=== PATIENT | male | born 1955 | race Caucasian/White ===

== ENCOUNTER 2016-05-26 06:38 | Day surgery (SDC) | payer BC ==
[2016-05-25 09:17] VITALS: BMI 35.8
[2016-05-26] MEDS ORDERED: MIDAZOLAM 2 MG/2 ML VIAL ONE (08:43)
[2016-05-26] MEDS ORDERED: fentaNYL (PF) 50 MCG/ML 2 ML AMP ONE (08:43)
[2016-05-26] MEDS ORDERED: ISOPROTERENOL 250 MCG/1.25 ML SYR IV ONE (08:43)
[2016-05-26] MEDS ORDERED: HYDROmorphone (PF) 1 MG/ML ONE (08:43)
[2016-05-26] MEDS ORDERED: IV FLUID CONTINUATION 900 ML IV ONE (09:00)
[2016-05-26] MEDS: LIDOCAINE 2% INJ 20 MG/ML SQ ONE ×2 (09:30→09:35)
[2016-05-26] MEDS ORDERED: HYDROcodone/APAP 5-325MG 1 EACH TAB PO PRN (13:09)
--- NOTE | 2016-05-26 13:41 | LTR ---
May 26, 2016 RE: Shayy Aiden Luisito Dear Gregory; I had the pleasure of seeing Aiden Lucas in electrophysiology followup. Aiden has episodes of supraventricular tachycardia. He was brought in for an EP study. 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 I will now stop atenolol and will follow him clinically. The procedure was successful without any acute complications. Thank you for entrusting me with your patient. Warm regards. Sincerely, JYOTI KERNS MD
[2016-05-26 13:42] VITALS: RESP 16
--- NOTE | 2016-05-26 13:43 | DS ---
DATE OF ADMISSION: 05/26/2016 DATE OF DISCHARGE: Aiden Lucas is a 61-year-old male patient who underwent evaluation for SVT. He was found to AV denis re-entry, slow pathway mapping and ablation was performed. The tachycardia was rendered noninducible. He was monitored overnight on telemetry. Atenolol will be discontinued. All other medications will be continued and he will follow with me as an outpatient post discharge.
[2016-05-26] MEDS ORDERED: ACETAMINOPHEN IV (For NPO) 1,000 MG in EMPTY BAG 1 BAG IVPB ONE (14:00)
[2016-05-26] MEDS: SODIUM CHLORIDE 0.9% 1,000 ML IV SCH (15:20)
--- NOTE | 2016-05-26 16:44 | PCN ---
DATE OF PROCEDURE: Mr. Aiden Lucas is a 61-year-old male patient who presented to the emergency room at [facility] with supraventricular tachycardia. He was adenosine-sensitive. He was brought in for an EP study and radiofrequency ablation. The patient was brought to the EP lab in a fasting state. Written informed consent was obtained prior to the procedure. The left shoulder area was prepped and draped as per protocol. A venous sheath was placed in the left axillary vein. Via this a decapolar catheter was positioned in the coronary sinus for coronary sinus pacing and recording. The right groin was prepped and draped as per protocol and 3 venous sheaths were placed in the right femoral vein. Via these, 3 diagnostic catheters were positioned (high right atrial catheter, His bundle catheter, RV catheter). Baseline measurements were as follows: sinus cycle length 876 ms, FL interval 97 ms, QRS 101 ms, QT 423 ms. AH interval 101 ms, HV interval 30 ms. Sinus node recovery times at 600 and 500 ms were 1029 and 1018 ms. VA Wenckebach block was 340 ms on Isuprel. Further testing was also performed on Isuprel. SVT was induced with straight pacing. Tachycardia cycle length was 429 ms. This was entrained when pacing from the right ventricle. VAV response was noted. Post-pacing interval was long. Septal times were less than 60 ms. A long sheath was placed, and via this a 4 mm-tip ablation catheter was placed. Three-D mapping was performed. His clavicle was tagged. Coronary sinus also was tagged. The tricuspid annulus was tagged. Mapping of the slow pathway was performed. RF ablation after the septum ( ) resulted in appearance of junctional rhythm followed by sinus rhythm. RF lesions ( ) delivered around this area. No more junctional rhythm was noted. A power of 50 miller and temperatures in the mid 50s to 60 degrees Celsius were achieved. Following that, a full EP study was performed. Tachycardia was rendered non-inducible. Isuprel was started and a detailed EP study was performed with up to double extrastimuli from the high right atrium, double extrastimuli from the coronary sinus, straight pacing from these 2 sites as well as from the RV as well as ventricular extrastimulation. No SVT was induced. There was no further evidence for slow pathway conduction. Patient tolerated the procedure well without any acute complications. All catheters were removed and hemostasis was achieved. The patient was transferred back to the recovery room. RESULT: Diagnostic EP study revealing AV node re-entry as a mechanism of tachycardia. Successful mapping and ablation of the slow pathway. The tachycardia was rendered non-inducible and there was no evidence of slow pathway conduction of the end of the procedure. Patient tolerated the procedure well without any acute complications. PLAN: Stop atenolol. Continue antihypertensive therapy. Continue all other medications.
[2016-05-26] MEDS ORDERED: ACETAMINOPHEN TAB 325 MG TAB PO PRN (19:00)
[2016-05-26] MEDS ORDERED: MAG HYDROX/AL HYDROX/SIMETH 30 ML CUP PO PRN (22:58)
[2016-05-27] MEDS: SODIUM CHLORIDE 0.9% 1,000 ML IV SCH (06:00)
[2016-05-27 07:50] VITALS: BP 144/72; PULSE 82; TEMP 97.6
--- NOTE | 2016-05-27 08:26 | PN ---
Mr. Aiden Lucas is doing well from cardiac standpoint. He underwent a successful ablation with slow pathway for treatment of AV denis re-entry. He is lying flat in bed. He has been walking around. He has no chest pain. No breathing trouble. No dizziness, lightheadedness. His rhythm has been normal. His groins have healed well. There is no hematoma. On examination, he is afebrile 97.6 degrees Fahrenheit, blood pressure 137/80 mmHg, 144/72 mmHg, heart rate is in the 80s. Head and neck examination is normal. Heart sounds are normal. No murmurs or gallops. Breath sounds are equal air entry bilaterally. Abdomen is soft, nontender. IMPRESSION: 1. Supraventricular tachycardia, AV denis re-entry, status post ablation. 2. Hypertension, on olmesartan hydrochlorothiazide. 3. Dyslipidemia. 4. Obesity with a body mass index of 35.8. 5. Likely sleep apnea. SUGGEST: Sleep apnea assessment. Follow up in the office in a week's time for a groin check and his future followups for the cardiac workups have been arranged.
== END 2016-05-27 09:37 | disposition home or self-care (01) ==
LOC: CATHEP 06:38 → 3OBS 12:30 → CATHEP 05-27 09:37
PROVIDERS: ATTEND Internal Medicine Clinical Cardiac Electrophysiology
DX: I47.1 Supraventricular tachycardia (principal); I10 Essential (primary) hypertension; E78.5 Hyperlipidemia, unspecified; E66.9 Obesity, unspecified; Z68.35 Body mass index [BMI] 35.0-35.9, adult; R94.31 Abnormal electrocardiogram [ECG] [EKG]; G47.33 Obstructive sleep apnea (adult) (pediatric); Z82.49 Family history of ischemic heart disease and other diseases of the circulatory system; Z79.899 Other long term (current) drug therapy; Z88.5 Allergy status to narcotic agent; Z87.891 Personal history of nicotine dependence
CPT/HCPCS: 93623; 93613; 93653; C1894; C1769; C1730 ×3; C1732; C1893; J2001; J2250; J3010; J1170; J0131; 99152; 99153

== ENCOUNTER → 2017-01-10 | Outpatient (CLI) | payer BC ==
[2017-01-10 11:56] LABS: ALT 46 U/L (21-72); AST 28 U/L (17-59); Alkaline Phosphatase 70 U/L (38-126); Anion Gap 10 mmol/L; Blood Urea Nitrogen 11 mg/dL (9-20); C Reactive Protein 15.2 mg/L (<10.0); Calcium 9.7 mg/dL (8.4-10.2); Carbon Dioxide 26 mmol/L (22-30); Chloride 102 mmol/L (98-107); Creatine Kinase 61 U/L (55-170); Glucose 104 mg/dL (74-99); Non-African American GFR(MDRD) >60 (>60 ml/min/1.73 sqM); Potassium 4.1 mmol/L (3.5-5.1); Rheumatoid Factor, Qnt <9 IU/mL (<12); Sodium 138 mmol/L (137-145); Total Bilirubin 0.6 mg/dL (0.2-1.3); Total Protein 6.1 g/dL (6.3-8.2); Uric Acid 9.8 mg/dL (3.5-8.5)
[2017-01-10 12:18] LABS: Aty Lym Flag Slight; CH 35.4; CHCM 36.2; HCT 43.6 % (39.0-53.0); HDW 2.82; HGB 14.9 gm/dL (13.0-17.5); MCH 33.7 pg (25.0-35.0); MCHC 34.3 g/dL (31.0-37.0); MCV 98.3 fL (80.0-100.0); Mean Platelet Volume 7.8; RBC 4.44 m/uL (4.30-5.90); WBC 5.3 k/uL (3.8-10.6); WBC (Perox) 5.03
[2017-01-10 12:56] LABS: Add Differential Manual Differential
[2017-01-10 12:59] LABS: Manual Review Performed; Nucleated Red Blood Cells 0 /100 WBC (0-0); Total Cells Counted 100
[2017-01-10 13:52] LABS: Erythrocyte Sedimentation Rate 24 mm/hr (0-15)
[2017-01-10 18:04] LABS: ANA w/Reflex to Titer NEGATIVE (NEGATIVE)
== END | disposition home or self-care (01) ==
LOC: LABWHC1 11:11
PROVIDERS: ATTEND Internal Medicine
DX: I10 Essential (primary) hypertension (principal); M13.0 Polyarthritis, unspecified; R53.83 Other fatigue
CPT/HCPCS: 36415; 80053; 82306; 82550; 84439; 84443; 84481; 84550; 85025; 85652; 86038; 86140; 86431

== ENCOUNTER → 2017-02-18 | Outpatient (CLI) | payer BC ==
[2017-02-18 11:47] LABS: C Reactive Protein 11.9 mg/L (<10.0); Uric Acid 6.5 mg/dL (3.5-8.5)
== END | disposition home or self-care (01) ==
LOC: LABWHC1 10:48
PROVIDERS: ATTEND Internal Medicine
DX: M13.0 Polyarthritis, unspecified (principal)
CPT/HCPCS: 36415; 84550; 86140

== ENCOUNTER → 2017-06-19 | Outpatient (CLI) | payer BC ==
[2017-06-19 11:19] LABS: ALT 34 U/L (21-72); AST 20 U/L (17-59); Albumin 3.8 g/dL (3.5-5.0); Alkaline Phosphatase 66 U/L (38-126); Anion Gap 10 mmol/L; Blood Urea Nitrogen 15 mg/dL (9-20); Carbon Dioxide 30 mmol/L (22-30); Chloride 104 mmol/L (98-107); Cholesterol 173 mg/dL (<200); Glucose 95 mg/dL (74-99); HDL Cholesterol 50 mg/dL (40-60); LDL Cholesterol,Calculated 78 mg/dL (0-99); Potassium 4.6 mmol/L (3.5-5.1); Sodium 144 mmol/L (137-145); Total Bilirubin 0.6 mg/dL (0.2-1.3); Total Protein 6.5 g/dL (6.3-8.2); Triglycerides 225 mg/dL (<150); Uric Acid 6.6 mg/dL (3.5-8.5)
[2017-06-19 11:41] LABS: Basophils % (A) 0 %; Eosinophils # (A) 0.1 k/uL (0-0.7); Eosinophils % (A) 1 %; HCT 46.3 % (39.0-53.0); HGB 15.3 gm/dL (13.0-17.5); Lymphocytes # (A) 1.3 k/uL (1.0-4.8); Lymphocytes % (A) 15 %; MCH 33.1 pg (25.0-35.0); MCHC 33.1 g/dL (31.0-37.0); MCV 99.8 fL (80.0-100.0); Mean Platelet Volume 7.3; Monocytes # (A) 0.7 k/uL (0-1.0); Monocytes % (A) 8 %; Neutrophils # (A) 6.3 k/uL (1.3-7.7); Neutrophils % (A) 73 %; Platelet Count 241 k/uL (150-450); RBC 4.64 m/uL (4.30-5.90); RDW 12.6 % (11.5-15.5); WBC 8.6 k/uL (3.8-10.6)
[2017-06-19 11:45] LABS: PSA Annual Screen 0.71 ng/mL (0.00-4.00)
== END | disposition home or self-care (01) ==
LOC: LABWHC1 10:31
PROVIDERS: ATTEND Internal Medicine
DX: Z00.00 Encounter for general adult medical examination without abnormal findings (principal); I10 Essential (primary) hypertension; E78.2 Mixed hyperlipidemia; M1A.00X0 Idiopathic chronic gout, unspecified site, without tophus (tophi); Z12.5 Encounter for screening for malignant neoplasm of prostate
CPT/HCPCS: 80061; 80053; 84550; 85025; 36415; G0103

== ENCOUNTER → 2017-09-15 | Outpatient (CLI) | payer BC ==
--- NOTE | 2017-09-15 12:33 | XR ---
EXAMINATION TYPE: XR lumbosacral spine min 4V DATE OF EXAM: 09/15/2017 CLINICAL HISTORY: pain COMPARISON: NONE TECHNIQUE: Frontal, lateral, and oblique images of the lumbar spine are obtained. FINDINGS: There are 5 lumbar type vertebral bodies identified. The lumbar spine shows satisfactory alignment without evidence of acute fracture or dislocation. Vertebral body heights are within normal limits. Moderate to severe multilevel degenerative disc space narrowing with spondylosis. Facet join t arthropathy. Grade 1 anterolisthesis L4 and L5 measuring 3 mm. I cannot exclude right-sided nephrol ithiasis. IMPRESSION: 1. Degenerative disc disease and spondylosis.
--- NOTE | 2017-09-15 12:36 | XR ---
EXAMINATION TYPE: XR Hip Bilateral Complete DATE OF EXAM: 09/15/2017 CLINICAL HISTORY: pain TECHNIQUE: AP and frogleg views of the bilateral hips are obtained. COMPARISON: None. FINDINGS: There is no acute fracture/dislocation evident. The joint space appears mildly narrowed. Osseous convex to the at the femoral necks bilaterally may reflect a degree of femoral acetabular i mpingement. The overlying soft tissue appears unremarkable. IMPRESSION: 1. Degenerative joint space narrowing. Correlate for femoral acetabular impingement. ICD 10 NO FRACTURE, INITIAL EVALUATION
== END | disposition home or self-care (01) ==
LOC: RADXRMAIN 11:41
PROVIDERS: ATTEND Internal Medicine
DX: M54.6 Pain in thoracic spine (principal); M25.552 Pain in left hip; M25.551 Pain in right hip
CPT/HCPCS: 72110; 73521

== ENCOUNTER → 2017-12-16 | Outpatient (CLI) | payer OTHER, BC ==
[2017-12-16 11:29] LABS: Basophils % (A) 1 %; Eosinophils # (A) 0.2 k/uL (0-0.7); Eosinophils % (A) 4 %; HCT 44.9 % (39.0-53.0); HGB 14.9 gm/dL (13.0-17.5); Lymphocytes # (A) 1.4 k/uL (1.0-4.8); Lymphocytes % (A) 21 %; MCH 32.6 pg (25.0-35.0); MCHC 33.3 g/dL (31.0-37.0); MCV 97.8 fL (80.0-100.0); Mean Platelet Volume 7.3; Monocytes # (A) 0.7 k/uL (0-1.0); Monocytes % (A) 10 %; Neutrophils # (A) 3.8 k/uL (1.3-7.7); Neutrophils % (A) 60 %; Platelet Count 265 k/uL (150-450); RBC 4.59 m/uL (4.30-5.90); RDW 13.1 % (11.5-15.5); WBC 6.3 k/uL (3.8-10.6)
[2017-12-16 11:49] LABS: ALT 36 U/L (21-72); AST 30 U/L (17-59); Albumin 3.9 g/dL (3.5-5.0); Alkaline Phosphatase 60 U/L (38-126); Anion Gap 7 mmol/L; Blood Urea Nitrogen 13 mg/dL (9-20); Calcium 9.7 mg/dL (8.4-10.2); Carbon Dioxide 29 mmol/L (22-30); Chloride 106 mmol/L (98-107); Cholesterol 130 mg/dL (<200); Glucose 105 mg/dL (74-99); HDL Cholesterol 44 mg/dL (40-60); LDL Cholesterol,Calculated 45 mg/dL (0-99); Potassium 4.6 mmol/L (3.5-5.1); Sodium 142 mmol/L (137-145); Total Bilirubin 0.8 mg/dL (0.2-1.3); Total Protein 6.3 g/dL (6.3-8.2); Triglycerides 207 mg/dL (<150); Uric Acid 6.2 mg/dL (3.5-8.5)
== END | disposition home or self-care (01) ==
LOC: LABWHC1 10:49
PROVIDERS: ATTEND Internal Medicine
DX: I10 Essential (primary) hypertension (principal); E78.2 Mixed hyperlipidemia; M10.9 Gout, unspecified
CPT/HCPCS: 36415; 80053; 80061; 84550; 85025

== ENCOUNTER → 2017-12-18 | Outpatient (CLI) | payer OTHER, BC ==
--- NOTE | 2017-12-18 18:39 | XR ---
EXAMINATION TYPE: XR lumbosacral spine min 4V DATE OF EXAM: 12/18/2017 COMPARISON: 09/15/2017 HISTORY: Hip pain and back pain TECHNIQUE: 5 views FINDINGS: The lumbar vertebra have normal alignment. There is spurring of the endplates. Abdominal ao rta is atheromatous. Sacroiliac joints appear intact. There is 5 mm calcification in the upper pole r ight kidney. IMPRESSION: Spondylotic changes. No fracture. No change compared to old exam.
--- NOTE | 2017-12-19 07:55 | XR ---
EXAMINATION TYPE: XR Hip Complete RT, XR pelvis AP view DATE OF EXAM: 12/18/2017 CLINICAL HISTORY: pain TECHNIQUE: AP and frogleg views of the right hip are obtained. Single view the pelvis is also submit christian. COMPARISON: None. FINDINGS: There is no acute fracture/dislocation evident. Moderate degenerative narrowing is noted o f the bilateral hip joints right greater than left. Osseous convex is noted at the lateral margin of the right femoral head/neck which may result in femoral acetabular impingement. Correlate clinically. The overlying soft tissue appears unremarkable. IMPRESSION: 1. There is no acute fracture or dislocation. ICD 10 NO FRACTURE, INITIAL EVALUATION
== END | disposition home or self-care (01) ==
LOC: RADXRMAIN 17:23
PROVIDERS: ATTEND Internal Medicine
DX: M25.551 Pain in right hip (principal); M54.41 Lumbago with sciatica, right side
CPT/HCPCS: 72110; 72170; 73502

== ENCOUNTER → 2018-02-22 | Outpatient (CLI) | payer OTHER, BC ==
[2018-02-22 12:26] LABS: Appearance,Urine Clear (Clear); Bilirubin,Urine Negative (Negative); Blood,Urine Negative (Negative); Color,Urine Yellow; Glucose,Urine (UA) Negative (Negative); Ketones,Urine Negative (Negative); Leukocyte Esterase,Urine Negative (Negative); Nitrite,Urine Negative (Negative); PH, Urine 5.5 (5.0-8.0); Protein,Urine Negative (Negative); Specific Gravity,Urine 1.018 (1.001-1.035); Urobilinogen,Urine <2.0 mg/dL (<2.0)
== END ==
LOC: LABWHC1 11:15
PROVIDERS: ATTEND Physical Medicine & Rehabilitation
DX: M54.5 Low back pain (principal); M45.6 Ankylosing spondylitis lumbar region; M47.26 Other spondylosis with radiculopathy, lumbar region; M51.17 Intervertebral disc disorders with radiculopathy, lumbosacral region; M71.38 Other bursal cyst, other site; G60.3 Idiopathic progressive neuropathy; M16.11 Unilateral primary osteoarthritis, right hip
CPT/HCPCS: 36415; 81003; 82310; 83970; 84207; 84425; 87522

== ENCOUNTER → 2018-05-18 | Outpatient (CLI) | payer BC, MEDICARE ==
[2018-05-18 11:34] LABS: HCT 44.7 % (39.0-53.0); HGB 15.1 gm/dL (13.0-17.5); MCH 33.6 pg (25.0-35.0); MCHC 33.7 g/dL (31.0-37.0); MCV 99.8 fL (80.0-100.0); Mean Platelet Volume 7.7; Platelet Count 283 k/uL (150-450); RBC 4.48 m/uL (4.30-5.90); RDW 13.6 % (11.5-15.5); WBC 6.4 k/uL (3.8-10.6)
[2018-05-18 11:41] LABS: Appearance,Urine Clear (Clear); Bilirubin,Urine Negative (Negative); Blood,Urine Negative (Negative); Color,Urine Yellow; Glucose,Urine (UA) Negative (Negative); Ketones,Urine Negative (Negative); Leukocyte Esterase,Urine Negative (Negative); Nitrite,Urine Negative (Negative); PH, Urine 5.5 (5.0-8.0); Protein,Urine Negative (Negative); Specific Gravity,Urine 1.011 (1.001-1.035); Urobilinogen,Urine <2.0 mg/dL (<2.0)
[2018-05-18 11:43] LABS: ALT 36 U/L (21-72); AST 24 U/L (17-59); Albumin 3.9 g/dL (3.5-5.0); Alkaline Phosphatase 50 U/L (38-126); Anion Gap 6 mmol/L; Blood Urea Nitrogen 16 mg/dL (9-20); Calcium 10.1 mg/dL (8.4-10.2); Carbon Dioxide 29 mmol/L (22-30); Chloride 106 mmol/L (98-107); Glucose 102 mg/dL (74-99); Potassium 4.7 mmol/L (3.5-5.1); Sodium 141 mmol/L (137-145); Total Bilirubin 0.9 mg/dL (0.2-1.3); Total Protein 6.5 g/dL (6.3-8.2)
[2018-05-18 11:48] LABS: INR 0.9 (<1.2); Prothrombin Time 9.8 sec (9.0-12.0)
[2018-05-18 11:50] LABS: Partial Thromboplastin Time 21.6 sec (22.0-30.0)
== END | disposition home or self-care (01) ==
LOC: LABPAT 10:17
PROVIDERS: ATTEND Orthopaedic Surgery Sports Medicine
DX: Z01.818 Encounter for other preprocedural examination (principal); Z01.812 Encounter for preprocedural laboratory examination; Z79.01 Long term (current) use of anticoagulants
CPT/HCPCS: 80053; 81003; 85027; 85610; 85730; 87070; 93005

== ENCOUNTER 2018-06-06 11:22 | Inpatient (IN) | payer BC, MEDICARE ==
[2018-06-01 14:59] VITALS: BMI 33.2
[~2018-06-06 11:22] MED LIST: MIDAZOLAM (PF) 2 MG/2 ML VIAL IV PRN; ONDANSETRON 4 MG/2 ML VIAL IVP ONE; ROPIVACAINE 246.25 MG, EPINEPHrine 0.5 MG, KETOROLAC 30 MG, cloNIDine HCL/PF 80 MCG, WA... MISCELLANE ONE; TRANEXAMIC ACID 1,000 MG in SODIUM CHLORIDE 0.9% 50 ML IVPB ONE; ceFAZolin IN SWFI 2 GM/20 ML SYRINGE IVP ONE
[2018-06-06] MEDS ORDERED: NALOXONE 0.4 MG/ML 1 ML VIAL IV PRN (13:21)
[2018-06-06] MEDS ORDERED: hydrOXYzine PAMOATE 25 MG CAP PO PRN (13:21)
[2018-06-06] MEDS ORDERED: HYDROcodone/APAP 5-325MG 1 EACH TAB PO PRN ×2 (13:21)
[2018-06-06] MEDS ORDERED: NA PHOS,M-B/NA PHOS,DI-BA 133 ML ENEMA RECTAL PRN (13:21)
[2018-06-06] MEDS ORDERED: HYDROcodone/APAP 10-325MG 1 EACH TAB PO PRN (13:21)
[2018-06-06] MEDS ORDERED: ONDANSETRON 4 MG/2 ML VIAL IVP PRN (13:21)
[2018-06-06] MEDS ORDERED: BISACODYL 10 MG SUPP RECTAL PRN (13:21)
[2018-06-06] MEDS ORDERED: HYDROmorphone 0.5 MG/0.5 ML SYRINGE IVP PRN ×3 (13:21)
[2018-06-06] MEDS ORDERED: DIAZEPAM 5 MG TAB PO PRN (13:21)
[2018-06-06] MEDS ORDERED: MAGNESIUM HYDROXIDE 2,400 MG/10 ML CUP PO PRN (13:21)
[2018-06-06] MEDS ORDERED: traMADol 50 MG TAB PO PRN (13:21)
[2018-06-06] MEDS ORDERED: TEMAZEPAM 15 MG CAP PO PRN (13:21)
[2018-06-06] MEDS: LACTATED RINGERS 1,000 ML IV SCH ×3 (13:27→23:15)
[2018-06-06] MEDS: DEXAMETHASONE SOD PHOSPHATE 10 MG/ML 1 ML VIAL IV ONE ×2 (13:29→19:20)
[2018-06-06] MEDS ORDERED: ONDANSETRON 4 MG/2 ML VIAL IVP ONE (13:29)
[2018-06-06] MEDS: MELOXICAM 7.5 MG TAB PO ONE ×2 (13:30→19:20)
[2018-06-06] MEDS: ACETAMINOPHEN TAB 500 MG TAB PO ONE ×2 (13:30→19:19)
[2018-06-06] MEDS ORDERED: MIDAZOLAM 2 MG/2 ML VIAL ONE (14:45)
[2018-06-06] MEDS ORDERED: SUCCINYLCHOLINE CHLORIDE VIAL 200 MG/10 ML VIAL IV ONE (14:45)
[2018-06-06] MEDS ORDERED: TRANEXAMIC ACID 1,000 MG/10 ML VIAL ONE (14:45)
[2018-06-06] MEDS ORDERED: PROPOFOL 10 MG/ML 20 ML VIAL IV ONE (14:45)
[2018-06-06] MEDS ORDERED: PHENYLEPHRINE-0.9% NACL SYG 1 MG/10 ML SYRINGE ONE (14:45)
[2018-06-06] MEDS ORDERED: SODIUM CHLORIDE 0.9% 100 ML BAG ONE (14:45)
[2018-06-06] MEDS ORDERED: fentaNYL (PF) 50 MCG/ML 2 ML AMP ONE (14:45)
[2018-06-06] MEDS ORDERED: ePHEDrine SULFATE/0.9% NACL/PF 50 MG/5 ML SYRINGE IV ONE (14:45)
[2018-06-06] MEDS ORDERED: HYDROmorphone (PF) 1 MG/ML ONE (14:45)
[2018-06-06] MEDS ORDERED: LIDOCAINE 1% INJ 10MG/ML (20 ML MDV) ONE (14:45)
[2018-06-06] MEDS ORDERED: LACTATED RINGERS 1,000 ML IV ONE (16:42)
[2018-06-06] MEDS: HYDROmorphone 0.5 MG/0.5 ML SYRINGE IVP PRN ×2 (17:18→17:30)
--- NOTE | 2018-06-06 17:27 | XR ---
EXAMINATION TYPE: XR knee limited RT DATE OF EXAM: 06/06/2018 COMPARISON: NONE HISTORY: Postop knee surgery TECHNIQUE: 2 views FINDINGS: There is right knee prosthesis. Components are in anatomic position. IMPRESSION: No complicating process seen.
[2018-06-06] MEDS: ASPIRIN 325 MG TAB PO SCH (20:10)
[2018-06-06] MEDS: SENNOSIDES-DOCUSATE SODIUM 1 EACH TAB PO SCH (20:10)
--- NOTE | 2018-06-06 20:13 | OP ---
OPERATIVE REPORT DATE OF PROCEDURE: 06/06/2018 SURGEON: Carl Mcgee MD. FINAL APPLICATION REVIEWER: Porter DING. PREOPERATIVE DIAGNOSIS: Right knee osteoarthrosis. POSTOPERATIVE DIAGNOSIS: Right knee osteoarthrosis. OPERATION: Right total knee arthroplasty. ANESTHESIA: General endotracheal. ESTIMATED BLOOD LOSS: 100 mL. TOURNIQUET TIME: 45 minutes at 250 mmHg. COMPLICATIONS: None apparent. DRAINS: None. DISPOSITION: Post-Anesthesia Care Unit. INDICATIONS: Aiden is a very pleasant 63-year-old male with a longstanding history of right knee pain. History and physical examination were consistent with advanced right knee osteoarthrosis. He has been through a fairly significant course of nonoperative management at this point. Further treatment options were discussed, and he has decided to go forward with right total knee arthroplasty. The risks of the procedure were discussed with him in detail. These risks include but are not limited to risk of infection, nerve damage, bleeding, pain, and a small risk of deep vein thrombosis which could lead to fatal pulmonary embolism. There is also a risk of loosening of the implant which could require revision operation. The patient understands these risks. All of his questions were answered to his satisfaction. Appropriate informed consent was obtained. DESCRIPTION OF THE PROCEDURE: The patient was identified in the preoperative holding area. Surgical site was marked by both the patient and myself. He was given 2 grams of Ancef IV for prophylactic purposes. He was then transferred to the operative suite. He was placed supine on the operating room table. A general anesthetic was then administered and dosed per the anesthesia department without apparent complication. Examination under anesthesia was then performed. The patient was 2-3 degrees shy of full extension. He had 100 degrees of flexion, and the medial collateral ligament, lateral collateral ligament and posterior cruciate ligaments were stable. Tourniquet was then placed high on the right upper thigh, well padded in preparation for surgery. The patient's right lower extremity was then prepped and draped in the usual sterile fashion. Standard surgical pause then was undertaken to ensure that we were operating on the correct site and that appropriate preoperative antibiotics had been given. All staff in the room were in agreement and we proceeded. The outlines of the patella were marked with a surgical pen. A planned 12 cm vertical incision centered over the patella was marked with a surgical pen. The leg was then exsanguinated with an Esmarch dressing. The knee was then flexed and the tourniquet was inflated to 250 mmHg. The total tourniquet time for the procedure was 45 minutes. Incision was then made with a 10-blade scalpel. Dissection was carried down sharply to the overlying fascia. Great care was taken to minimize the skin flaps. The knee was then exposed using a standard medial parapatellar approach. A small cuff of quadriceps tendon was left for suturing. He was in a bit of varus preoperatively. A standard medial release was then made. The superficial medial collateral ligament was dissected off of the bone around to the posterior aspect of the proximal tibia. The medial meniscus was then excised as well. The lateral meniscus was also released anteriorly. The leg was then externally rotated. The patella was everted. The knee was flexed. The retractors were then placed to protect the collateral ligaments. I then proceeded to remove the infrapatellar fat pad. This was excised sharply tangentially with the fibers of the patellar tendon. I then proceeded to remove the peripheral osteophytes. This was done with a rongeur. I then proceeded with the distal femoral resection. He did have near-full extension. The planned 9 mm resection was then done. The femoral canal was then entered in the midline of the femur approximately 10 mm anterior to the origin of the posterior cruciate ligament. The ying was then advanced down the center of the femur and placed intramedullary. Based on the preoperative radiographs, the angle between the anatomic and mechanical axis of the femur was approximately 4-5 degrees. The valgus angle of the distal femoral cutting guide was then set at 4 degrees for the right knee. The distal femoral cutting guide was then advanced over the intramedullary ying. This was seated firmly against the femur. I then, as mentioned, planned to take 9 mm off the distal femur. The cutting block was then secured onto the femur with pins. The jig was removed and the distal femoral cut was made through the slot of the block. The pins were then removed and the distal femoral cutting block was removed. The accuracy of the distal femoral cuts was checked with 2 flat bars. I then proceeded with femoral sizing. The posterior referencing sizing guide was held firmly against the resected distal surface of the femur. Posterior condyles were resting on the posterior plane of the guide. The sizing stylus was then placed onto the anterior femur. The size was measured as a size 9. I then assessed for femoral rotation. Plan was for 3 degrees of external rotation. Three degrees of external rotation was placed onto the jig. These holes were then marked. I then confirmed the rotation by 3 separate methods. This was done using epicondylar axis as well as Whitesides line and posterior referencing. It was deemed that the external rotation was proper. I then went forward with placing the femoral cutting block. This was placed over the previously placed pin holes. The Ryan wing was then placed on to the anterior slots to ensure that we would not notch the anterior femur with the anterior femoral cut. I then proceed with the anterior femoral cut. This was flush with the anterior cortex of the femur. Posterior cuts were then made followed by the anterior chamfer cut, then the posterior chamfer cut. The cutting block was then removed. Throughout the resection, the collateral ligaments were protected with retractors. I then placed a trial size 9 femur. It fit very nice medial to lateral and fit flush with the distal end of the femur. The drill holes were then made. I then proceeded with the tibial cut. I planned for a cruciate-retaining knee. The guide was placed and set for varus, valgus and for slope. The height was set for an approximate 2 mm resection from the medial tibial plateau, which was the lower side. I was happy with the alignment and amount of resection. The cutting block was then pinned to the proximal tibia. The alignment ying was removed and the proximal tibia was resected with a reciprocating saw. Again this was done with retractors protecting the collateral ligaments as well as the posterior cruciate ligament. I then proceeded to evaluate the flexion and extension gaps. A 10 mm block was placed. The flexion and extension gaps were equal. I then proceeded with resection of the posterior osteophytes. He had very minimal posterior osteophytes. This was done using a curved osteotome. This resected the posterior osteophytes, and posterior capsule stripping was also done off the posterior aspect of the femur. The osteophytes were removed. I then proceeded with resection of the patella. The thickness of the patella was measured using the caliper. The thickness was measured at 24 mm. The thickness of the anticipated patellar dome was taken into account. The resection was then performed and confirmed to be equal in 4 quadrants using a caliper. Approximately 14 mm of bone remained after the resection. A 32 x 8.5 mm standard patellar trial was then placed. The holes were drilled. The trial was then placed. I then proceeded with sizing the tibial plate. A size F tibial plate fit very nicely. I then placed the trial femur, the tibial tray and the patellar button. A 10 mm trial tibial insert was also placed. The components fit very nicely. He had full extension and flexion. The extension and flexion gaps were equal and stable to both varus and valgus stress. The patella tracked appropriately. Tibial tray rotation was marked with a Bovie. This was externally rotated properly. I then proceeded with tibial preparation. I first drilled the femoral holes and removed the femoral component. The tibial tray was then set for proper external rotation as well as mediolateral placement onto the tibia. It was then pinned into place. I then proceeded with punching the keel. I then decided to proceed with cementing of all of our components. The knee was thoroughly irrigated with sterile saline solution via pulse lavage. The lateral geniculate artery was identified and cauterized. All blood was removed from the bone of the tibia, femur and patella with pulse lavage. I then proceeded with cementing. Two packs of antibiotic bone cement were prepared on the back table by the surgical brace maker. I then proceeded with cementing the tibia first. The cement was impacted into the keel as well as deeply seated into the bone. A second coat of cement was then placed. The tibia was then impacted into place. Excess cement was removed with Willards's and Joker's. I then proceed with cementing the femoral component. The femoral component was also cemented using standard technique. Excess cement was removed. A 10 mm trial insert was then placed into the knee. It was brought into full extension with a constant axial load placed until the cement had hardened. The patellar component was then cemented. This was held firmly with a compressive device until the cement had dried. When cement had dried, the knee was taken out of extension. All excess cement was removed from around the prosthesis. I then trialed the knee with a 10 mm insert. The flexion and extension gaps were appropriate. The knee was stable. It came into full extension. I decided to go forward with a 10 mm cross-linked cruciate-retaining tibial insert. Polyethylene was then placed onto the tibial tray and locked into place. The knee was then reduced. The knee was again further irrigated with sterile saline solution with antibiotic added. The tourniquet was then deflated. The total tourniquet time for the procedure was 45 minutes at 250 mmHg. Final components were Vinod Persona size 9 cruciate-retaining femoral component, a size F tibial tray, a 10 mm medial-congruent cruciate-retaining polyethylene insert, and a 32 x 8.5 mm patella. I then proceeded with closure. Again the knee was thoroughly irrigated. The quadriceps tendon and the medial retinaculum were reapproximated with #2 Ethibond suture. The extensor mechanism was then closed with a running #2 Quill suture. Subcutaneous tissues were then closed with 2-0 Vicryl interrupted suture. The skin was closed with a running 3-0 Quill suture. Dermabond was applied to the incision. Sterile compressive dressing was then applied. All sponge and needle counts were deemed correct prior to closure. The patient tolerated the procedure without apparent complication. He was transferred to the recovery room in stable. MMODL / IJN: [id number] /
[2018-06-06] MEDS ORDERED: DOXEPIN 25 MG CAP PO PRN (21:10)
[2018-06-06] MEDS ORDERED: NADOLOL 20 MG TAB PO PRN (21:10)
--- NOTE | 2018-06-06 22:44 | P.CONS ---
History of Present Illness - Reason for Consult Consult date: 06/06/18 post op medical management Requesting physician: Carl Mcgee - Chief Complaint s/p elective right total knee replacement - History of Present Illness 63-year-old male with history of hypertension hyperlipidemia and childhood asthma Patient presented electively for right total knee arthroplasty due to severe advanced degenerative joint disease refractory to conservative management pain has been interfering with activities of daily living. Patient tolerated procedure well he is seen postoperatively no immediate observed complications, patient did not pass urine or bowel movements. He tolerated by mouth intake denies any chest pain or trouble breathing he reports that pain is well tolerated and controlled at this time. Patient denies any fevers or chills, denies any shortness of breath or chest pain, denies any abdominal pain nausea vomiting. Patient denies any GI bleeding. Patient denies any focal neurologic deficits. History of asthma patient is well controlled he doesn't use anything at home he outgrew it since he was a kid. Review of Systems Pertinent positives as noted in HPI. All other systems were reviewed and are negative Past Medical History Past Medical History: Asthma, Hyperlipidemia, Hypertension, Osteoarthritis (OA) Additional Past Medical History / Comment(s): HX OF SVT WITH CARDIAC ABLATION, PAST HX OF ASTHMA., GOUT., BACK PAIN WITH ABLATION OF NERVES IN BACK (05/21/18). , TINNITUS LEFT EAR, SYNTHETIC EAR DRUM LEFT EAR., PAIN RIGHT KNEE. History of Any Multi-Drug Resistant Organisms: None Reported Past Surgical History: Cardiac Ablation, Cholecystectomy, Ear Surgery, Orthopedic Surgery Additional Past Surgical History / Comment(s): Knee arthroscopy right knee x3. Mass on chest wall. Nasal surg. LEFT TYMPANOPLASTY, synthetic ear drum. , rooster comb injections in knee., ablation of nerves in back (Dr Bull) Past Anesthesia/Blood Transfusion Reactions: No Reported Reaction, Motion Sickness Past Psychological History: No Psychological Hx Reported Smoking Status: Former smoker Past Alcohol Use History: Occasional Additional Past Alcohol Use History / Comment(s): QUIT SMOKING 17 YRS AGO (1999) , SMOKED UP TO 2 PPD. Past Drug Use History: None Reported - Past Family History Father Family Medical History: Cancer Additional Family Medical History / Comment(s): PANCREATIC CANCER Brother(s) Family Medical History: Cancer Additional Family Medical History / Comment(s): BLADDER CANCER Sister(s) Family Medical History: Cancer Additional Family Medical History / Comment(s): BREAST CANCER Medications and Allergies Home Medications Medication Instructions Recorded Confirmed Type Atorvastatin [Lipitor] 10 mg PO QAM 07/28/15 06/06/18 History Olmesartan/Hydrochlorothiazide 1 tab PO QAM 07/28/15 06/06/18 History [Benicar Hct 20-12.5 mg Tablet] Ascorbic Acid [Vitamin C] 1,000 mg PO DAILY 06/01/18 06/06/18 History Doxepin [SINEquan] 25 mg PO HS PRN 06/01/18 06/06/18 History Febuxostat [Uloric] 40 mg PO DAILY PRN 06/01/18 06/06/18 History Multivitamins, Thera [Multivitamin 1 tab PO DAILY 06/01/18 06/06/18 History (formulary)] Nadolol [Corgard] 10 mg PO BID PRN 06/01/18 06/06/18 History Naproxen Sodium [Aleve] 220 mg PO DIRECTED PRN MDD 440 06/01/18 06/06/18 History Tart [place] Tab With Turmeric 1 tab PO DAILY 06/01/18 06/06/18 History Vitamin B Complex 1 cap PO DAILY 06/01/18 06/06/18 History Allergies Allergy/AdvReac Type Severity Reaction Status Date / Time propoxyphene napsylate Allergy Rash/Hives Verified 06/06/18 16:32 [From Veronica-N] adhesive tape AdvReac Unknown red , Verified 06/06/18 16:32 irritated skin Rooster Comb Injection Allergy Unknown Rash/Hives Uncoded 06/06/18 13:22 Physical Exam Vitals: Vital Signs Temp Pulse Resp BP Pulse Ox 06/06/18 18:15 98.1 F 76 16 144/75 94 L 06/06/18 17:45 76 16 116/70 93 L 06/06/18 17:30 82 16 116/64 96 06/06/18 17:17 80 16 114/63 96 06/06/18 17:02 78 16 122/62 100 06/06/18 16:50 96.9 F L 78 16 114/65 100 06/06/18 13:20 97.0 F L 69 16 173/81 100 Intake and Output 06/06/18 06/06/1819 06:59 14:59 22:59 Intake Total 1000 250 Output Total 100 Balance 1000 150 Intake: IV 1000 250 Output: Estimated Blood Loss 100 Constitutional: No acute distress, conversant, pleasant Eyes: Anicteric sclerae, moist conjunctiva, no lid-lag Pupils equal round reactive to light ENMT: NC/AT Oropharynx clear, no erythema, no exudates Neck: Supple, FROM, no masses, or JVD No carotid bruits No thyromegaly Lungs: Clear to auscultation Clear to percussion Normal respiratory effort, no accessory muscle use Cardiovascular: Heart regular in rate and rhythm, No murmurs, gallops, or rubs No peripheral edema Abdominal: Soft Nontender, no guarding, rebound or rigidity Abdomen moving with respiration Normoactive bowel sounds No hepatomegaly, No splenomegaly No palpable mass No abdominal wall hernia noted Skin: Normal temperature, tone, texture, turgor No induration No subcutaneous nodules No rash, lesions No ulcers Extremities: Right knee and surgical dressing looks dry intact and clean No digital cyanosis No clubbing Pedal pulses intact and symmetrical Radial pulses intact and symmetrical No calf tenderness Psychiatric: Alert and oriented to person, place and time Appropriate affect fair judgment Neuro Muscles Strength 5/5 in all 4 extremities limited exam over right lower extremity due to post surgery Sensation to light touch grossly present throughout Cranial nerves II-XII grossly intact No focal sensory deficits Lymphatics: no palpable cervical or supraclavicular , or inguinal lymph nodes Assessment and Plan Assessment: 63-year-old male with history of hypertension presented for elective right total knee arthroplasty patient is seen postoperatively for management of hypertension. Plan: Right knee osteoarthritis status post total knee arthroplasty postoperative day 0 Management per orthopedics for DVT prophylaxis and pain control Incentive spirometry Hypertension currently controlled Resume home medications Hyperlipidemia resume statin DVT prophylaxis per orthopedic recommendations Follow-up morning labs hemoglobin and renal function Patient is full code Thank you for allowing us to participate in the care of this patient. Do not hesitate to contact us with questions. Someone can be reached from the [facility] hospitalist group at all hours of the day at [phone].
[2018-06-06] MEDS: HYDROcodone/APAP 7.5-325MG 1 EACH TAB PO PRN (22:46)
[2018-06-07] MEDS: ceFAZolin IN SWFI 2 GM/20 ML SYRINGE IVP SCH ×2 (00:20→08:32)
[2018-06-07] MEDS: LACTATED RINGERS 1,000 ML IV SCH ×2 (01:44→14:21)
[2018-06-07] MEDS: HYDROCHLOROTHIAZIDE 12.5 MG CAP PO SCH (08:30)
[2018-06-07] MEDS: ATORVASTATIN 10 MG TAB PO SCH (08:30)
[2018-06-07] MEDS: MULTIVITAMINS, THERA 1 EACH TAB PO SCH (08:30)
[2018-06-07] MEDS: ASPIRIN 325 MG TAB PO SCH ×2 (08:31→20:28)
[2018-06-07] MEDS: LOSARTAN 50 MG TAB PO SCH (08:31)
[2018-06-07 08:36] LABS: Basophils % (A) 0 %; Eosinophils % (A) 0 %; HCT 41.3 % (39.0-53.0); HGB 13.6 gm/dL (13.0-17.5); Lymphocytes # (A) 0.8 k/uL (1.0-4.8); Lymphocytes % (A) 5 %; Macrocytosis Slight; Mean Platelet Volume 7.1; Monocytes % (A) 7 %; Neutrophils # (A) 13.1 k/uL (1.3-7.7); Neutrophils % (A) 87 %; Platelet Count 205 k/uL (150-450); RBC 4.01 m/uL (4.30-5.90); RDW 13.3 % (11.5-15.5); WBC 15.2 k/uL (3.8-10.6)
[2018-06-07] MEDS ORDERED: OLMESARTAN PO SCH (09:00)
[2018-06-07] MEDS ORDERED: [UNRECOGNIZED DRUG - OTHER] PO SCH (09:00)
[2018-06-07] MEDS ORDERED: HYDROCHLOROTHIAZIDE PO SCH (09:00)
--- NOTE | 2018-06-07 09:45 | P.PN ---
Subjective Progress Note Date: 06/07/18 Principal diagnosis: Right TKA Patient is seen at bedside this morning. He is postop day #1 from right total knee arthroplasty.. He has pain at the surgical site as expected but denies any new complaints. He denies numbness, tingling or calf pain. Review of systems is negative for fever, chills, chest pain, shortness of breath or other Objective - Vital Signs Vital signs: Vital Signs Temp 97.6 F 06/07/18 08:33 Pulse 75 06/07/18 08:33 Resp 18 06/07/18 08:33 BP 163/69 06/07/18 08:33 Pulse Ox 99 06/07/18 08:33 Intake & Output 06/06/18 06/07/18 06/07/18 18:59 06:59 18:59 Intake Total 1250 1890 Output Total 100 Balance 1150 1890 Intake: IV 1250 Intake, IV Titration 1000 Amount Lactated Ringers 1,000 ml 1000 @ 100 mls/hr IV .Q10H ALFA Rx#:[id number] Oral 890 Output: Estimated Blood Loss 100 Other: # Voids 2 - Exam Inspection reveals a benign surgical wound. There is no active bleeding or drainage. Neurovascular status is intact throughout the lower extremity with motor and sensation fully intact. Calf is soft and nontender. 2+ dorsalis pedis pulse and less than 2 second cap refill is present. - Constitutional General appearance: Present: no acute distress - Labs CBC & Chem 7: 06/07/18 07:32 Labs: Abnormal Lab Results - Last 24 Hours (Table) 06/07/18 Range/Units 07:32 WBC 15.2 H (3.8-10.6) k/uL RBC 4.01 L (4.30-5.90) m/uL MCV 103.0 H (80.0-100.0) fL Neutrophils # 13.1 H (1.3-7.7) k/uL Lymphocytes # 0.8 L (1.0-4.8) k/uL Assessment and Plan (1) Osteoarthritis of right knee Narrative/Plan: He will continue with routine postop orthopedic protocol including pain management, wound care, PT, DVT prophylaxis and medical management. Expect that he will transfer to home tomorrow Current Visit: Yes Status: Acute Priority: Medium Code(s): M17.11 - UNILATERAL PRIMARY OSTEOARTHRITIS, RIGHT KNEE SNOMED Code(s): 678148396697195 (2) Status post total right knee replacement Current Visit: Yes Status: Acute Priority: Medium Code(s): Z96.651 - PRESENCE OF RIGHT ARTIFICIAL KNEE JOINT SNOMED Code(s): 0720417486817 Time with Patient: Less than 30
[2018-06-07] MEDS ORDERED: CALCIUM CARBONATE 500 MG CHEWABLE PO PRN (12:11)
--- NOTE | 2018-06-07 12:31 | P.PN ---
Subjective Progress Note Date: 06/07/18 The patient is a 63-year-old male with a past medical history of hypertension, hyperlipidemia, and severe right knee OA status post right knee total arthroplasty postop day #1 was seen for follow-up. The patient was in good spirits and endorsed soreness of the right knee that has been ambulating to the restroom and notes that his pain is well controlled. He denied fever, chills, chest pain, or shortness of breath. He has been passing flatness and urinating. He has not had a bowel movement as of yet. He denied chest pain, shortness of breath, nausea, vomiting, or abdominal pain. Objective - Vital Signs Vital signs: Vital Signs Temp 97.6 F 06/07/18 08:33 Pulse 75 06/07/18 08:33 Resp 18 06/07/18 08:33 BP 163/69 06/07/18 08:33 Pulse Ox 99 06/07/18 08:33 Intake & Output 06/06/18 06/07/18 06/07/18 18:59 06:59 18:59 Intake Total 1250 1890 Output Total 100 Balance 1150 1890 Intake: IV 1250 Intake, IV Titration 1000 Amount Lactated Ringers 1,000 ml 1000 @ 100 mls/hr IV .Q10H ALFA Rx#:[id number] Oral 890 Output: Estimated Blood Loss 100 Other: # Voids 2 - Exam General: Non-toxic, in no acute distress, appears stated age, obese male HEENT: NC/AT, anicteric sclerae, moist conjunctiva, no lid-lag, PERRLA Cardiovascular: S1/S2 wnl, no murmurs, rubs, or gallops Lungs: Clear to auscultation, normal respiratory effort, no accessory muscle use Abdominal: Soft, non-tender, non-distended, no guarding, rebound, or rigidity Skin: Warm, dry Extremities: Right knee dressing in place with ice packs, no edema noted Psychiatric: Alert and oriented to person, place and time, appropriate affect Neuro: CN II-XII grossly intact, Strength 5/5 in all 4 extremities, Speech intact, Sensation to light touch grossly intact throughout - Labs CBC & Chem 7: 06/07/18 07:32 Labs: Abnormal Lab Results - Last 24 Hours (Table) 06/07/18 Range/Units 07:32 WBC 15.2 H (3.8-10.6) k/uL RBC 4.01 L (4.30-5.90) m/uL MCV 103.0 H (80.0-100.0) fL Neutrophils # 13.1 H (1.3-7.7) k/uL Lymphocytes # 0.8 L (1.0-4.8) k/uL Assessment and Plan Plan: Pain control for Right knee osteoarthritis status post total arthroplasty POD #1 -As per the orthopedic services -Continue with incentive spirometer -Currently on pain control with [place], Dilaudid, tramadol. Defer to the surgery service. Leukocytosis -Likely reactive, no signs of infection at this time. Will monitor CBC. Hypertension, controlled -Continue with home meds Hyperlipidemia -Continue with home meds DVT prophylaxis -As per orthopedic service
[2018-06-07] MEDS: HYDROcodone/APAP 7.5-325MG 1 EACH TAB PO PRN ×2 (14:14→20:28)
[2018-06-07] MEDS: SENNOSIDES-DOCUSATE SODIUM 1 EACH TAB PO SCH (23:33)
[2018-06-08 01:27] VITALS: TEMP 98
[2018-06-08] MEDS: HYDROcodone/APAP 7.5-325MG 1 EACH TAB PO PRN ×3 (01:58→12:18)
[2018-06-08 07:08] VITALS: BP 132/77; PULSE 60; RESP 16
--- NOTE | 2018-06-08 08:46 | P.DS ---
Providers Date of admission: 06/06/18 12:24 Expected date of discharge: 06/08/18 Attending physician: Carl Mcgee Consults: 06/06/18 13:21 Consult Physician Routine Consulting Provider: Ramandeep Nunn Consult Reason/Comments: post op medical management Do you want consulting provider notified?: Yes Primary care physician: Gregory Hahn - Discharge Diagnosis(es) (1) Osteoarthritis of right knee Current Visit: Yes Status: Acute Priority: Medium (2) Status post total right knee replacement Patient was admitted to the OR on 06/06/2018 to undergo a right total knee arthroplasty. He had failed conservative measures as an outpatient and desired to proceed with elective surgery after given informed consent. He underwent the above procedure which he tolerated well without complication. Postoperative hospital course has remained without complication. On day of discharge he is afebrile, vital signs stable, labs within acceptable ranges, tolerating by mouth meds and diet, voiding without difficulty, positive flatus, denies abdominal pain or calf pain, pain is controlled on oral pain medication and has no new complaints. Wound is benign, neurovascular status is intact, calf is soft and nontender, abdomen soft and nontender. Review of systems is negative for numbness, tingling, fever, chills, chest pain, shortness breath, nausea, vomiting, dizziness, headaches, slurred speech or other Current Visit: Yes Status: Acute Priority: Medium Procedures: Right TKA Patient Condition at Discharge: Good Plan - Discharge Summary Discharge Rx Participant: Yes New Discharge Prescriptions: New Aspirin 325 mg PO BID #60 tab Docusate [Colace] 100 mg PO BID #60 capsule HYDROcodone/APAP 10-325MG [[place] 10-325] 1 tab PO Q4HR PRN #42 tab PRN Reason: Pain No Action Atorvastatin [Lipitor] 10 mg PO QAM Olmesartan/Hydrochlorothiazide [Benicar Hct 20-12.5 mg Tablet] 1 tab PO QAM Febuxostat [Uloric] 40 mg PO DAILY PRN PRN Reason: GOUT Naproxen Sodium [Aleve] 220 mg PO DIRECTED PRN MDD 440 PRN Reason: Pain Nadolol [Corgard] 10 mg PO BID PRN PRN Reason: HEART RATE ABOVE 80 Multivitamins, Thera [Multivitamin (formulary)] 1 tab PO DAILY Doxepin [SINEquan] 25 mg PO HS PRN PRN Reason: Insomnia Vitamin B Complex 1 cap PO DAILY Tart [place] Tab With Turmeric 1 tab PO DAILY Ascorbic Acid [Vitamin C] 1,000 mg PO DAILY Discharge Medication List Atorvastatin [Lipitor] 10 mg PO QAM 07/28/15 [History] Olmesartan/Hydrochlorothiazide [Benicar Hct 20-12.5 mg Tablet] 1 tab PO QAM [History] Ascorbic Acid [Vitamin C] 1,000 mg PO DAILY 06/01/18 [History] Doxepin [SINEquan] 25 mg PO HS PRN 06/01/18 [History] Febuxostat [Uloric] 40 mg PO DAILY PRN 06/01/18 [History] Multivitamins, Thera [Multivitamin (formulary)] 1 tab PO DAILY 06/01/18 [History ] Nadolol [Corgard] 10 mg PO BID PRN 06/01/18 [History] Naproxen Sodium [Aleve] 220 mg PO DIRECTED PRN MDD 440 06/01/18 [History] Tart [place] Tab With Turmeric 1 tab PO DAILY 06/01/18 [History] Vitamin B Complex 1 cap PO DAILY 06/01/18 [History] Aspirin 325 mg PO BID #60 tab 06/07/18 [Rx] Docusate [Colace] 100 mg PO BID #60 capsule 06/07/18 [Rx] HYDROcodone/APAP 10-325MG [[place] 10-325] 1 tab PO Q4HR PRN #42 tab 06/07/18 [Rx] Follow up Appointment(s)/Referral(s): [facility] [NON-STAFF] - As Needed [facility], [NON-STAFF] - As Needed Carl Mcgee MD [STAFF PHYSICIAN] - 10 Days Activity/Diet/Wound Care/Special Instructions: Keep wound clean and dry Take meds as directed Follow-up with Dr. Mcgee in office Weight bear as tolerated May shower in 3 days if no bleeding Discharge Disposition: HOME WITH HOME HEALTH SERVICES
[2018-06-08 09:10] LABS: HCT 39.2 % (39.0-53.0); HGB 12.6 gm/dL (13.0-17.5); MCH 32.8 pg (25.0-35.0); MCHC 32.2 g/dL (31.0-37.0); MCV 101.6 fL (80.0-100.0); Macrocytosis Slight; Mean Platelet Volume 7.2; Platelet Count 165 k/uL (150-450); RBC 3.86 m/uL (4.30-5.90); RDW 13.3 % (11.5-15.5); WBC 10.5 k/uL (3.8-10.6)
[2018-06-08] MEDS: LOSARTAN 50 MG TAB PO SCH (09:10)
[2018-06-08] MEDS: MULTIVITAMINS, THERA 1 EACH TAB PO SCH (09:10)
[2018-06-08] MEDS: ATORVASTATIN 10 MG TAB PO SCH (09:10)
[2018-06-08] MEDS: ASPIRIN 325 MG TAB PO SCH (09:10)
[2018-06-08] MEDS: HYDROCHLOROTHIAZIDE 12.5 MG CAP PO SCH (09:10)
== END 2018-06-08 15:23 | disposition home health service (06) | DRG 470 ==
LOC: 2ORMAIN 12:24 → 4SSUR 17:02
PROVIDERS: ADMIT Orthopaedic Surgery Sports Medicine; ATTEND Orthopaedic Surgery Sports Medicine
PROC: 0SRC0J9 Replacement of Right Knee Joint with Synthetic Substitute, Cemented, Open Approach (ICD-10-PCS; principal; 2018-06-06 14:15)
DX: M17.11 Unilateral primary osteoarthritis, right knee (principal); I10 Essential (primary) hypertension; E78.5 Hyperlipidemia, unspecified; H91.90 Unspecified hearing loss, unspecified ear; M10.9 Gout, unspecified; H93.12 Tinnitus, left ear; G47.00 Insomnia, unspecified; Z79.1 Long term (current) use of non-steroidal anti-inflammatories (NSAID); Z79.899 Other long term (current) drug therapy; Z90.49 Acquired absence of other specified parts of digestive tract; Z87.09 Personal history of other diseases of the respiratory system; Z96.29 Presence of other otological and audiological implants; Z86.79 Personal history of other diseases of the circulatory system; Z87.891 Personal history of nicotine dependence; Z88.5 Allergy status to narcotic agent; Z82.49 Family history of ischemic heart disease and other diseases of the circulatory system; Z80.0 Family history of malignant neoplasm of digestive organs; Z80.52 Family history of malignant neoplasm of bladder; Z80.3 Family history of malignant neoplasm of breast
CPT/HCPCS: 85025; 85027; 88300

== ENCOUNTER → 2019-09-12 | Outpatient (CLI) | payer BC ==
--- NOTE | 2019-09-12 16:48 | US ---
EXAMINATION TYPE: US venous doppler duplex LE RT DATE OF EXAM: 09/12/2019 4:39 PM COMPARISON: NONE CLINICAL HISTORY: M25.561 pain in RT knee, M17.11 unilateral osteoar. SIDE PERFORMED: Right TECHNIQUE: The lower extremity deep venous system is examined utilizing real time linear array sonog catherine with graded compression, doppler sonography and color-flow sonography. VESSELS IMAGED: External Iliac Vein (EIV) Common Femoral Vein Deep Femoral Vein Greater Saphenous Vein * Femoral Vein Popliteal Vein Small Saphenous Vein * Proximal Calf Veins (* superficial vessels) Grayscale, color doppler, spectral doppler imaging performed of the deep veins of the right lower ext remity. There is normal flow, compressibility, vascular waveforms. Right Leg: Negative for DVT IMPRESSION: No sonographic evidence of deep venous thrombosis within the right lower extremity.
== END | disposition home or self-care (01) ==
LOC: RADUSWWP 13:40
PROVIDERS: ATTEND Orthopaedic Surgery Sports Medicine
DX: M25.561 Pain in right knee (principal); I10 Essential (primary) hypertension; E78.5 Hyperlipidemia, unspecified; Z87.891 Personal history of nicotine dependence; Z96.651 Presence of right artificial knee joint; Z09 Encounter for follow-up examination after completed treatment for conditions other than malignant neoplasm

== ENCOUNTER 2020-06-14 18:16 | Inpatient (IN) | payer BC, MEDICARE ==
[2020-06-14] MEDS ORDERED: NITROGLYCERIN SL TABS 0.4 MG TAB SUBLINGUAL STA (18:46)
[2020-06-14] MEDS ORDERED: ASPIRIN 81 MG PO STA (18:46)
[2020-06-14 19:01] LABS: Basophils % (A) 0 %; Eosinophils # (A) 0.4 k/uL (0-0.7); Eosinophils % (A) 5 %; HCT 41.4 % (39.0-53.0); HGB 14.3 gm/dL (13.0-17.5); Lymphocytes # (A) 1.2 k/uL (1.0-4.8); Lymphocytes % (A) 16 %; MCH 32.8 pg (25.0-35.0); MCHC 34.4 g/dL (31.0-37.0); MCV 95.3 fL (80.0-100.0); Mean Platelet Volume 7.6; Monocytes # (A) 0.8 k/uL (0-1.0); Monocytes % (A) 11 %; Neutrophils # (A) 4.8 k/uL (1.3-7.7); Neutrophils % (A) 65 %; Platelet Count 180 k/uL (150-450); RBC 4.35 m/uL (4.30-5.90); RDW 14.5 % (11.5-15.5); WBC 7.3 k/uL (3.8-10.6)
--- NOTE | 2020-06-14 19:13 | XR ---
EXAMINATION TYPE: XR chest 2V DATE OF EXAM: 06/14/2020 COMPARISON: 01/02/2020 HISTORY: Chest pain TECHNIQUE: 2 views FINDINGS: There is no heart failure nor confluent pneumonic infiltrate. Costophrenic angles are clear . Thoracic spine is intact. There are chest leads. Heart size is normal. IMPRESSION: No active cardiopulmonary disease. No change.
[2020-06-14 19:18] LABS: Calcium 9.6 mg/dL (8.4-10.2); Magnesium 1.9 mg/dL (1.6-2.3); Potassium 3.9 mmol/L (3.5-5.1); Total Bilirubin 0.7 mg/dL (0.2-1.3); Total Protein 6.6 g/dL (6.3-8.2)
[2020-06-14] MEDS ORDERED: hydrALAZINE HCL 20 MG/ML 1 ML VIAL IVP STA (20:09)
--- NOTE | 2020-06-14 20:13 | ED ---
Chest Pain HPI - General Chief Complaint: Chest Pain Stated Complaint: Chest pain Time Seen by Provider: 06/14/20 18:22 Source: patient Mode of arrival: wheelchair Limitations: no limitations - History of Present Illness Initial Comments: Is a 65-year-old male with a history of CAD, hyperlipidemia, hypertension who presents emergency department for chest pain, shortness of breath, and high blood pressure at home. The patient states that he had an episode of chest pain and shortness of breath yesterday. He was recently diagnosed with an asthma exacerbation and he decided use an inhaler which seemed to improve his symptoms and he went out to dinner. He states he felt fine until this afternoon when he developed some chest pain and shortness of breath again. He states that he had some chest pressure on the center of his chest which did radiate to bilateral shoulders at times. He states that it did not radiate into his back or neck. He had some dyspnea on exertion at times well. Patient denies any pleuritic chest pain. No recent travel or surgeries. He states that he does have a history of CAD and has 3 stents that were placed in December 2019. He is currently on Prasugrel. Patient denies any history of PE or DVT. No lower extremity swelling or pain. No other acute complaints. Patient currently states that he has no pain. - Related Data Home Medications Medication Instructions Recorded Confirmed Ascorbic Acid [Vitamin C] 1,000 mg PO MOWEFR 06/01/18 01/02/20 Tart [place] Tab With Turmeric 1 tab PO DAILY 06/01/18 01/02/20 Aspirin EC [Ecotrin Low Dose] 81 mg PO DAILY 01/02/20 01/02/20 Gabapentin [Neurontin] 300 mg PO HS 01/02/20 01/02/20 Saw Brandon 160 mg PO DAILY 01/02/20 01/02/20 Albuterol Inhaler [Ventolin Hfa 2 puff INHALATION RT-Q6H PRN 06/14/20 06/14/20 Inhaler] Loratadine 10 mg PO DAILY 06/14/20 06/14/20 carvediloL [Coreg] 6.25 mg PO AC-BID 06/14/20 06/14/20 Previous Rx's Medication Instructions Recorded Atorvastatin [Lipitor] 40 mg PO HS #90 tab 01/04/20 Prasugrel [Effient] 10 mg PO DAILY #90 tab 01/04/20 Allergies Allergy/AdvReac Type Severity Reaction Status Date / Time propoxyphene napsylate Allergy Rash/Hives Verified 06/14/20 20:15 [From Darvocet-N] adhesive tape AdvReac Unknown red , Verified 06/14/20 20:15 irritated skin cephalexin [From Keflex] AdvReac Rash/Hives Verified 06/14/20 20:15 Rooster Comb Injection Allergy Unknown Rash/Hives Uncoded 06/14/20 20:15 Review of Systems ROS Statement: Those systems with pertinent positive or pertinent negative responses have been documented in the HPI. ROS Other: All systems not noted in ROS Statement are negative. EKG Findings - EKG Comments: EKG Findings:: EKG showing normal sinus rhythm with a rate of 75. There is no abnormal ST 7 changes or T-wave inversions. QTC is 437. Other Intervals normal. No ectopy.. Past Medical History Past Medical History: Hyperlipidemia, Hypertension Additional Past Medical History / Comment(s): neuropathy, Gout, Hx of AVNRT with ablation History of Any Multi-Drug Resistant Organisms: None Reported Past Surgical History: Cholecystectomy, Ear Surgery, Orthopedic Surgery Additional Past Surgical History / Comment(s): Knee x3. Mass on chest wall. Nasal surg. LEFT TYMPANOPLASTY. Past Anesthesia/Blood Transfusion Reactions: No Reported Reaction Past Psychological History: No Psychological Hx Reported Smoking Status: Former smoker Past Alcohol Use History: Occasional Past Drug Use History: None Reported - Past Family History Father Family Medical History: Cancer Additional Family Medical History / Comment(s): PANCREATIC CANCER Brother(s) Family Medical History: Cancer Additional Family Medical History / Comment(s): BLADDER CANCER Sister(s) Family Medical History: Cancer Additional Family Medical History / Comment(s): BREAST CANCER Mother Family Medical History: Congestive Heart Failure (CHF), Osteoarthritis (OA) Additional Family Medical History / Comment(s): Mother had internal bleeding, g out. General Exam - General Exam Comments Initial Comments: Constitutional: [Awake alert] [Appears comfortable] Head: [Normocephalic atraumatic] Eyes: [no conjunctival injection] [No scleral icterus] [EOMI] Neck: [No JVD] [Supple] Heart: [Regular rate rhythm] [normal S1-S2] [no murmurs] Lungs: [Clear to auscultation bilaterally] [No wheezing] [No rales] Abdomen: [Soft] [nondistended] [nontender] Extremities: [Non edematous] [DP pulses intact] [Radial pulses intact] Neuro: [A&Ox3] [No focal neurologic deficits] Psych: [Appropriate mood and affect] Limitations: no limitations Course Vital Signs 06/14/20 06/14/20 06/14/20 18:18 19:07 19:13 Temperature 98.3 F Pulse Rate 78 73 85 Respiratory 20 18 20 Rate Blood Pressure 233/102 199/91 176/103 O2 Sat by Pulse 98 99 97 Oximetry 06/14/20 19:55 Temperature Pulse Rate 72 Respiratory 18 Rate Blood Pressure 192/99 O2 Sat by Pulse Oximetry Chest Pain MDM - MDM Is a 65-year-old male who presents emergency department for chest pain. By the time the patient arrived emergency department. His chest pain had improved. He was quite hypertensive on arrival she was given nitroglycerin which did briefly improve his blood pressure however then it went back up. The patient was then given 10 mg of hydralazine. Otherwise the patient's vital signs were stable. The patient is currently on Prasugrel for his recent stents in December 2019. EKG was unremarkable however troponin was elevated. Chest x-ray did not reveal any acute process. I spoke with Dr. Medeiros about the patient's symptoms and findings and he agreed for admission to the hospital. We'll hold on heparin at this time due to hypertension and the patient are to being on Prasugrel. Further orders per Dr. Medeiros. Disposition Clinical Impression: Chest pain, Troponin level elevated Disposition: ADMITTED IP TO THIS HOSP Condition: Stable Referrals: Britany Tovar, CORTEZ [Primary Care Provider] - 1-2 days
[2020-06-14] MEDS ORDERED: NALOXONE 0.4 MG/ML 1 ML VIAL IV PRN (20:29)
[2020-06-14] MEDS ORDERED: cloNIDine HCL 0.2 MG TAB PO PRN (20:29)
[2020-06-14] MEDS: carvediloL 6.25 MG TAB PO SCH (21:06)
[2020-06-14] MEDS: GABAPENTIN 300 MG CAP PO SCH (21:06)
[2020-06-14] MEDS: ATORVASTATIN 40 MG TAB PO SCH (21:06)
[2020-06-14] MEDS ORDERED: IPRATROPIUM-ALBUTEROL 3 ML NEB INHALATION STA (21:50)
--- NOTE | 2020-06-14 22:58 | P.HPIM ---
History of Present Illness H&P Date: 06/14/20 Chief Complaint: chest pain 65 year old male with hypertension , hyperlipidemia , intermittent astham, and CAD He comes in today for sudden onset chest discomfort. He claims to have been at his baseline status of health, he had a heart attack back in December 2019 for which 2 or 3 stents were deployed, then had COVID infection in April, then about 2 weeks ago he did have some URI symptoms that since has resolved. He was doing fine last night as he went to dinner, and woke up feeling fine , up until this evening around 5 PM, whne he experienced sudden chest discomfort radiating to both arms, denies any back pain, palpitation, diaphoresis, nausea or vomiting. he experienced chest pain dull vague in nature, 7/10 in severity with some difficulty breathing. he says, the symptoms feels similar to asthma exacerbation , he tried to use his inhalers, but with very slight improvement , and eventually decided to come in for evaluation he uses inhalers as needed , normally less than once a week if any. no home oxygen he feels fine right now, pain has resolved since he has arrived to the ED, however, he was found to have elevated blood pressure, EKG unremarkable , and blood work unremarkable , troponins were negative. CXR unremarkable chest pain started suddenly, while resting doing nothing Review of Systems Pertinent positives as noted in HPI. All other systems were reviewed and are negative Past Medical History Past Medical History: Hyperlipidemia, Hypertension Additional Past Medical History / Comment(s): neuropathy, Gout, Hx of AVNRT with ablation History of Any Multi-Drug Resistant Organisms: None Reported Past Surgical History: Cholecystectomy, Ear Surgery, Orthopedic Surgery Additional Past Surgical History / Comment(s): Knee x3. Mass on chest wall. Nasal surg. LEFT TYMPANOPLASTY. Past Anesthesia/Blood Transfusion Reactions: No Reported Reaction Past Psychological History: No Psychological Hx Reported Smoking Status: Former smoker Past Alcohol Use History: Occasional Past Drug Use History: None Reported - Past Family History Father Family Medical History: Cancer Additional Family Medical History / Comment(s): PANCREATIC CANCER Brother(s) Family Medical History: Cancer Additional Family Medical History / Comment(s): BLADDER CANCER Sister(s) Family Medical History: Cancer Additional Family Medical History / Comment(s): BREAST CANCER Mother Family Medical History: Congestive Heart Failure (CHF), Osteoarthritis (OA) Additional Family Medical History / Comment(s): Mother had internal bleeding, gout. Medications and Allergies Home Medications Medication Instructions Recorded Confirmed Type Ascorbic Acid [Vitamin C] 1,000 mg PO MOWEFR 06/01/18 06/14/20 History Tart [place] Tab With Turmeric 1 tab PO DAILY 06/01/18 06/14/20 History Aspirin EC [Ecotrin Low Dose] 81 mg PO DAILY 01/02/20 06/14/20 History Gabapentin [Neurontin] 300 mg PO HS 01/02/20 06/14/20 History Saw [place] 160 mg PO DAILY 01/02/20 06/14/20 History Atorvastatin [Lipitor] 40 mg PO HS #90 tab 01/04/20 06/14/20 Rx Prasugrel [Effient] 10 mg PO DAILY #90 tab 01/04/20 06/14/20 Rx Albuterol Inhaler [Ventolin Hfa 2 puff INHALATION RT-Q6H PRN 06/14/20 06/14/20 History Inhaler] Loratadine 10 mg PO DAILY 06/14/20 06/14/20 History carvediloL [Coreg] 6.25 mg PO AC-BID 06/14/20 06/14/20 History Allergies Allergy/AdvReac Type Severity Reaction Status Date / Time propoxyphene napsylate Allergy Rash/Hives Verified 06/14/20 20:15 [From Darvocet-N] adhesive tape AdvReac Unknown red , Verified 06/14/20 20:15 irritated skin cephalexin [From Keflex] AdvReac Rash/Hives Verified 06/14/20 20:15 Rooster Comb Injection Allergy Unknown Rash/Hives Uncoded 06/14/20 20:15 Physical Exam Vitals: Vital Signs Temp Pulse Resp BP Pulse Ox 06/14/20 19:55 72 18 192/99 06/14/20 19:13 85 20 176/103 97 06/14/20 19:07 73 18 199/91 99 06/14/20 18:18 98.3 F 78 20 233/102 98 Intake and Output 06/14/20 06/14/20 06/14/20 06:59 14:59 22:59 Other: Weight 111.13 kg Constitutional: No acute distress, conversant, pleasant Eyes: Anicteric sclerae, moist conjunctiva, Pupils equal round reactive to light ENMT: NC/AT Oropharynx clear, no erythema, or exudates Neck: Supple, FROM, no masses, or JVD No carotid bruits No thyromegaly Lungs: decrease breath sounds, with prolonged expiratory phase and end expiratory wheezing Clear to percussion Normal respiratory effort, no accessory muscle use Cardiovascular: Heart regular in rate and rhythm, No murmurs, gallops, or rubs No peripheral edema Abdominal: Soft Nontender, no guarding, rebound or rigidity Abdomen moving with respiration Normoactive bowel sounds No hepatomegaly, No splenomegaly No palpable mass No abdominal wall hernia noted Skin: Normal temperature, tone, texture, turgor No induration No subcutaneous nodules No rash, lesions No ulcers Extremities: No digital cyanosis No clubbing Pedal pulses intact and symmetrical Radial pulses intact and symmetrical No calf tenderness Psychiatric: Alert and oriented to person, place and time Appropriate affect fair judgement Neuro Muscles Strength 5/5 in all 4 extremities Sensation to light touch grossly present throughout Cranial nerves II-XII grossly intact No focal sensory deficits Lymphatics: no palpable cervical or supraclavicular , or inguinal lymph nodes Results CBC & Chem 7: 06/14/20 18:47 06/14/20 18:47 Labs: Abnormal Lab Results - Last 24 Hours (Table) 06/14/20 06/14/20 Range/Units 18:47 18:47 BUN 21 H (9-20) mg/dL Glucose 115 H (74-99) mg/dL Troponin I 0.114 H* (0.000-0.034) ng/mL Assessment and Plan Assessment: atypical chest pain , with elevated troponins , rule out NSTEMI malignant hypertension history of CAD intermittent asthma hyperlipidemia plan supplemental oxygen as needed resume home meds heparin drip not started due to elevated blood pressure resume prasugrel aspirin , ststin clonidine PRN for systolic blood pressure >180 trend [facility] consult duoneb PRN CODE STATUS:full code DVT prophylaxis: mechanical Discussed with: Patient, ER, RN Anticipated length of stay < than [address]: home A total of 75 minutes was spent on the care of this complex patient more than 50% of the time was spent in counseling and care coordination.
[2020-06-15] MEDS: carvediloL 6.25 MG TAB PO SCH ×2 (06:36→17:14)
[2020-06-15] MEDS: PRASUGREL 10 MG TAB PO SCH (09:41)
[2020-06-15] MEDS: ASPIRIN 81 MG PO SCH (09:41)
[2020-06-15] MEDS ORDERED: ALPRAZolam 0.5 MG TAB PO PRN (11:04)
[2020-06-15] MEDS ORDERED: ATORVASTATIN 80 MG TAB PO STA (11:04)
[2020-06-15] MEDS ORDERED: SODIUM CHLORIDE 0.9% 1,000 ML in EMPTY BAG 1 BAG IV ONE (11:04)
[2020-06-15] MEDS ORDERED: ASPIRIN 325 MG TAB PO STA (11:04)
[2020-06-15] MEDS ORDERED: NITROGLYCERIN SL TABS 0.4 MG TAB SUBLINGUAL PRN (11:04)
[2020-06-15] MEDS ORDERED: ALPRAZolam 0.25 MG TAB PO PRN (11:04)
[2020-06-15] MEDS: IPRATROPIUM-ALBUTEROL 3 ML NEB INHALATION PRN ×3 (11:09→21:34)
--- NOTE | 2020-06-15 11:10 | P.PN ---
Subjective Progress Note Date: 06/15/20 Pain has completely resolved, but patient reports feeling of generalized weakness. Objective - Vital Signs Vital signs: Vital Signs Temp 97.7 F 06/15/20 08:00 Pulse 55 L 06/15/20 08:00 Resp 20 06/15/20 08:00 BP 145/69 06/15/20 08:00 Pulse Ox 98 06/15/20 08:00 Intake & Output 06/14/20 06/15/20 06/15/20 18:59 06:59 18:59 Weight 111.13 kg 111 kg Other: # Voids 1 - Exam Gen: awake, alert HEENT: normocephalic, atraumatic, good hearing acuity, moist mucous membranes Resp: good air exchange, breathing comfortably with no accessory muscle use, clear to auscultation bilaterally on inspiration with mild end expiratory wheezes CVS: good distal perfusion x 4, regular rate and rhythm without murmurs GI: soft, NTTP, ND : no SPT, no CVAT, smallwood catheter not present MSK: no pitting edema, no clubbing Neuro: non-focal, moving all extremities Psych: cooperative, euthymic mood - Labs CBC & Chem 7: 06/14/20 18:47 06/14/20 18:47 Labs: Abnormal Lab Results - Last 24 Hours (Table) 06/14/20 06/14/20 06/14/20 Range/Units 18:47 18:47 22:29 BUN 21 H (9-20) mg/dL Glucose 115 H (74-99) mg/dL Troponin I 0.114 H* 0.095 H* (0.000-0.034) ng/mL 06/15/20 Range/Units 09:56 BUN (9-20) mg/dL Glucose (74-99) mg/dL Troponin I 0.081 H* (0.000-0.034) ng/mL Assessment and Plan Assessment: 1. Atypical chest pain , with elevated troponins , rule out NSTEMI 2. Hypertensive Urgency 3. history of CAD 4. Mild intermittent asthma 5. hyperlipidemia 65-year-old man with a medical history of CAD, hyperlipidemia, hypertension, asthma presented with atypical chest pain with radiation to the arms bilaterally, noted to have high blood pressure at home to greater than 200, admitted for ACS rule out and blood pressure management. Plan: resume home meds heparin ip not started due to elevated blood pressure resume prasugrel aspirin , statin hydralazine PRN for systolic blood pressure >160 [facility] consult oxygen, duoneb PRN - echo pending CODE STATUS:full code DVT prophylaxis: mechanical Discussed with: Patient, ER, RN Anticipated length of stay < than [address]: home
--- NOTE | 2020-06-15 11:41 | CONS ---
CONSULTATION CHIEF COMPLAINT: Chest pain. HISTORY OF PRESENT ILLNESS: Aiden is a 65-year-old gentleman with history of coronary artery disease, status post angioplasty of an OM branch in December of last year, hypertension and asthma. He comes to hospital with recurrent episodes of shortness of breath, chest pain and elevated blood pressures. He has had several of these episodes since April. It starts out as episodes of [id number] shortness of breath. Subsequently, he has precordial chest tightness and then he notices that his blood pressure is up. He had another of those episodes yesterday. He comes into hospital and is admitted to hospital. EKG does not reveal acute ischemic EKG changes, but his troponins are elevated at 0.1, 0.09 and 0.08. The patient had been tested for coronavirus. It is negative. He suffered from COVID infection in April. Given his chest tightness, shortness of breath, elevated troponins, and known coronary artery disease, I am advising the patient to undergo cardiac catheterization. He was explained of risks, benefits and alternatives, understood and accepted. Dr. Cisneros who did his previous cath and angioplasty will perform the catheterization on him. PAST MEDICAL HISTORY: Significant for coronary artery disease, status post prior angioplasty, dyslipidemia, asthma. MEDICATIONS: Medications include Coreg 6.25 b.i.d., Effient 10 mg daily, Neurontin 300 daily, Lipitor 40 daily, aspirin, ascorbic acid, Ventolin. ALLERGIES: The patient is allergic to DARVOCET, KEFLEX, and ADHESIVE TAPE. FAMILY HISTORY: Negative for premature coronary artery disease. SOCIAL HISTORY: Negative for current smoking, EtOH abuse, or drug abuse. REVIEW OF SYSTEMS: HEENT is unremarkable. CARDIAC: As described above. RESPIRATORY: As described above. GI: Negative. GENITOURINARY: Negative. ALLERGY/IMMUNOLOGY: Negative. SKIN: Negative. MUSCULOSKELETAL: Significant for arthritis. PSYCHOSOCIAL: Negative. ENDOCRINE: Negative. DERM: Negative. CONSTITUTIONAL: Negative. ONCOLOGICAL: Negative. CYBER SECURITY ARCHITECT: Negative. Rest of the system review is not relevant. PHYSICAL EXAMINATION: On exam, afebrile. Heart rate is 55 beats per minute. Blood pressure is 145/69, respiratory rate is 18, O2 saturation is 98% on 2 L. There is no jugular venous distention. Chest exam reveals bilateral mild rhonchi. Heart exam reveals first and second heart sounds. No gallop. No murmur. No rub. Abdomen is soft, nontender. Examination of extremities did not reveal any edema. Peripheral pulses are felt CYBER SECURITY ARCHITECT exam did not reveal focal neurological deficits. LABS: Labs show a hemoglobin of 14.3, platelet count is 180. Potassium is 3.9. Creatinine is 1. Troponins were 0.1, 0.09 and 0.08. EKG did not reveal acute ischemic changes. ASSESSMENT: 1. Acute non ST-segment elevation myocardial infarction. 2. Dyslipidemia. 3. Hypertension. 4. Recent COVID infection. 5. Asthma. PLAN: Patient will undergo cardiac catheterization today and will decide on further course of action. I will obtain a 2D echo to assess his LV function and wall motion. LAVONNE / CHAVAN: [id number] /
[2020-06-15] MEDS ORDERED: IV FLUID CONTINUATION 1,000 ML IV ONE (11:50)
[2020-06-15] MEDS ORDERED: fentaNYL (PF) 50 MCG/ML 2 ML AMP IV ONE (12:14)
[2020-06-15] MEDS ORDERED: LIDOCAINE 1% INJ 10MG/ML (20 ML MDV) SQ ONE (12:16)
[2020-06-15] MEDS ORDERED: VERAPAMIL SYRINGE (5 MG/10 ML) INTRAARTER ONE (12:17)
[2020-06-15] MEDS ORDERED: MIDAZOLAM 2 MG/2 ML VIAL IV ONE (12:21)
[2020-06-15] MEDS ORDERED: HEPARIN SODIUM 1,000 UN/ML (10ML VL) IV ONE (12:21)
[2020-06-15] MEDS ORDERED: IOPAMIDOL-370 125ML BTL INJ ONE (12:31)
[2020-06-15] MEDS ORDERED: RX INFO: IV CONTRAST WAS GIVEN 1 EACH MISC MISCELLANE PRN (12:44)
[2020-06-15] MEDS ORDERED: SODIUM CHLORIDE 0.9% 1,000 ML IV SCH (12:45)
[2020-06-15] MEDS: ISOSORBIDE MONONITRATE ER 30 MG TAB.ER.24H PO SCH (13:29)
--- NOTE | 2020-06-15 13:47 | CC ---
CARDIAC CATHETERIZATION REPORT Mr. Luacs is a 65-year-old male with known history of coronary artery disease status post stenting of the left circumflex and the right coronary artery in December of 2019, who presented with symptoms of chest discomfort with dyspnea and mild troponin elevation with no EKG changes. In view of that and after evaluation by Dr. Hernandez, recommendation was made regarding cardiac catheterization. The procedure as well as the risks and the complications were discussed with the patient who is in full understanding and agreement. PROCEDURE: Patient was brought to catheterization laboratory technician in a fasting semi-sedated state after receiving fentanyl and Benadryl and achieving moderate conscious sedated state. Using Xylocaine anesthesia and Seldinger technique a 6-Czech sheath was introduced in the right radial artery. Selective right and left coronary angiography performed using 5-Czech 3.5 bend right and left Xander catheter. Multiple views of the coronary artery including hemiaxial views were obtained. Following that, 5-Czech tight pigtail catheter was introduced in the left ventricle and pressures were calculated. Following that, catheter and sheath were removed. Hemostasis was obtained with deployment of a TR band. There was no immediate complication. Patient was returned to his room in stable condition. Of note, the patient received 5000 units of intravenous heparin as well as intra-arterial verapamil. FINDINGS: LEFT MAIN: This is a short size vessel, bifurcating into left circumflex and left anterior descending artery. Left main artery has no evidence of high-grade stenosis. LEFT ANTERIOR DESCENDING ARTERY: This is a large-sized vessel reaching to the apex with a wraparound apex segment. The left anterior descending artery gives rise to a diagonal branch of moderate caliber in mid segment. The left anterior descending artery has diffuse intimal disease throughout its course of 20% to 30% without any evidence of high-grade stenosis. LEFT CIRCUMFLEX: This is a large nondominant vessel giving rise to 2 obtuse marginal branches. The stented segment of the left circumflex is patent involving the second obtuse marginal branch and has no evidence of significant in-stent restenosis. The takeoff of the first obtuse marginal branch has 40% to 50% plaque that was noted in December of last year. RIGHT CORONARY ARTERY: This is a large dominant vessel bifurcating into PDA and posterolateral segment and branches. The right coronary artery proximally has 20% to 30% plaque. The stented segment in the mid right coronary artery is patent with no evidence of in-stent restenosis. LEFT VENTRICULOGRAM: Left ventriculogram was not performed. HEMODYNAMICS: There was no gradient across the aortic valve. The left ventricular end-diastolic pressure was 14 to 16 mmHg. CONCLUSION: 1. Patent stent in the left circumflex and the right coronary artery. 2. Moderate disease in the first obtuse marginal branch with no significant progression of disease compared to December 2019. 3. Mild to moderate disease in the LAD in diffuse pattern. RECOMMENDATION: In view of finding anatomy, I recommend continue medical therapy with aggressive coronary risk modifications that has been initiated. Those findings were discussed with the patient and his family who are in full understanding and agreement. It is possible that the patient had a ruptured plaque that caused the mild troponin elevation but I see no evidence of high-grade stenosis at this time. Duration of the procedure is 17 minutes. MMODL / IJN: [id number] /
[2020-06-15] MEDS: ATORVASTATIN 40 MG TAB PO SCH (19:54)
[2020-06-15] MEDS: lisinopriL 5 MG TAB PO SCH (19:54)
[2020-06-15] MEDS: GABAPENTIN 300 MG CAP PO SCH (19:54)
[2020-06-16] MEDS: carvediloL 6.25 MG TAB PO SCH (06:29)
[2020-06-16] MEDS ORDERED: HEPARIN SODIUM,PORCINE 2,500 UNIT in SODIUM CHLORIDE 0.9% 250 ML IRRIGATION PRN (07:00)
[2020-06-16] MEDS ORDERED: HEPARIN SODIUM,PORCINE 10,000 UNIT in SODIUM CHLORIDE 0.9% 1,000 ML IRRIGATION PRN (07:00)
--- NOTE | 2020-06-16 07:35 | ECHOF ---
Referral Reason:LV function MEASUREMENTS -------- HEIGHT: 180.3 cm WEIGHT: 110.7 kg BP: 145/69 RVIDd: 3.4 cm (< 3.3) IVSd: 2.1 cm (0.6 - 1.1) LVIDd: 3.3 cm (3.9 - 5.3) LVPWd: 1.7 cm (0.6 - 1.1) IVSs: 2.1 cm LVIDs: 2.4 cm LVPWs: 2.0 cm LAESV Index (A-L): 22.67 ml/m Ao Diam: 3.4 cm (2.0 - 3.7) AV Cusp: 2.1 cm (1.5 - 2.6) LA Diam: 3.4 cm (2.7 - 3.8) MV EXCURSION: 22.054 mm (> 18.000) MV EF SLOPE: 13 mm/s (70 - 150) EPSS: 0.2 cm MV E Charanjit: 0.61 m/s MV DecT: 292 ms MV A Charanjit: 0.86 m/s MV E/A Ratio: 0.71 AR PHT: 609 ms RAP: 5.00 mmHg RVSP: 24.90 mmHg FINDINGS -------- Sinus rhythm. This was a technically difficult study with suboptimal views. The left ventricular size is normal. There is severe concentric left ventricular hypertrophy. Ove rall left ventricular systolic function is normal with, an EF between 55 - 60 %. The right ventricle is mildly enlarged. Normal LA size by volume 22+/-6 ml/m2. The right atrium was not well visualized. 5.0mg of Lumason was utilized for enhancement of images Interatrial and interventricular septum intact. The aortic valve is trileaflet and appears structurally normal. There is mild aortic regurgitation. There is no evidence of aortic stenosis. The mitral valve is normal. Mild mitral regurgitation is present. The tricuspid valve appears structurally normal. Mild tricuspid regurgitation present. There is n o evidence of pulmonary hypertension. The right ventricular systolic pressure, as measured by Doppl er, is 24.90mmHg. Trace/mild (physiologic) pulmonic regurgitation. The aortic root size is normal. IVC Not well visulized. There is no pericardial effusion. CONCLUSIONS -------- 1. This was a technically difficult study with suboptimal views. 2. There is severe concentric left ventricular hypertrophy. 3. Overall left ventricular systolic function is normal with, an EF between 55 - 60 %. 4. Normal LA size by volume 22+/-6 ml/m2. 5. There is mild aortic regurgitation. 6. Mild mitral regurgitation is present. 7. Mild tricuspid regurgitation present. 8. Trace/mild (physiologic) pulmonic regurgitation. FOOD SERVICE EMPLOYEE: Brisa Benoit RDCS
[2020-06-16 07:59] LABS: African American GFR (CKD) >90 (>60 ml/min/1.73 sqM); Anion Gap 7 mmol/L; Blood Urea Nitrogen 17 mg/dL (9-20); Calcium 9.4 mg/dL (8.4-10.2); Carbon Dioxide 24 mmol/L (22-30); Chloride 107 mmol/L (98-107); Glucose 105 mg/dL (74-99); Non-African American GFR(CKD) 81 (>60 ml/min/1.73 sqM); Potassium 4.3 mmol/L (3.5-5.1); Sodium 138 mmol/L (137-145)
[2020-06-16 08:02] VITALS: BP 178/74; RESP 16; TEMP 97.1
[2020-06-16] MEDS: IPRATROPIUM-ALBUTEROL 3 ML NEB INHALATION PRN (08:32)
[2020-06-16 08:47] VITALS: PULSE 70
[2020-06-16] MEDS: lisinopriL 5 MG TAB PO SCH (10:13)
[2020-06-16] MEDS: ISOSORBIDE MONONITRATE ER 30 MG TAB.ER.24H PO SCH (10:13)
[2020-06-16] MEDS: ASPIRIN 81 MG PO SCH (10:13)
[2020-06-16] MEDS: PRASUGREL 10 MG TAB PO SCH (10:14)
--- NOTE | 2020-06-16 10:51 | PN ---
PROGRESS NOTE Aiden is a 65-year-old gentleman who was admitted to hospital with unstable angina and underwent cardiac catheterization. His catheterization showed patent stent within the circumflex coronary artery and right coronary artery with mild to moderate disease involving LAD. He is doing well and is free of symptoms today. PHYSICAL EXAMINATION: On exam, patient is afebrile. Heart rate is 70 beats per minute. Blood pressure is 124/48. Respiratory rate is 18. Chest exam reveals good air entry bilaterally. Heart exam reveals first and second heart sounds. No gallop. No murmur. Right radial artery access site appears normal. Abdomen is soft. Examination of extremities did not reveal any edema. Peripheral pulses are felt. Patient is currently on aspirin, Lipitor, Coreg, Zestril, Imdur and Effient. ASSESSMENT: Coronary artery disease with recurrent episodes of chest pain either due to vasospasm or due to small vessel disease. The patient has been started on nitrates, stable for discharge. Followup with Dr. Dugan. MMODL / IJN: [id number] /
--- NOTE | 2020-06-16 13:20 | P.DS ---
Providers Date of admission: 06/16/20 08:14 Expected date of discharge: 06/16/20 Attending physician: Yulissa Graves MD Consults: 06/15/20 09:48 Consult Physician Routine Consulting Provider: Nikos Hernandez Consult Reason/Comments: elevated trop. Do you want consulting provider notified?: Already Contacted Primary care physician: CORTEZ Francis Hospital Course: 1. Atypical chest pain , with elevated troponins , rule out NSTEMI 2. Hypertensive Urgency 3. history of CAD 4. Mild intermittent asthma 5. hyperlipidemia 65-year-old man with a medical history of CAD, hyperlipidemia, hypertension, asthma presented with atypical chest pain with radiation to the arms bilaterally, noted to have high blood pressure at home to greater than 200, admitted for ACS rule out and blood pressure management. Patient was seen by cardiology who took patient to laboratory animal caretaker, which demonstrated patent arteries. He was started on imdur and lisinopril for better BP control. All other medications were continued. He was discharged home with instructions to follow up with PCP and cardiology. Assessment: Gen: awake, alert HEENT: normocephalic, atraumatic, good hearing acuity, moist mucous membranes Resp: good air exchange, breathing comfortably with no accessory muscle use, clear to auscultation bilaterally on inspiration with mild end expiratory wheezes CVS: good distal perfusion x 4, regular rate and rhythm without murmurs GI: soft, NTTP, ND : no SPT, no CVAT, smallwood catheter not present MSK: no pitting edema, no clubbing Neuro: non-focal, moving all extremities Psych: cooperative, euthymic mood Patient Condition at Discharge: Good Plan - Discharge Summary Discharge Rx Participant: No New Discharge Prescriptions: New Isosorbide Mononitrate ER [Imdur] 30 mg PO DAILY #90 tab.er.24h lisinopriL [Zestril] 5 mg PO BID #180 tab Continue Tart [place] Tab With Turmeric 1 tab PO DAILY Ascorbic Acid [Vitamin C] 1,000 mg PO MOWEFR Saw [place] 160 mg PO DAILY Aspirin EC [Ecotrin Low Dose] 81 mg PO DAILY Gabapentin [Neurontin] 300 mg PO HS Atorvastatin [Lipitor] 40 mg PO HS #90 tab Prasugrel [Effient] 10 mg PO DAILY #90 tab carvediloL [Coreg] 6.25 mg PO AC-BID Loratadine 10 mg PO DAILY Albuterol Inhaler [Ventolin Hfa Inhaler] 2 puff INHALATION RT-Q6H PRN #1 inhaler PRN Reason: Shortness Of Breath Discharge Medication List Ascorbic Acid [Vitamin C] 1,000 mg PO MOWEFR 06/01/18 [History] Tart [place] Tab With Turmeric 1 tab PO DAILY 06/01/18 [History] Aspirin EC [Ecotrin Low Dose] 81 mg PO DAILY 01/02/20 [History] Gabapentin [Neurontin] 300 mg PO HS 01/02/20 [History] Saw [place] 160 mg PO DAILY 01/02/20 [History] Atorvastatin [Lipitor] 40 mg PO HS #90 tab 01/04/20 [Rx] Prasugrel [Effient] 10 mg PO DAILY #90 tab 01/04/20 [Rx] Loratadine 10 mg PO DAILY 06/14/20 [History] carvediloL [Coreg] 6.25 mg PO AC-BID 06/14/20 [History] Albuterol Inhaler [Ventolin Hfa Inhaler] 2 puff INHALATION RT-Q6H PRN #1 inhaler 06/16/20 [Rx] Isosorbide Mononitrate ER [Imdur] 30 mg PO DAILY #90 tab.er.24h 06/16/20 [Rx] lisinopriL [Zestril] 5 mg PO BID #180 tab 06/16/20 [Rx] Follow up Appointment(s)/Referral(s): Berny Dugan MD [STAFF PHYSICIAN] - 1 Week (Voicemail left with nurse that schedules appointments. She will call you. ) Britany Tovar NPC [Primary Care Provider] - 1-2 days (Changed Primary. ) Laura Obrien MD [STAFF PHYSICIAN] - 06/24/20 11:20 am (Paperwork for appointment will be sent in the mail, please fill out prior, if you do not get it in the mail please arrive early for appointment to fill out paperwork. ) Patient Instructions/Handouts: Asthma (DC), Chronic Hypertension (DC) Discharge Disposition: HOME SELF-CARE
--- NOTE | 2020-06-18 06:52 | CDI ---
Documentation Clarification Form Date: 06/18/20 From: Mary Kate Sousa Phone: If you have a question about this query, please contact Jo Finn, Project Estimator at [phone] between 8am and 5pm. Admit Date: 06/16/2020 08:14:00 AM Patient Name: Aiden Lucas Visit Number: [id number] Discharge Date: 06/16/2020 11:50:00 AM ATTENTION: The Clinical Documentation Specialists (CDI) and [facility] Coding Staff appreciate your assistance in clarifying documentation. Please respond to the clarification below the line at the bottom and electronically sign. The CDI & [facility] Coding staff will review the response and follow-up if needed. Please note: Queries are made part of the Legal Health Record. If you have any questions, please contact the author of this message via ITS. Dr. Darin Donis, Conflicting documentation has been found in the medical record: Per consult-acute non ST-segment elevation myocardial infarction. Per coronary angiogram-It is possible that the patient had a ruptured plaque that caused the mild troponin elevation but I see no evidence of high-grade stenosis at this time. Per DS-Atypical chest pain, with elevated troponins , rule out NSTEMI History/Risk Factors: CAD s/p stent, HTN w hypertrophy, hypertensive urgency, HLD, hx COVID, asthma Clinical Indicators: Chest pain started suddenly, while resting doing nothing. Troponin I-0.114, 0.095, 0.081 Treatment: Underwent coronary angiogram - no blockages found, no in-stent stenosis In your opinion, what is the most clinically appropriate diagnosis for this patient? Non-ST elevation DC CAD w unstable angina Elevated troponin Other explanation of clinical findings Unable to determine (no explanation for clinical findings) Elevated troponin secondary to hypertensive urgency MTDD
== END 2020-06-16 11:50 | disposition home or self-care (01) | DRG 287 ==
LOC: EC 18:16 → 3SCARD 20:29 → OBSVTOIN 06-16 08:14
PROVIDERS: ADMIT Internal Medicine; ATTEND Internal Medicine
PROC: B2111ZZ Fluoroscopy of Multiple Coronary Arteries using Low Osmolar Contrast (ICD-10-PCS; principal; 2020-06-15 20:45)
DX: I16.0 Hypertensive urgency (principal); I25.110 Atherosclerotic heart disease of native coronary artery with unstable angina pectoris; I11.9 Hypertensive heart disease without heart failure; E78.5 Hyperlipidemia, unspecified; Z20.822 Contact with and (suspected) exposure to COVID-19; G62.9 Polyneuropathy, unspecified; R53.1 Weakness; J45.20 Mild intermittent asthma, uncomplicated; R77.8 Other specified abnormalities of plasma proteins; I25.2 Old myocardial infarction; M19.90 Unspecified osteoarthritis, unspecified site; Z79.02 Long term (current) use of antithrombotics/antiplatelets; Z79.82 Long term (current) use of aspirin; Z79.899 Other long term (current) drug therapy; Z95.5 Presence of coronary angioplasty implant and graft; Z87.891 Personal history of nicotine dependence; Z86.16 Personal history of COVID-19; Z86.79 Personal history of other diseases of the circulatory system; Z87.39 Personal history of other diseases of the musculoskeletal system and connective tissue; Z90.49 Acquired absence of other specified parts of digestive tract; Z86.69 Personal history of other diseases of the nervous system and sense organs; Z87.2 Personal history of diseases of the skin and subcutaneous tissue; Z98.890 Other specified postprocedural states; Z88.1 Allergy status to other antibiotic agents; Z88.5 Allergy status to narcotic agent; Z88.8 Allergy status to other drugs, medicaments and biological substances; Z91.048 Other nonmedicinal substance allergy status; Z80.0 Family history of malignant neoplasm of digestive organs; Z80.52 Family history of malignant neoplasm of bladder; Z80.3 Family history of malignant neoplasm of breast; Z82.49 Family history of ischemic heart disease and other diseases of the circulatory system; Z82.61 Family history of arthritis; Z82.69 Family history of other diseases of the musculoskeletal system and connective tissue
CPT/HCPCS: 36415; 71046; 80048; 80053; 83735; 83880; 84484; 85025; 85730; 87635; 93005; 93306; 93458; 94640; 94760; 96374; 99285

== ENCOUNTER → 2021-12-07 | Outpatient (CLI) | payer BC ==
--- NOTE | 2021-12-07 15:02 | P.SLEEP ---
History of Present Illness H&P Date: 12/07/21 66-year-old male patient coming in for a sleep apnea evaluation. The patient was diagnosed having SOSA many years back probably prior to 2009, and at that time the patient was given CPAP machine which he uses for some time and he subsequently quit to treatment and the patient was having soreness in his chest and significant amount of discomfort. Over the years, the patient has lost weight and is currently down by around 30 pounds and he weighs 230 pounds. More recently, he was having issues with some bradycardia and his director content marketing asked him to come and have another sleep evaluation. His bradycardia clipper and turner to be drug induced as the patient was taking Coreg and the dose was reduced. His current cardiac rhythm is sinus. He is known to have CAD and he has undergone previous coronary stenting.. The patient otherwise is doing well. He is having some soft snoring. He does fall asleep during the day and he takes naps. He does not fall asleep while doing day-to-day activities. He is going to bed at around 11 PM and waking of 7:30 AM in the morning. It takes FiO2 to fall asleep. He prefers to sleep on his side. He is a nose breather. Occasional dry mouth. Wakes up to urinate. No sleep paralysis. No hallucinations. No cataplexy. His fourth score is at 9. No nighttime chest pain or shortness of breath. No restlessness in the lower extremities. No anxiety. No depression. No palpitations. No heartburn. No grinding. Review of Systems Constitutional: Reports fatigue, Reports weight loss Eyes: denies as per HPI, denies blurred vision, denies bulging eye, denies decreased vision, denies diplopia, denies discharge, denies dry eye, denies irritation, denies itching, denies pain, denies photophobia, denies loss of peripheral vision, denies loss of vision, denies tunnel vision/blind spots Ears: deny: decreased hearing, ear discharge, earache, tinnitus Ears, nose, mouth and throat: Reports as per HPI Breasts: absent: as per HPI, gynecomastia Cardiovascular: Reports as per HPI Respiratory: Reports sleep apnea, Reports snoring Gastrointestinal: Reports as per HPI Genitourinary: Reports as per HPI Musculoskeletal: Reports as per HPI Musculoskeletal: absent: ankle pain, ankle stiffness, ankle swelling Integumentary: Reports as per HPI Neurological: Reports as per HPI Psychiatric: Reports as per HPI Endocrine: Reports as per HPI Hematologic/Lymphatic: Reports as per HPI Allergic/Immunologic: Reports as per HPI Past Medical History Past Medical History: Asthma, Coronary Artery Disease (CAD), Hyperlipidemia, Hypertension, Myocardial Infarction ([place]), Osteoarthritis (OA), Sleep Apnea/CPAP/BIPAP Additional Past Medical History / Comment(s): neuropathy, Gout, occular migraines, cpap not used, hx pancreatitis, kidney stone, "lung exacerbation"-03/2021, Last Myocardial Infarction Date:: 01/02/2020 History of Any Multi-Drug Resistant Organisms: None Reported Past Surgical History: Cholecystectomy, Ear Surgery, Heart Catheterization With Stent, Joint Replacement, Orthopedic Surgery Additional Past Surgical History / Comment(s): lumpectomy left chest wall, LEFT TYMPANOPLASTY x 2. 3 cardiac stents, rt knee replacement, rhinoplasty, arthroscopy rt knee x 2 Past Anesthesia/Blood Transfusion Reactions: Motion Sickness Date of Last Stent Placement:: 12/2019 Past Alcohol Use History: Occasional Additional Drug Use History / Comment(s): CBD Oil use for pain - Past Family History Father Family Medical History: Cancer Additional Family Medical History / Comment(s): PANCREATIC CANCER Brother(s) Family Medical History: Cancer Additional Family Medical History / Comment(s): BLADDER CANCER Sister(s) Family Medical History: Cancer Additional Family Medical History / Comment(s): BREAST CANCER Mother Family Medical History: Congestive Heart Failure (CHF), Osteoarthritis (OA) Additional Family Medical History / Comment(s): Mother had internal bleeding, gout. Medications and Allergies Home Medications Medication Instructions Recorded Confirmed Type Ascorbic Acid [Vitamin C] 1,000 mg PO DIRECTED 06/01/18 06/18/21 History Tart [place] Tab With Turmeric 1 tab PO HS 06/01/18 06/18/21 History Aspirin EC [Ecotrin Low Dose] 81 mg PO DAILY 01/02/20 06/17/21 History Gabapentin [Neurontin] 300 mg PO HS 01/02/20 06/18/21 History Saw [place] 160 mg PO DIRECTED 01/02/20 06/18/21 History Atorvastatin [Lipitor] 40 mg PO HS #90 tab 01/04/20 06/18/21 Rx Loratadine 10 mg PO DAILY 06/14/20 06/17/21 History Albuterol Inhaler [Ventolin Hfa 2 puff INHALATION RT-Q6H PRN #1 06/16/20 06/18/21 Rx Inhaler] inhaler Albuterol Nebulizer(Dose Unkno 1 applicate IH DIRECTED PRN 05/03/21 06/18/21 History Furosemide [Lasix] 10 mg PO DAILY 05/03/21 06/17/21 History Pantoprazole [Protonix] 40 mg PO DAILY 05/03/21 06/18/21 History Valsartan [Diovan] 320 mg PO QAM 05/03/21 06/17/21 History Vitamin B Complex 1 each PO DAILY 05/03/21 06/18/21 History Vitamin D3(Dose Unknown) 1 tab PO DAILY 05/03/21 06/18/21 History Zinc(Dose Unknown) 1 tab PO DAILY 05/03/21 06/18/21 History carvediloL [Coreg] 12.5 mg PO BID 05/03/21 06/17/21 History Allergies Allergy/AdvReac Type Severity Reaction Status Date / Time adhesive tape Allergy Unknown red , Verified 06/17/21 09:09 irritated skin cephalexin [From Keflex] Allergy Rash/Hives Verified 06/17/21 09:09 propoxyphene napsylate Allergy Rash/Hives Verified 06/17/21 09:09 [From Darvocet-N] Rooster Comb Injection Allergy Unknown Rash/Hives Uncoded 06/17/21 09:09 Physical Exam BP is 134/63, pulse is 68, respirations 16, temperature 96.6 and saturations 96% on room air oxygen. Upper score is at 9. BMI 32.9. Height is 5 feet and 10 inches and weight is 231 pounds. The patient appeared well nourished and normally developed. Vital signs as documented. Head exam is unremarkable. No scleral icterus or corneal arcus noted. Neck is without jugular venous distension, thyromegaly, or carotid bruits. Carotid upstrokes are brisk bilaterally. Lungs are clear to auscultation and percussion. Cardiac exam reveals the PMI to be normally sized and situated. Rhythm is regular. First and second heart sounds normal. No murmurs, rubs or gallops. Abdominal exam reveals normal bowel sounds, no masses, no organomegaly and no aortic enlargement. Extremities are nonedematous and both femoral and pedal pulses are normal.Examination of the skin revealed no evidence of significant rashes, suspicious appearing nevi or other concerning lesions.Neurologically, the patient is awake and alert and the patient does not have any focal neurological deficit. Cranial nerves are essentially intact. Assessment and Plan Plan: Obstructive sleep apnea. The patient has history of obstructive sleep apnea and diagnosed more than 10 years ago and currently is off treatment. Is coming in for reevaluation. He has lost weight. He has some ongoing daytime sleepiness and fatigue and his current [place] score is at 9. He is requesting a reevaluation to decide if ongoing treatment is needed. Coronary artery disease with previous coronary stenting Bronchial asthma currently inactive in stable Hypertension Hyperlipidemia Gout Ocular migraines History of kidney stones Plan Set up this patient for a screening polysomnogram Encourage further weight loss Sleep hygiene measures of good We'll decide to treat only if the patient shows significant amount of obst ructive sleep apnea that may impact his cardiovascular health. He is clinically doing well. No major hypersomnia and sleepiness. He will be encouraged to lose weight and maintaining the sleep hygiene measures. Sleep Note - Sleep Note Sleep Note: Temperature: Pulse Rate: Respiratory Rate: Blood Pressure: SpO2: Height: Weight: BMI: Neck Circumference:
== END | disposition home or self-care (01) ==
LOC: SLEEP 14:14
PROVIDERS: ATTEND Internal Medicine Critical Care Medicine
DX: G47.33 Obstructive sleep apnea (adult) (pediatric) (principal); I25.10 Atherosclerotic heart disease of native coronary artery without angina pectoris; J45.909 Unspecified asthma, uncomplicated; I10 Essential (primary) hypertension; E78.5 Hyperlipidemia, unspecified; M10.9 Gout, unspecified; G43.909 Migraine, unspecified, not intractable, without status migrainosus; Z87.442 Personal history of urinary calculi
CPT/HCPCS: 99211

== ENCOUNTER 2022-01-13 12:52 | Observation (INO) | payer BC, MEDICARE ==
[2022-01-13] MEDS ORDERED: MAG HYDROX/AL HYDROX/SIMETH 30 ML, HYOSCYAMINE ELIXIR 10 ML, LIDOCAINE VISCOUS 2% 10 ML PO STA ×3 (13:09)
--- NOTE | 2022-01-13 13:10 | ED ---
Chest Pain HPI - General Stated Complaint: Chest pain Time Seen by Provider: 01/13/22 13:10 - History of Present Illness Initial Comments: 66-year-old male past medical history of coronary artery disease, hyperlipidemia, reflux who presents emergency Department with reported positional epigastric and chest pain which started around 2 AM. States that he woke from sleep to use the restroom and noted that he had pain in his chest. It was positional in nature and was alleviated when the patient sat up. He has a history of gastric reflux and did miss his dose of GERD medication. He took some Maalox and went to bed. Around 5 AM he awoke when his went to work. The pain was significant therefore he went out to sit on the couch. He took a full dose aspirin at this time. Over the course of the day the pain became constant and therefore EMS was called. He was given a second full dose aspirin and 2 nitro. States that the nitro did not alleviate his symptoms. He follows with Dr. Dugan and has 3 stents in his heart. Pain is pleuritic in nature. Denies history of DVT or PE. No calf pain or swelling. Recently traveled to [place] last week for his [id number] who . No other alleviating, precipitating or modifying factors - Related Data Home Medications Medication Instructions Recorded Confirmed Aspirin EC [Ecotrin Low Dose] 81 mg PO DAILY 01/02/20 01/13/22 Gabapentin [Neurontin] 600 mg PO HS 01/02/20 01/13/22 Loratadine 10 mg PO DAILY 06/14/20 01/13/22 Pantoprazole [Protonix] 40 mg PO DAILY 05/03/21 01/13/22 Furosemide [Lasix] 20 mg PO MOWEFR 01/13/22 01/13/22 Tart [place] 1 tab PO DAILY 01/13/22 01/13/22 Valsartan 80 mg PO HS 01/13/22 01/13/22 Valsartan 160 mg PO DAILY 01/13/22 01/13/22 Previous Rx's Medication Instructions Recorded Atorvastatin [Lipitor] 40 mg PO HS #90 tab 01/04/20 Allergies Allergy/AdvReac Type Severity Reaction Status Date / Time adhesive tape Allergy Unknown red, Verified 01/13/22 14:54 irritated skin cephalexin [From Keflex] Allergy Rash/Hives Verified 01/13/22 14:54 hyaluronic acid Allergy Rash/Hives Verified 01/13/22 14:54 propoxyphene napsylate Allergy Rash/Hives Verified 01/13/22 14:54 [From William] Review of Systems ROS Statement: Those systems with pertinent positive or pertinent negative responses have been documented in the HPI. ROS Other: All systems not noted in ROS Statement are negative. EKG Findings - EKG Comments: EKG Findings:: First EKG done at 1308 demonstrates some J-point elevation 2, 3, aVF. Does not meet STEMI criteria as only lead two has greater than 1 mm of elevation. Reciprocal changes in 1 and aVL. Rate of 92. WV interval 204. QRS 102. QTC of 398. Repeat EKG at 1335 continues to demonstrate some J-point elevation in lead 2 however does not meet STEMI criteria. Rate of 89. WV interval 239. QRS 89. QTC 406. Past Medical History Past Medical History: Asthma, Coronary Artery Disease (CAD), Hyperlipidemia, Hypertension, Myocardial Infarction ([place]), Osteoarthritis (OA), Sleep Apnea/CPAP/BIPAP Additional Past Medical History / Comment(s): neuropathy, Gout, occular migraines, cpap not used, hx pancreatitis, kidney stone, "lung exacerbation"- 03/2021, Last Myocardial Infarction Date:: 01/02/2020 History of Any Multi-Drug Resistant Organisms: None Reported Past Surgical History: Cholecystectomy, Ear Surgery, Heart Catheterization With Stent, Joint Replacement, Orthopedic Surgery Additional Past Surgical History / Comment(s): lumpectomy left chest wall, LEFT TYMPANOPLASTY x 2. 3 cardiac stents, rt knee replacement, rhinoplasty, arthroscopy rt knee x 2 Past Anesthesia/Blood Transfusion Reactions: Motion Sickness Date of Last Stent Placement:: 12/2019 Past Alcohol Use History: Occasional Additional Drug Use History / Comment(s): CBD Oil use for pain - Past Family History Father Family Medical History: Cancer Additional Family Medical History / Comment(s): PANCREATIC CANCER Brother(s) Family Medical History: Cancer Additional Family Medical History / Comment(s): BLADDER CANCER Sister(s) Family Medical History: Cancer Additional Family Medical History / Comment(s): BREAST CANCER Mother Family Medical History: Congestive Heart Failure (CHF), Osteoarthritis (OA) Additional Family Medical History / Comment(s): Mother had internal bleeding, gout. Course Vital Signs 01/13/22 01/13/22 01/13/22 13:07 13:17 14:20 Temperature 98 F Pulse Rate 97 95 89 Pulse Rate [ Pulse Oximetery ] Respiratory 20 16 16 Rate Blood Pressure 176/96 176/89 166/82 Blood Pressure [Left Arm] Blood Pressure [Right Arm] O2 Sat by Pulse 97 96 98 Oximetry 01/13/22 01/13/22 01/13/22 16:27 17:09 19:06 Temperature 98.1 F 98.9 F Pulse Rate 75 Pulse Rate [ 82 74 Pulse Oximetery ] Respiratory 16 20 17 Rate Blood Pressure 140/78 Blood Pressure 151/74 [Left Arm] Blood Pressure 134/70 [Right Arm] O2 Sat by Pulse 98 98 97 Oximetry 01/13/22 19:25 Temperature Pulse Rate Pulse Rate [ Pulse Oximetery ] Respiratory 20 Rate Blood Pressure Blood Pressure [Left Arm] Blood Pressure [Right Arm] O2 Sat by Pulse Oximetry Chest Pain MDM - MDM Upon arrival patient was placed into room 1. A thorough history and physical exam was performed. Patient placed on continuous pulse ox and cardiac mon itoring. IV is established and laboratory studies are conducted. Troponin is negative. D-dimer 0.62. CT of the chest is performed which is a suboptimal study however no central pulmonary embolism. Results discussed the patient. Due to his EKG changes in symptoms patient is heparinized. Recommended admission in order to trend his troponins and obtain a cardiology consultation. Spoke with Dr. Donis who agreed to admit the patient Disposition Clinical Impression: Chest pain, Abnormal EKG Disposition: ADMITTED IP TO THIS [facility] Condition: Stable Is patient prescribed a controlled substance at d/c from ED?: No Time of Disposition: 15:48 Decision to Admit Reason: Admit from EC Decision Date: 01/13/22 Decision Time: 15:48
[2022-01-13 13:45] LABS: Basophils # (A) 0.1 k/uL (0-0.2); Basophils % (A) 0 %; Eosinophils # (A) 0.2 k/uL (0-0.7); Eosinophils % (A) 2 %; HCT 47.5 % (39.0-53.0); HGB 15.3 gm/dL (13.0-17.5); Lymphocytes # (A) 0.7 k/uL (1.0-4.8); Lymphocytes % (A) 6 %; MCHC 32.2 g/dL (31.0-37.0); MCV 99.4 fL (80.0-100.0); Mean Platelet Volume 7.8; Monocytes % (A) 8 %; Neutrophils # (A) 10.1 k/uL (1.3-7.7); Neutrophils % (A) 82 %; Platelet Count 188 k/uL (150-450); RBC 4.78 m/uL (4.30-5.90); RDW 13.3 % (11.5-15.5); WBC 12.4 k/uL (3.8-10.6)
[2022-01-13 14:00] LABS: ALT 23 U/L (4-49); AST 25 U/L (17-59); African American GFR (CKD) >90 (>60 ml/min/1.73 sqM); Alkaline Phosphatase 88 U/L (38-126); Anion Gap 10 mmol/L; Blood Urea Nitrogen 14 mg/dL (9-20); Calcium 9.4 mg/dL (8.4-10.2); Carbon Dioxide 24 mmol/L (22-30); Chloride 101 mmol/L (98-107); Glucose 115 mg/dL (74-99); Lipase 129 U/L (23-300); Magnesium 1.9 mg/dL (1.6-2.3); Non-African American GFR(CKD) 87 (>60 ml/min/1.73 sqM); Potassium 4.2 mmol/L (3.5-5.1); Sodium 135 mmol/L (137-145); Total Bilirubin 1.1 mg/dL (0.2-1.3); Total Protein 6.6 g/dL (6.3-8.2)
[2022-01-13 14:03] LABS: INR 0.9 (<1.2); Partial Thromboplastin Time 23.5 sec (22.0-30.0); Prothrombin Time 9.6 sec (9.0-12.0)
--- NOTE | 2022-01-13 15:35 | CT ---
EXAMINATION TYPE: CT chest angio for PE DATE OF EXAM: 01/13/2022 COMPARISON: Prior CTA chest report January 02, 2020 HISTORY: elevated d-dimer. Pleuritic chest pain. CT DLP: 641 mGycm. Automated Exposure Control for Dose Reduction was Utilized. CONTRAST: CTA scan of the thorax is performed with IV Contrast, patient injected with 100 mL of Isovue 370, pul monary embolism protocol. MIP Images are created on CT scanner and reviewed. FINDINGS: LUNGS: There is respiratory motion artifact limiting evaluation particularly for subcentimeter nodule s. There is at least one subcentimeter approximately 5 mm nodule in the periphery of the right lower lobe axial image 97. Mild linear scarring and/or atelectasis in the lower lungs is seen. No suspiciou s focal consolidation. There is no pleural effusion or pneumothorax seen. The tracheobronchial tree is patent. MEDIASTINUM: Most dense contrast in SVC noted. There is suboptimal study with near equal contrast in the aorta and pulmonary arteries. Some heterogeneity in the periphery. No central pulmonary embolism. Evaluation of smaller segmental and subsegmental branches suboptimal. No thoracic aortic aneurysm or dissection. There are no greater than 1 cm hilar or mediastinal lymph nodes. No cardiomegaly or pe ricardial effusion is seen. OTHER: Cholecystectomy clips are present. Bridging spurs anteriorly and laterally in the thoracic spi ne are noted. IMPRESSION: Suboptimal study. No central pulmonary embolism. No suspicious acute pulmonary process.
[2022-01-13] MEDS ORDERED: MORPHINE SULFATE 4 MG/ML SYRINGE IVP STA (15:49)
[2022-01-13] MEDS ORDERED: NALOXONE 0.4 MG/ML 1 ML VIAL IV PRN ×2 (15:50→17:11)
[2022-01-13] MEDS ORDERED: HEPARIN SODIUM 1,000 UN/ML (10ML VL) IV ONE (15:52)
[2022-01-13] MEDS ORDERED: HEPARIN SODIUM 1,000 UN/ML (10ML VL) IV PRN (15:52)
[2022-01-13] MEDS ORDERED: HEPARIN SOD,PORK IN 0.45% NACL 25,000 UNIT in 0.45% NACL 1 250ML.BAG IV SCH (16:00)
[2022-01-13] MEDS: ASPIRIN 81 MG PO SCH (17:18)
--- NOTE | 2022-01-13 17:19 | P.HPIM ---
History of Present Illness H&P Date: 01/13/22 Chief Complaint: chest pain 66-year-old male past medical history of coronary artery disease with hx of 3 stents, hyperlipidemia, GERD who presents to the emergency Department with chest pain has started this morning at 2 AM. It was associated with a lot of belching, nausea, no vomiting. He stated that he had 3 bowel movements today. No diarrhea. He also states that it hurts when he takes a deep breath. He follows with Dr. Dugan. Denies history of DVT or PE. No calf pain or swelling. Recently traveled to [place] last week for his [id number] who . No other alleviating, precipitating or modifying factors EKG done in the emergency department showed less than 1 mm elevation in the [address] segment in the inferior and lateral leads. Troponin was negative and CT angiogram of the chest did not show any PE or any other acute cardiopulmonary disease. Review of Systems Complete review of system performed, pertinent positives per HPI, otherwise negative Past Medical History Past Medical History: Asthma, Coronary Artery Disease (CAD), Hyperlipidemia, Hypertension, Myocardial Infarction ([place]), Osteoarthritis (OA), Sleep Apnea/CPAP/BIPAP Additional Past Medical History / Comment(s): neuropathy, Gout, occular migraines, cpap not used, hx pancreatitis, kidney stone, "lung exacerbation"- 03/2021, Last Myocardial Infarction Date:: 01/02/2020 History of Any Multi-Drug Resistant Organisms: None Reported Past Surgical History: Cholecystectomy, Ear Surgery, Heart Catheterization With Stent, Joint Replacement, Orthopedic Surgery Additional Past Surgical History / Comment(s): lumpectomy left chest wall, LEFT TYMPANOPLASTY x 2. 3 cardiac stents, rt knee replacement, rhinoplasty, arthroscopy rt knee x 2 Past Anesthesia/Blood Transfusion Reactions: Motion Sickness Date of Last Stent Placement:: 12/2019 Past Alcohol Use History: Occasional Additional Drug Use History / Comment(s): CBD Oil use for pain - Past Family History Father Family Medical History: Cancer Additional Family Medical History / Comment(s): PANCREATIC CANCER Brother(s) Family Medical History: Cancer Additional Family Medical History / Comment(s): BLADDER CANCER Sister(s) Family Medical History: Cancer Additional Family Medical History / Comment(s): BREAST CANCER Mother Family Medical History: Congestive Heart Failure (CHF), Osteoarthritis (OA) Additional Family Medical History / Comment(s): Mother had internal bleeding, gout. Medications and Allergies Home Medications Medication Instructions Recorded Confirmed Type Aspirin EC [Ecotrin Low Dose] 81 mg PO DAILY 01/02/20 01/13/22 History Gabapentin [Neurontin] 600 mg PO HS 01/02/20 01/13/22 History Atorvastatin [Lipitor] 40 mg PO HS #90 tab 01/04/20 01/13/22 Rx Loratadine 10 mg PO DAILY 06/14/20 01/13/22 History Pantoprazole [Protonix] 40 mg PO DAILY 05/03/21 01/13/22 History Furosemide [Lasix] 20 mg PO MOWEFR 01/13/22 01/13/22 History Tart [place] 1 tab PO DAILY 01/13/22 01/13/22 History Valsartan 80 mg PO HS 01/13/22 01/13/22 History Valsartan 160 mg PO DAILY 01/13/22 01/13/22 History Allergies Allergy/AdvReac Type Severity Reaction Status Date / Time adhesive tape Allergy Unknown red, Verified 01/13/22 14:54 irritated skin cephalexin [From Keflex] Allergy Rash/Hives Verified 01/13/22 14:54 hyaluronic acid Allergy Rash/Hives Verified 01/13/22 14:54 propoxyphene napsylate Allergy Rash/Hives Verified 01/13/22 14:54 [From Darvocet-N] Physical Exam Vitals: Vital Signs Temp Pulse Pulse Resp BP BP Pulse Ox 01/13/22 17:09 98.1 F 82 20 151/74 98 01/13/22 16:27 75 16 140/78 98 01/13/22 14:20 89 16 166/82 98 01/13/22 13:17 95 16 176/89 96 01/13/22 13:07 98 F 97 20 176/96 97 Intake and Output 01/13/22 01/13/22 01/13/22 06:59 14:59 22:59 Other: Weight 102.058 kg Constitutional: No acute distress, conversant, pleasant Eyes:Anicteric sclerae, moist conjunctiva, no lid-lag, PERRLA, ENMT: Oropharynx clear, no erythema, exudates Neck: Supple, FROM, no masses, or JVD, No carotid bruits, No thyromegaly Lungs: Clear to auscultation, Clear to percussion, Normal respiratory effort, no accessory muscle use Cardiovascular: Heart regular in rate and rhythm, No murmurs, gallops, or rubs, No peripheral edema Abdominal: Soft, Nontender, no guarding, rebound or rigidity, Normoactive bowel sounds, No hepatomegaly, No splenomegaly, No palpable mass Skin: Normal temperature, tone, texture, turgor, no induration, No subcutaneous nodules, No rash, lesions, No ulcers Extremities: No digital cyanosis, No clubbing, Pedal pulses intact and symmetrical, Radial pulses intact and symmetrical, No calf tenderness Psychiatric: Alert and oriented to person, place and time, appropriate affect, intact judgement Neuro: Muscles Strength 5/5 in all 4 extremities, Sensation to light touch grossly present throughout, Cranial nerves II-XII grossly intact, no focal sensory deficits Results CBC & Chem 7: 01/13/22 13:16 01/13/22 13:16 Labs: Abnormal Lab Results - Last 24 Hours (Table) 01/13/22 01/13/22 01/13/22 Range/Units 13:16 13:16 13:16 WBC 12.4 H (3.8-10.6) k/uL Neutrophils # 10.1 H (1.3-7.7) k/uL Lymphocytes # 0.7 L (1.0-4.8) k/uL D-Dimer 0.62 H (<0.60) mg/L FEU Sodium 135 L (137-145) mmol/L Glucose 115 H (74-99) mg/dL Assessment and Plan Plan: Chest pain with history of coronary artery disease status post stenting Admit to telemetry floor Cycle troponins Heparin drip Consult cardiology Hypertensive urgency Resume his blood pressure medications This could be secondary to pain Hyperlipidemia Osteoarthritis GERD Stable Resume meds Admit to observation
[2022-01-13] MEDS ORDERED: VALSARTAN 80 MG TAB PO SCH (21:00)
[2022-01-13] MEDS ORDERED: GABAPENTIN 300 MG CAP PO SCH (21:00)
[2022-01-13] MEDS ORDERED: ATORVASTATIN 40 MG TAB PO SCH (21:00)
[2022-01-14 05:42] LABS: INR 0.9 (<1.2); Partial Thromboplastin Time 44.5 sec (22.0-30.0); Prothrombin Time 10.3 sec (9.0-12.0)
[2022-01-14] MEDS ORDERED: PANTOPRAZOLE 40 MG TABLET PO SCH (07:30)
[2022-01-14 08:33] VITALS: BP 147/73; RESP 16; TEMP 97.8
[2022-01-14] MEDS ORDERED: VALSARTAN 160 MG TAB PO SCH (09:00)
[2022-01-14] MEDS ORDERED: FUROSEMIDE 20 MG TAB PO SCH (09:00)
[2022-01-14] MEDS ORDERED: LORATADINE 10 MG TAB PO SCH (09:00)
[2022-01-14 09:01] LABS: Basophils # (A) 0.03 X 10*3/uL (0.00-0.10); Basophils % (A) 0.4 %; Eosinophils # (A) 0.16 X 10*3/uL (0.04-0.35); Eosinophils % (A) 1.9 %; HCT 41.7 % (39.6-50.0); Immature Grans, Automated 0.2 %; Lymphocytes # (A) 1.18 X 10*3/uL (0.90-5.00); Lymphocytes % (A) 14.2 %; MCH 33.1 pg (27.0-32.0); MCHC 33.6 g/dL (32.0-37.0); MCV 98.6 fL (80.0-97.0); Mean Platelet Volume 11.1 fL (9.5-12.2); Monocytes # (A) 1.35 X 10*3/uL (0.20-1.00); Monocytes % (A) 16.2 %; NRBC Per 100 WBC 0 /100 WBCS (0.0-0.0); Neutrophils # (A) 5.58 X 10*3/uL (1.80-7.70); Neutrophils % (A) 67.1 %; Platelet Count 202 X 10*3/uL (140-440); RBC 4.23 X 10*6/uL (4.40-5.60); RDW 13.9 % (11.5-14.5); WBC 8.32 X 10*3/uL (4.50-10.00)
[2022-01-14 09:29] LABS: African American GFR (CKD) 89.2 (60.0-200.0); Anion Gap 9.9 mmol/L (10.00-18.00); BUN/Creat Ratio 13.6 Ratio (12.00-20.00); Blood Urea Nitrogen 13.6 mg/dL (9.0-27.0); Calcium 9.2 mg/dL (8.7-10.3); Carbon Dioxide 24.1 mmol/L (20.0-27.5); Potassium 3.8 mmol/L (3.5-5.5)
[2022-01-14] MEDS: ASPIRIN 81 MG PO SCH (10:30)
[2022-01-14] MEDS: IPRATROPIUM-ALBUTEROL 3 ML NEB INHALATION SCH ×2 (11:39)
[2022-01-14 11:43] VITALS: PULSE 84
--- NOTE | 2022-01-14 11:46 | P.DS ---
Providers Date of admission: 01/13/22 15:48 Expected date of discharge: 01/14/22 Attending physician: Darin Donis MD Consults: 01/13/22 15:50 Consult Physician Urgent Consulting Provider: [facility] Consult Reason/Comments: acute chest pain, possible unstable angina Do you want consulting provider notified?: Yes [facility] care [facility]: [facility]: 66-year-old male past medical history of coronary artery disease with hx of 3 stents, hyperlipidemia, GERD who presents to the emergency Department with chest pain has started this morning at 2 AM. It was associated with a lot of belching, nausea, no vomiting. He stated that he had 3 bowel movements today. No diarrhea. He also states that it hurts when he takes a deep breath. He fol lows with Dr. Dugan. Denies history of DVT or PE. No calf pain or swelling. Recently traveled to [place] last week for his [id number] who . No other alleviating, precipitating or modifying factors EKG done in the emergency department showed less than 1 mm elevation in the ST segment in the inferior and lateral leads. Troponin was negative and CT angiogram of the chest did not show any PE or any other acute cardiopulmonary disease. Patient was admitted, troponin was cycled and remained negative. His chest pain got better through the admission, however he continued to have some discomfort in the upper part of the mid chest area. Deep breathing was worsening the pain. He also has some acid reflux symptoms. He was seen by cardiology who did not think that any further workup is needed. Patient currently coughing like he might upper respiratory infection. He is doing well currently, will be discharged home in stable condition. Follow Patient Condition at Discharge: Stable Plan - Discharge Summary Discharge Rx Participant: Yes New Discharge Prescriptions: Continue Aspirin EC [Ecotrin Low Dose] 81 mg PO DAILY Gabapentin [Neurontin] 600 mg PO HS Atorvastatin [Lipitor] 40 mg PO HS #90 tab Loratadine 10 mg PO DAILY Pantoprazole [Protonix] 40 mg PO DAILY Valsartan 80 mg PO HS Tart [place] 1 tab PO DAILY Furosemide [Lasix] 20 mg PO MOWEFR Valsartan 160 mg PO DAILY Discharge Medication List Aspirin EC [Ecotrin Low Dose] 81 mg PO DAILY 01/02/20 [History] Gabapentin [Neurontin] 600 mg PO HS 01/02/20 [History] Atorvastatin [Lipitor] 40 mg PO HS #90 tab 01/04/20 [Rx] Loratadine 10 mg PO DAILY 06/14/20 [History] Pantoprazole [Protonix] 40 mg PO DAILY 05/03/21 [History] Furosemide [Lasix] 20 mg PO MOWEFR 01/13/22 [History] Tart [place] 1 tab PO DAILY 01/13/22 [History] Valsartan 80 mg PO HS 01/13/22 [History] Valsartan 160 mg PO DAILY 01/13/22 [History] Follow up Appointment(s)/Referral(s): Berny Dugan MD [STAFF PHYSICIAN] - 1 Week Liborio Mane DO [Primary Care Provider] - 1-2 days
--- NOTE | 2022-01-14 11:53 | P.CRDCN ---
History of Present Illness History of present illness: This is a 66 year old male with a past medical history of coronary artery disease status post previous PCI to the RCA and left circumflex in 12/2019, hypertension, obstructive sleep apnea, dyslipidemia . He follows with Dr. Dugan. We are asked to see in consultation for chest pain. He presents to the ER with chest discomfort. Yesterday morning he woke up from around 1:30am with upper chest discomfort. He thought it was GERD, he took Mylanta and went back to bed. Around 5:00am he woke up with similar discomfort, he had sharp chest pain in his upper chest, bilateral ear stabbing pain, pain back of his neck and back of his head. He states it was non-exertional. He felt as if it was getting worse. It was aggravated by deep breathing and coughing. He called EMS secondary to the pain not going away. He describes it different from when he had his [place] in the past. He also had no relief with nitroglycerin in the ambulance. He currently is feeling better, he continues to have some discomfort only with coughing and deep breathing. He states it is similar to when he has upper respiratory infections in the past. DIAGNOSTICS * EKG reveals sinus rhythm with first-degree AV block, nonspecific STT wave abnormalities. Prior EKG with similar findings. * Telemetry tracings indicate sinus rhythm * Chest CTA no evidence of pulmonary embolism * Laboratory reviewed, WBC 4.4, hemoglobin 15.3, platelets 188, d-dimer 0.6, sodium 139, potassium 3.8, BUN 13, serum creatinine 1.0, troponin negative 3 * Echocardiogram in the office 03/2021 revealed EF 5560 percent, mild LVH, no pericardial effusion * Lexiscan stress test in the office. 01/2021 revealed no evidence of reversible ischemia * Cardiac catheterization 06/14/2020 revealed patent stent in the left circumflex, patent RCA stent, moderate disease in the first obtuse marginal branchand progression of disease compared to December 2019, mild to moderate disease in the LAD * Current home cardiac medications include valsartan 160 mg in the morning and 80 mg at night, atorvastatin 40 mg nightly, aspirin 81 mg daily REVIEW OF SYSTEMS At the time of my exam: CONSTITUTIONAL: Denies fever or chills. CARDIOVASCULAR: Denies chest pain, shortness of breath, orthopnea, PND or palpitations. RESPIRATORY: Denies cough. GASTROINTESTINAL: Denies abdominal pain, diarrhea, constipation, nausea or vomiting. MUSCULOSKELETAL: Denies myalgias. NEUROLOGIC: Denies numbness, tingling, headacbe or weakness. ENDOCRINE: Denies fatigue, weight change, polydipsia or polyurina. GENITOURINARY: Denies burning, hematuria or urgency with micturation. HEMATOLOGIC: Denies history of anemia or bleeding. PHYSICAL EXAMINATION Blood pressure 143/73, heart 60, afebrile, saturations 96% on room air CONSTITUTIONAL: No apparent distress. HEENT: Head is normocephalic. Pupils are equal, round. Sclerae anicteric. Mucous membranes of the mouth are moist. No JVD. No carotid bruit. CHEST EXAMINATION: Lungs are clear to auscultation. No chest wall tenderness is noted on palpation or with deep breathing. HEART EXAMINATION: Regular rate and rhythm. S1, S2 heard. No murmurs, gallops or rub. ABDOMEN: Soft, nontender. Positive bowel sounds. EXTREMITIES: 2+ peripheral pulses, no lower extremity edema and no calf tenderness. NEUROLOGIC EXAMINATION: Patient is awake, alert and oriented x3. ASSESSMENT Chest pain, appears pleuritic on exam. Acute coronary syndrome has been ruled out Coronary artery disease status post previous PCI to the RCA and left circumflex in 12/2019 Hypertension Obstructive sleep apnea Dyslipidemia PLAN An acute coronary event has been ruled out with no EKG evidence of ischemia and negative cardiac enzymes. No further inpatient workup from cardiology perspective. Discharge per primary. Recommend follow up outpatient with Dr. Dugan Nurse practitioner note has been reviewed by physician. Signing provider agrees with the documented findings, assessment, and plan of care. Past Medical History Past Medical History: Asthma, Coronary Artery Disease (CAD), Hyperlipidemia, Hypertension, Myocardial Infarction ([place]), Osteoarthritis (OA), Sleep Apnea/CPAP/BIPAP Additional Past Medical History / Comment(s): neuropathy, Gout, occular migraines, cpap not used, hx pancreatitis, kidney stone, "lung exacerbation"- 03/2021, Last Myocardial Infarction Date:: 01/02/2020 History of Any Multi-Drug Resistant Organisms: None Reported Past Surgical History: Cholecystectomy, Ear Surgery, Heart Catheterization With Stent, Joint Replacement, Orthopedic Surgery Additional Past Surgical History / Comment(s): lumpectomy left chest wall, LEFT TYMPANOPLASTY x 2. 3 cardiac stents, rt knee replacement, rhinoplasty, arthroscopy rt knee x 2 Past Anesthesia/Blood Transfusion Reactions: Motion Sickness Date of Last Stent Placement:: 12/2019 Past Alcohol Use History: Occasional Additional Drug Use History / Comment(s): CBD Oil use for pain - Past Family History Father Family Medical History: Cancer Additional Family Medical History / Comment(s): PANCREATIC CANCER Brother(s) Family Medical History: Cancer Additional Family Medical History / Comment(s): BLADDER CANCER Sister(s) Family Medical History: Cancer Additional Family Medical History / Comment(s): BREAST CANCER Mother Family Medical History: Congestive Heart Failure (CHF), Osteoarthritis (OA) Additional Family Medical History / Comment(s): Mother had internal bleeding, gout. Medications and Allergies Home Medications Medication Instructions Recorded Confirmed Type Aspirin EC [Ecotrin Low Dose] 81 mg PO DAILY 01/02/20 01/13/22 History Gabapentin [Neurontin] 600 mg PO HS 01/02/20 01/13/22 History Atorvastatin [Lipitor] 40 mg PO HS #90 tab 01/04/20 01/13/22 Rx Loratadine 10 mg PO DAILY 06/14/20 01/13/22 History Pantoprazole [Protonix] 40 mg PO DAILY 05/03/21 01/13/22 History Furosemide [Lasix] 20 mg PO MOWEFR 01/13/22 01/13/22 History Tart [place] 1 tab PO DAILY 01/13/22 01/13/22 History Valsartan 80 mg PO HS 01/13/22 01/13/22 History Valsartan 160 mg PO DAILY 01/13/22 01/13/22 History Allergies Allergy/AdvReac Type Severity Reaction Status Date / Time adhesive tape Allergy Unknown red, Verified 01/13/22 14:54 irritated skin cephalexin [From Keflex] Allergy Rash/Hives Verified 01/13/22 14:54 hyaluronic acid Allergy Rash/Hives Verified 01/13/22 14:54 propoxyphene napsylate Allergy Rash/Hives Verified 01/13/22 14:54 [From Darvocet-N] Physical Exam Vitals: Vital Signs Temp Pulse Pulse Resp BP BP BP 01/14/22 07:00 97.8 F 60 16 147/73 01/14/22 01:36 98.2 F 71 15 137/73 01/13/22 19:25 20 01/13/22 19:06 98.9 F 74 17 134/70 01/13/22 17:09 98.1 F 82 20 151/74 01/13/22 16:27 75 16 140/78 01/13/22 14:20 89 16 166/82 01/13/22 13:17 95 16 176/89 01/13/22 13:07 98 F 97 20 176/96 Pulse Ox 01/14/22 07:00 96 01/14/22 01:36 95 01/13/22 19:25 01/13/22 19:06 97 01/13/22 17:09 98 01/13/22 16:27 98 01/13/22 14:20 98 01/13/22 13:17 96 01/13/22 13:07 97 Intake and Output 01/13/22 01/14/22 01/14/22 22:59 06:59 14:59 Intake Total 56.5 Balance 56.5 Intake: Intake, IV Titration 56.5 Amount Heparin Sod,Pork in 0.45% 56.5 NaCl 25,000 unit In 0.45 % NaCl 1 250ml.bag @ 9. 798 UNITS/KG/HR 10 mls/hr IV .Q24H [facility] Rx#: [id number] Other: # Voids 1 Weight 102.058 kg Results 01/14/22 04:26 01/14/22 04:26 Cardiac Enzymes 01/13/22 01/13/22 01/13/22 Range/Units 13:16 13:16 18:23 AST 25 (17-59) U/L Troponin I <0.012 <0.012 (0.000-0.034) ng/mL 01/13/22 Range/Units 21:08 AST (17-59) U/L Troponin I <0.012 (0.000-0.034) ng/mL Coagulation 01/13/22 01/13/22 01/14/22 Range/Units 13:16 21:08 04:26 PT 9.6 10.3 (9.0-12.0) sec APTT 23.5 35.9 H 44.5 H (22.0-30.0) sec CBC 01/13/22 Range/Units 13:16 WBC 12.4 H (3.8-10.6) k/uL RBC 4.78 (4.30-5.90) m/uL Hgb 15.3 (13.0-17.5) gm/dL Hct 47.5 (39.0-53.0) % Plt Count 188 (150-450) k/uL Comprehensive Metabolic Panel 01/13/22 Range/Units 13:16 Sodium 135 L (137-145) mmol/L Potassium 4.2 (3.5-5.1) mmol/L Chloride 101 (98-107) mmol/L Carbon Dioxide 24 (22-30) mmol/L BUN 14 (9-20) mg/dL Creatinine 0.90 (0.66-1.25) mg/dL Glucose 115 H (74-99) mg/dL Calcium 9.4 (8.4-10.2) mg/dL AST 25 (17-59) U/L ALT 23 (4-49) U/L Alkaline Phosphatase 88 (38-126) U/L Total Protein 6.6 (6.3-8.2) g/dL Albumin 4.0 (3.5-5.0) g/dL Current Medications Generic Name Dose Route Start Last Admin Trade Name Freq PRN Reason Stop Dose Admin Aspirin 81 mg 01/13/22 17:15 01/13/22 17:18 Aspirin 81 Mg PO Not Given DAILY ALFA Atorvastatin Calcium 40 mg 01/13/22 21:00 01/13/22 20:00 Atorvastatin 40 Mg Tab PO 40 mg HS ALFA Administration Furosemide 20 mg 01/14/22 09:00 Furosemide 20 Mg Tab PO MOWEFR ALFA Gabapentin 600 mg 01/13/22 21:00 01/13/22 20:00 Gabapentin 300 Mg Cap PO 600 mg HS ALFA Administration Heparin Sodium (Porcine) 0 unit 01/13/22 15:52 01/13/22 22:04 Heparin Sodium 1,000 Un/Ml (10ml Vl) IV 2,551 unit PER PROTOCOL PRN Administration Low PTT Protocol Heparin Sodium/Sodium Chloride 250 mls @ 10 mls/hr 01/13/22 16:00 01/13/22 21:59 25,000 unit/ Sodium Chloride IV 11.798 units/kg/hr .Q24H ALFA 12.041 mls/hr Titration Protocol 9.798 UNITS/KG/HR Loratadine 10 mg 01/14/22 09:00 Loratadine 10 Mg Tab PO DAILY [facility] Naloxone HCl 0.2 mg 01/13/22 15:50 Naloxone 0.4 Mg/Ml 1 Ml Vial IV Q2M PRN Opioid Reversal Pantoprazole Sodium 40 mg 01/14/22 07:30 Pantoprazole 40 Mg Tablet PO AC-BRKFST ALFA Valsartan 80 mg 01/13/22 21:00 01/13/22 20:00 Valsartan 80 Mg Tab PO 80 mg HS ALFA Administration Valsartan 160 mg 01/14/22 09:00 Valsartan 160 Mg Tab PO DAILY [facility] Intake and Output 01/13/22 01/14/22 01/14/22 22:59 06:59 14:59 Intake Total 56.5 Balance 56.5 Intake: Intake, IV Titration 56.5 Amount Heparin Sod,Pork in 0.45% 56.5 NaCl 25,000 unit In 0.45 % NaCl 1 250ml.bag @ 9. 798 UNITS/KG/HR 10 mls/hr IV .Q24H [facility] Rx#: [id number] Other: # Voids 1 Weight 102.058 kg 01/13/22 13:16 01/13/22 13:16
== END 2022-01-14 13:19 | disposition home or self-care (01) ==
LOC: EC 12:52 → 6NMEDSUR 15:48
PROVIDERS: ADMIT Internal Medicine; ATTEND Internal Medicine
DX: R07.89 Other chest pain (principal); I16.0 Hypertensive urgency; I25.10 Atherosclerotic heart disease of native coronary artery without angina pectoris; E78.5 Hyperlipidemia, unspecified; K21.9 Gastro-esophageal reflux disease without esophagitis; J45.909 Unspecified asthma, uncomplicated; I10 Essential (primary) hypertension; I25.2 Old myocardial infarction; G47.33 Obstructive sleep apnea (adult) (pediatric); G43.909 Migraine, unspecified, not intractable, without status migrainosus; Z95.5 Presence of coronary angioplasty implant and graft; Z96.651 Presence of right artificial knee joint; Z79.82 Long term (current) use of aspirin; Z79.899 Other long term (current) drug therapy; Z88.1 Allergy status to other antibiotic agents; Z80.0 Family history of malignant neoplasm of digestive organs; Z80.52 Family history of malignant neoplasm of bladder; Z80.3 Family history of malignant neoplasm of breast; Z82.49 Family history of ischemic heart disease and other diseases of the circulatory system; M19.90 Unspecified osteoarthritis, unspecified site
CPT/HCPCS: 96365; 96366 ×2; 96372; 96375; 99285; 36415; 94640; 93005; 85379; 80053; 80048; 83690; 83735; 84484; 85025 ×2; 85610 ×2; 85730 ×2; 71275; G0378 ×2; J2270; J1644 ×2; Q9967

== ENCOUNTER → 2022-08-31 | Outpatient (CLI) | payer BC, MEDICARE ==
--- NOTE | 2022-08-31 13:59 | XR ---
EXAMINATION TYPE: XR finger LT DATE OF EXAM: 08/31/2022 1:40 PM INDICATION: Patient age:Male; 67 years old; Reason for study: [id number] LT FINGER PAIN; COMPARISON: None TECHNIQUE: Frontal, lateral and oblique views of the left finger hand were obtained. FINDINGS: Soft tissue swelling around the left third digit proximal interphalangeal joint without monster dence of fracture. IMPRESSION: 1. No acute osseous pathology. 2. Tissue swelling around the third digit of the left hand.
== END | disposition home or self-care (01) ==
LOC: RADXRYALE 13:31
PROVIDERS: ATTEND Physician Assistant
DX: M79.645 Pain in left finger(s) (principal); M79.89 Other specified soft tissue disorders

== ENCOUNTER → 2022-11-24 | Outpatient (CLI) | payer BC, MEDICARE ==
--- NOTE | 2022-11-24 14:53 | XR ---
EXAMINATION TYPE: XR Hip Complete RT DATE OF EXAM: 11/24/2022 CLINICAL HISTORY: pain TECHNIQUE: AP and frogleg views of the right hip are obtained. COMPARISON: None. FINDINGS: There is no acute fracture/dislocation evident. The joint space appears severe degenerat madisyn narrowing right hip joint space. The overlying soft tissue appears unremarkable. IMPRESSION: 1. There is no acute fracture or dislocation. ICD 10 NO FRACTURE, INITIAL EVALUATION
== END | disposition home or self-care (01) ==
LOC: RADXRYALE 14:31
PROVIDERS: ATTEND Physician Assistant
DX: M25.551 Pain in right hip (principal)
CPT/HCPCS: 73502

== ENCOUNTER → 2023-05-11 | Outpatient (CLI) | payer BC, MEDICARE ==
[2023-05-11 17:05] LABS: INR 0.9 (<1.2); Partial Thromboplastin Time 22.7 sec (22.0-30.0); Prothrombin Time 10.2 sec (10.0-12.5)
[2023-05-12 03:06] LABS: ALT 21 U/L (10-49); AST 15 U/L (14-35); Albumin/Globulin Ratio 1.74 Ratio (1.60-3.17); Alkaline Phosphatase 66 U/L (41-126); Blood Urea Nitrogen 13.6 mg/dL (9.0-27.0); Calcium 9.9 mg/dL (8.7-10.3); Carbon Dioxide 25.4 mmol/L (21.6-31.8); Chloride 101 mmol/L (96-109); Globulin 2.3 g/dL (1.6-3.3); Glucose 89 mg/dL (70-110); Potassium 3.8 mmol/L (3.5-5.5); Sodium 139 mmol/L (135-145); Total Bilirubin 0.8 mg/dL (0.3-1.2); Total Protein 6.3 g/dL (6.2-8.2)
[2023-05-12 03:07] LABS: HCT 44.9 % (39.6-50.0); HGB 14.8 g/dL (13.0-17.0); MCH 33.3 pg (27.0-32.0); MCV 100.9 FL (80.0-97.0); Mean Platelet Volume 11.4 FL (9.5-12.2); NRBC Per 100 WBC 0 X 10*3/uL (0.00-0.01); Platelet Count 217 X 10*3/uL (140-440); RBC 4.45 X 10*6/uL (4.40-5.60); RDW 13.2 % (11.5-14.5); WBC 11.55 X 10*3/uL (4.50-10.00)
== END | disposition home or self-care (01) ==
LOC: LABWHC1 15:36
PROVIDERS: ATTEND Orthopaedic Surgery
DX: Z01.812 Encounter for preprocedural laboratory examination (principal); Z22.322 Carrier or suspected carrier of Methicillin resistant Staphylococcus aureus
CPT/HCPCS: 36415; 80053; 85027; 85610; 85730; 86850; 86900; 86901; 87070

== ENCOUNTER → 2023-05-12 | Outpatient (CLI) | payer BC, MEDICARE | END | disposition home or self-care (01) | LOC: LABWHC1 14:58 | PROVIDERS: ATTEND Orthopaedic Surgery | DX: Z01.812 Encounter for preprocedural laboratory examination (principal); Z22.322 Carrier or suspected carrier of Methicillin resistant Staphylococcus aureus | CPT/HCPCS: 87070 ==

== ENCOUNTER 2023-05-23 07:15 | Day surgery (SDC) | payer BC, MEDICARE ==
[~2023-05-23 07:15] MED LIST changes: +ACETAMINOPHEN TAB 500 MG TAB PO PRN; +DEXAMETHASONE SOD PHOSPHATE 4 MG/ML 1 ML VIAL IV ONE; +GABAPENTIN 300 MG CAP PO PRN; +HYDROmorphone 0.5 MG/0.5 ML SYRINGE IVP PRN; +MELOXICAM 7.5 MG TAB PO PRN; -MIDAZOLAM (PF) 2 MG/2 ML VIAL IV PRN; -ROPIVACAINE 246.25 MG, EPINEPHrine 0.5 MG, KETOROLAC 30 MG, cloNIDine HCL/PF 80 MCG, WA... MISCELLANE ONE; +TRANEXAMIC 1,000 MG/100ML-NACL 1,000 MG in SALINE 1 100ML.BAG IVPB PRN; -TRANEXAMIC ACID 1,000 MG in SODIUM CHLORIDE 0.9% 50 ML IVPB ONE; -ceFAZolin IN SWFI 2 GM/20 ML SYRINGE IVP ONE
[2023-05-23] MEDS: LACTATED RINGERS 1,000 ML IV SCH (07:48)
[2023-05-23] MEDS ORDERED: MAGNESIUM HYDROXIDE 2,400 MG/30 ML CUP PO PRN (08:39)
[2023-05-23] MEDS ORDERED: MIDAZOLAM 2 MG/2 ML VIAL IVP ONE (08:39)
[2023-05-23] MEDS ORDERED: NALOXONE 0.4 MG/ML 1 ML VIAL IV PRN (08:39)
[2023-05-23] MEDS ORDERED: HYDROmorphone 0.5 MG/0.5 ML SYRINGE IVP PRN ×3 (08:39)
[2023-05-23] MEDS ORDERED: ONDANSETRON 4 MG/2 ML VIAL IVP PRN (08:39)
[2023-05-23] MEDS ORDERED: HYDROcodone/APAP 7.5-325MG 1 EACH TAB PO PRN (08:41)
--- NOTE | 2023-05-23 08:47 | P.ANPRN ---
Procedure Note - Anesthesia - Nerve Block Performed Right Jermain Single Time Out Performed: Yes ([id number]) Date of Procedure: 05/23/23 Procedure Start Time: 08:40 Procedure Stop Time: 08:45 Location of Patient: PreOp Indication: Acute Post-Operative Pain, Requested by Surgeon Sedation Type: Sedate with meaningful contact maintained Preparation: Sterile Prep, Sterile Dressing Position: Supine Catheter: None Needle Types: Pajunk Needle Gauge: 21 Ultrasound used to visualize needle placement: Yes Ultrasound used to observe medication spread: Yes Injectate: 0.5% Ropivacaine (see comment for volume) (20 mL of block solution containing 10 ML of 0.5% ropivacaine mixed with 10 ML of preservative-free normal saline) Blood Aspirated: No Pain Paresthesia on Injection Noted: No Resistance on Injection: Normal Image Stored and Saved: Yes Events: Uneventful and Well Tolerated
[2023-05-23] MEDS ORDERED: fentaNYL (PF) 50 MCG/ML 2 ML AMP ONE (08:57)
[2023-05-23] MEDS ORDERED: MIDAZOLAM 2 MG/2 ML VIAL ONE (08:57)
[2023-05-23] MEDS ORDERED: SODIUM CHLORIDE 0.9% (PF) 10 ML VIAL ONE (08:57)
[2023-05-23] MEDS ORDERED: ePHEDrine 50 MG/ML 1 ML VIAL ONE (08:57)
[2023-05-23] MEDS ORDERED: TRANEXAMIC 1,000 MG/100ML-NACL PREMIX BAG ONE (08:57)
[2023-05-23] MEDS ORDERED: PHENYLEPHRINE 10 MG/ML VIAL ONE (08:57)
[2023-05-23] MEDS ORDERED: WATER FOR INJECTION, STERILE 10 ML VIAL IV ONE (08:57)
[2023-05-23] MEDS ORDERED: PROPOFOL 10 MG/ML 20 ML VIAL IV ONE (08:57)
[2023-05-23] MEDS ORDERED: ROPIVACAINE 5 MG/ML 30 ML VIAL ONE (08:57)
[2023-05-23] MEDS ORDERED: ROPIVACAINE 5 MG/ML 30 ML VIAL MISCELLANE ONE ×2 (09:34→10:20)
[2023-05-23] MEDS ORDERED: ceFAZolin 1,000 MG in SODIUM CHLORIDE 0.9% 1,000 ML IRRIGATION ONE (09:36)
--- NOTE | 2023-05-23 10:28 | P.OP ---
Date of Procedure: 05/23/23 Preoperative Diagnosis: Severe osteoarthritis right hip Postoperative Diagnosis: Severe osteoarthritis right hip Procedure(s) Performed: Date total hip arthroplasty with a direct anterior approach Implants: [employer] Polarstem standard size 5 with a collar [employer] R3, 3 hole hemispherical acetabular shell, 56 mm [employer] Reflection 6.5 mm cancellus screw, 20 mm 2 [employer] R3, XLPE 20 acetabular liner [employer] Oxinium femoral head 36 mm, +4 All components were press-fit. The articulation is Oxinium on polyethylene. Anesthesia: spinal Surgeon: Liborio Garcia Vocal Artist #1: Erin Turner Estimated Blood Loss (ml): 200 Pathology: none sent Condition: stable Disposition: PACU Indications for Procedure: After failure of conservative treatment we discussed the surgical and nonsur gical treatment options at length. Patient wishes to proceed with a total hip arthroplasty with a direct anterior approach. Complications specific to this procedure were discussed at length, including but not limited to infection, leg length discrepancy, dislocation, nerve injury, and fracture. Covid-19 was also discussed at length with the patient, and they are aware of the current policies and procedures. The patient was given the option of delaying surgery, but they elect to proceed knowing these risks. Patient is aware of all these complications and informed consent was obtained Operative Findings: The operative findings are consistent with severe osteoarthritis of the right hip Description of Procedure: The patient was seen and evaluated in the preoperative area and the consent was reviewed. The operative site was marked with a skin marker. The patient verified the procedure and operative site. A XAVIER block was placed by anesthesia in the preoperative area. The patient was then brought to the operating room and given preoperative antibiotics intravenously. 1 g of Tranexamic acid was also given intravenously. A spinal anesthetic was administered by the anesthesia department. The patient was then placed on the [place] table with the bony prominences well-padded. The hip area was then prepped with a ChloraPrep solution and draped in the usual sterile fashion. A universal timeout was then performed, which confirmed the patient's name, surgical site, ALLERGIES, and procedure being performed on the consent. Next the incision site was located at 1 cm distal and 4 cm lateral to the anterior superior iliac spine. The skin and subcutaneous tissues were sharply incised. Incision was carefully dissected down to the fascia overlying the tensor fascia juan muscle. This fascia was then incised in line with the muscle fibers. Care was taken to stay laterally in order to avoid injuring the lateral femoral cutaneous nerve. Next, using blunt finger dissection, the tensor fascia juan muscle was dissected off its investing fascia. The muscle was then carefully retracted laterally with a cobra retractor over the lateral neck of the femur. Next, the circumflex vessels were identified and cauterized using the Aquamantis device. The anterior hip capsule was then exposed. The capsule was then opened and an inverted T fashion. The retractors were then placed intracapsularly. The retractors were maintained intracapsular throughout the procedure. The proximal femur was then visualized. Fluoroscopic x-rays were then taken in order to evaluate the preoperative leg lengths. A small amount of traction was placed on the leg. The femoral neck was then osteotomized at the appropriate level above the lesser trochanter. A small wedge of bone was then removed from the remaining femoral head. Next, using a corkscrew the femoral head was removed from the acetabulum. On gross visual inspection, the femoral head had complete loss of articular cartilage and multiple periarticular osteophytes. The femoral head was then measured. Attention was then turned to the acetabulum. The acetabulum was exposed and any remaining labrum was excised. Sequential reaming of the acetabulum was performed using fluoroscopic guidance until there was a good bed of bleeding cancellus bone. When the appropriate size was reached, a trial was then placed. The position and fit of the trial was checked with fluoroscopy. The trial was then removed. Then, using fluoroscopic guidance, the final implant was impacted at 20 of anteversion and 40 of abduction, and fully seated in the acetabulum. 2 screws were then placed in the acetabulum. Again fluoroscopy was used to check position of the screws. Next, the liner was then impacted, with a 20 elevated liner located in the anterior superior quadrant. Component locking was confirmed. Attention was then directed to the femur. With the aid of the [place] table, the femur was externally rotated to approximately 130, extended, and adducted under the opposite leg. A side hook was then placed under the proximal femur, and the side hook elevator was used to elevate the proximal femur while releasing the capsule. Retractors were then placed. A capsular release was performed, as well as a release of the conjoined tendon, which afforded excellent vi sualization of the proximal femur. Next, a box osteotome was used to lateralize the proximal femur. A third hand was then used to locate the femoral canal. Sequential broaching was then performed with appropriate size which afforded excellent fixation in the proximal femur. A trial was then placed with appropriate head and neck, and the hip was gently reduced with the aid of the [place] table. Fluoroscopy was then used to check position of the components, as well as to evaluate the leg lengths and offset. The leg lengths and offset were measured as closely as possible to ensure stability of the hip. The hip was then gently dislocated and the trials were then removed. Final implants were then impacted and the hip was again reduced. Final fluoroscopic x-rays confirmed that the components were in anatomic position. The leg lengths and offset were measured and were found to coincide with the trial measurements. The hip was also taken through range of motion, and found to be stable. The hip was then copiously irrigated with antibiotic solution with pulsatile lavage. The hip was then irrigated with Irrisept solution. The soft tissues were then injected with a ropivacaine solution. A second dose of 1 g of Tranexamic acid was also given intravenously. The fascia was then closed with 2-0 strata fix suture. The subcutaneous tissue was closed with 3-0 Vicryl. The subcuticular tissue was closed with 3-0 strata fix suture. The skin was then closed with Exofin skin glue. After the glue and dried, and Optifoam silver impregnated dressing was applied. The patient was th en transferred to the recovery room in stable condition. The roofer assistant SUKI Goldstein was required due to the complexity of surgery, and the need for skilled surgical services coordinator for positioning, draping, exposure, retraction, and closure of the wound.
--- NOTE | 2023-05-23 11:20 | FL ---
EXAMINATION TYPE: FL guidance operating room, XR Hip Limited RT Intraoperative/procedural fluoroscopi c services were provided. Total fluoroscopy time is 20.7 seconds with a total of 3 submitted images t o PACS. Please see the operative/procedural note for further details. DAP: 6.2112 Gycm2
[2023-05-23] MEDS: SODIUM CHLORIDE 0.9% 1,000 ML IV SCH (15:22)
[2023-05-23] MEDS ORDERED: CLINDAMYCIN 900 MG in DEXTROSE 5% IN WATER 50 ML IVPB SCH ×2 (16:00)
[2023-05-23] MEDS ORDERED: PANTOPRAZOLE 40 MG TABLET PO PRN (16:18)
--- NOTE | 2023-05-23 17:44 | P.CONS ---
History of Present Illness - Reason for Consult Consult date: 05/23/23 - History of Present Illness Patient is a 68 year old male with history of hypertension, dyslipidemia, GERD, CAD status post stent, asthma presenting for elective right hip arthroplasty. [facility] has been consulted for medical management. Vital signs within normal limits except for blood pressure being 165/80. Denies any chest pain, shortness of breath, abdominal pain, nausea, vomiting, urinary or bowel complaints. Pertinent positives and negatives as discussed in HPI, a complete review of systems was performed and all other systems are negative. Patient seen and examined at bedside. Vital signs reviewed General: nontoxic, no distress, appears at stated age, obese Derm: warm, dry, dressing clean, dry, intact Head: atraumatic, normocephalic, symmetric Eyes: EOMI, no lid lag, anicteric sclera, pupils equal round reactive to light ENT: Nose and ears atraumatic Neck: No thyromegaly, supple Mouth: no lip lesion, mucus membranes moist Cardiovascular: S1S2 reg, no murmur, no edema Lungs: clear to auscultation bilateral, no rhonchi, no rales, no wheeze, no accessory muscle use Abdominal: soft, nontender to palpation, no guarding, no appreciable organomegaly Ext: no gross muscle atrophy, muscle strength muscle strength 5 out of 5 in all 4 extremities, no contractures Neuro: CN II-XII grossly intact Psych: Alert, oriented, appropriate affect Assessment/Plan: Status post right hip arthroplasty -Pain control with oral Freer as needed, IV Dilaudid as needed, monitor for sedation -Senna for bowel regimen -Aspirin 325 twice a day as DVT prophylaxis -CBC and BMP tomorrow Hypertension Dyslipidemia GERD CAD status post stent -Restarted home atorvastatin 40 mg, olmesartan/hydrochlorothiazide 20-12.5 milligrams, pantoprazole 40 as needed, gabapentin 600 mg at night Obese, BMI 34 -outpatient structured weight loss program Thank you for allowing us to participate in the care of this pleasant patient. Do not hesitate to contact us with questions. Someone can be reached from the [facility] hospitalist group all hours of the day at [phone] or via [email or web address]. Past Medical History Past Medical History: Asthma, Coronary Artery Disease (CAD), Hyperlipidemia, Hypertension, Myocardial Infarction (ID), Osteoarthritis (OA) Additional Past Medical History / Comment(s): neuropathy, Gout, occular migraines,, hx pancreatitis, kidney stone, "lung exacerbation"-03/2021, Last Myocardial Infarction Date:: 01/02/2020 History of Any Multi-Drug Resistant Organisms: None Reported Past Surgical History: Cholecystectomy, Ear Surgery, Heart Catheterization With Stent, Joint Replacement, Orthopedic Surgery Additional Past Surgical History / Comment(s): lumpectomy left chest wall, LEFT TYMPANOPLASTY x 2. 3 cardiac stents, rt knee replacement, rhinoplasty, arthroscopy rt knee x 2 Past Anesthesia/Blood Transfusion Reactions: Motion Sickness Date of Last Stent Placement:: 12/2019 Smoking Status: Never smoker - Past Family History Father Family Medical History: Cancer Additional Family Medical History / Comment(s): PANCREATIC CANCER Brother(s) Family Medical History: Cancer Additional Family Medical History / Comment(s): BLADDER CANCER Sister(s) Family Medical History: Cancer Additional Family Medical History / Comment(s): BREAST CANCER Mother Family Medical History: Congestive Heart Failure (CHF), Osteoarthritis (OA) Additional Family Medical History / Comment(s): Mother had internal bleeding, gout. Medications and Allergies Home Medications Medication Instructions Recorded Confirmed Type Aspirin EC [Ecotrin Low Dose] 81 mg PO DAILY 01/02/20 05/17/23 History Gabapentin [Neurontin] 600 mg PO HS 01/02/20 05/23/23 History Atorvastatin [Lipitor] 40 mg PO HS #90 tab 01/04/20 05/23/23 Rx Pantoprazole [Protonix] 40 mg PO DAILY PRN 05/03/21 05/23/23 History Tart [place] 1 tab PO DAILY 01/13/22 05/17/23 History Fexofenadine HCl [Kim Allergy] 180 mg PO DAILY 05/17/23 05/23/23 History Olmesartan/Hydrochlorothiazide 1 each PO DAILY 05/17/23 05/23/23 History [Olmesartan-Hctz 20-12.5 mg Tab] Vit D(Unk) 1 tab PO DAILY 05/17/23 05/17/23 History Aspirin 325 mg PO BID #60 tab 05/23/23 Rx HYDROcodone/APAP 7.5-325MG [Freer 1 - 2 tab PO Q6H PRN #32 tab 05/23/23 Rx 7.5-325] Sennosides [Senokot] 2 tab PO DAILY PRN #60 tablet 05/23/23 Rx Allergies Allergy/AdvReac Type Severity Reaction Status Date / Time adhesive tape Allergy Unknown red, Verified 05/23/23 08:06 irritated skin cephalexin [From Keflex] Allergy Rash/Hives Verified 05/23/23 08:06 hyaluronic acid Allergy Rash/Hives Verified 05/23/23 08:06 propoxyphene napsylate Allergy Rash/Hives Verified 05/23/23 08:06 [From Darvocet-N] Physical Exam Vitals: Vital Signs Temp Pulse Pulse Resp BP Pulse Ox 05/23/23 15:34 98.2 F 79 17 165/80 96 05/23/23 14:45 89 16 152/65 98 05/23/23 13:45 75 16 131/60 96 05/23/23 12:45 74 16 131/64 96 05/23/23 12:15 76 16 141/68 96 05/23/23 11:45 63 16 135/66 97 05/23/23 11:30 73 16 140/64 97 05/23/23 11:15 75 16 128/70 98 05/23/23 11:03 78 18 158/68 100 05/23/23 10:48 97.4 F L 90 18 144/64 99 05/23/23 08:49 73 18 133/69 70 L 05/23/23 08:12 97.7 F 72 18 181/77 99 Intake and Output 05/23/23 05/23/23 05/23/23 06:59 14:59 22:59 Intake Total 957 Output Total 200 Balance 757 Intake: IV 957 Output: Estimated Blood Loss 200 Other: Weight 109.6 kg 109.6 kg
[2023-05-23 20:00] VITALS: RESP 18
[2023-05-23] MEDS: ASPIRIN 325 MG TAB PO SCH (20:28)
[2023-05-23] MEDS ORDERED: SENNOSIDES-DOCUSATE SODIUM 1 EACH TAB PO SCH (21:00)
[2023-05-23] MEDS ORDERED: GABAPENTIN 300 MG CAP PO SCH (21:00)
[2023-05-23] MEDS ORDERED: ATORVASTATIN 40 MG TAB PO SCH (21:00)
[2023-05-23] MEDS: HYDROcodone/APAP 7.5-325MG 1 EACH TAB PO PRN (23:09)
[2023-05-24] MEDS: LACTATED RINGERS 1,000 ML IV SCH (00:58)
[2023-05-24] MEDS: SODIUM CHLORIDE 0.9% 1,000 ML IV SCH (03:50)
[2023-05-24] MEDS: HYDROcodone/APAP 7.5-325MG 1 EACH TAB PO PRN ×2 (05:08→11:14)
[2023-05-24 06:36] LABS: African American GFR (CKD) >90 (>60 ml/min/1.73 sqM); Anion Gap 5 mmol/L; Blood Urea Nitrogen 19 mg/dL (9-20); Calcium 8.8 mg/dL (8.4-10.2); Carbon Dioxide 23 mmol/L (22-30); Chloride 106 mmol/L (98-107); Glucose 131 mg/dL (74-99); Non-African American GFR(CKD) >90 (>60 ml/min/1.73 sqM); Potassium 4.2 mmol/L (3.5-5.1); Sodium 134 mmol/L (137-145)
[2023-05-24] MEDS: ASPIRIN 325 MG TAB PO SCH (07:19)
[2023-05-24 07:34] VITALS: BP 165/65; PULSE 70; TEMP 97.3
[2023-05-24 08:52] LABS: HCT 38.3 % (39.6-50.0); MCH 33.7 pg (27.0-32.0); MCHC 33.9 g/dL (32.0-37.0); MCV 99.2 FL (80.0-97.0); Mean Platelet Volume 10.7 FL (9.5-12.2); NRBC Per 100 WBC 0 X 10*3/uL (0.00-0.01); Platelet Count 226 X 10*3/uL (140-440); RBC 3.86 X 10*6/uL (4.40-5.60); RDW 12.9 % (11.5-14.5); WBC 11.48 X 10*3/uL (4.50-10.00)
[2023-05-24] MEDS ORDERED: LOSARTAN 50 MG TAB PO SCH (09:00)
[2023-05-24] MEDS ORDERED: LORATADINE 10 MG TAB PO SCH (09:00)
[2023-05-24] MEDS ORDERED: LOSARTAN-HCTZ 50-12.5 MG 1 EACH TAB PO SCH (09:00)
--- NOTE | 2023-05-24 10:27 | P.DS ---
Providers Expected date of discharge: 05/24/23 Attending physician: Liborio Garcia Consults: 05/23/23 08:39 Consult Physician Routine Consulting Provider: Mehdi Gamez Consult Reason/Comments: medical management Do you want consulting provider notified?: Yes Primary care physician: Liborio Mane - Discharge Diagnosis(es) (1) Osteoarthritis of right hip Current Visit: Yes Status: Acute (2) S/P total hip arthroplasty Current Visit: Yes Status: Acute Hospital Course: This is a 68-year-old male with known history of degenerative arthritis of the right hip. The patient presented for evaluation as an outpatient. After discussion and consideration patient elects to proceed with total hip arthroplasty. The patient is seen preoperatively by Dr. Garcia and medically cleared for surgery by their primary care physician. Patient is admitted to [facility] on 05/23/2023 for total hip arthroplasty. The procedure is performed without complication or sequelae. The patient is doing well postoperatively. Labs and vital signs are stable on day of discharge. On day of discharge patient's hip incision is healing well. There is minimal erythema. There is no drainage noted at this time. There is minimal soft tissue swelling to the hip and thigh. Patient has full foot and ankle motion without difficulty or pain. Calf is soft and nontender to palpation. Neurovascular status to the right lower extremity is intact. Patient is discharged home in good condition. Please see med rec for accurate list of home medications. Plan - Discharge Summary Discharge Rx Participant: Yes New Discharge Prescriptions: New HYDROcodone/APAP 7.5-325MG [Rison 7.5-325] 1 - 2 tab PO Q6H PRN #32 tab PRN Reason: Pain Aspirin 325 mg PO BID #60 tab Sennosides [Senokot] 2 tab PO DAILY PRN #60 tablet PRN Reason: Constipation No Action Aspirin EC [Ecotrin Low Dose] 81 mg PO DAILY Gabapentin [Neurontin] 600 mg PO HS Atorvastatin [Lipitor] 40 mg PO HS #90 tab Pantoprazole [Protonix] 40 mg PO DAILY PRN PRN Reason: gerd Tart [place] 1 tab PO DAILY Olmesartan/Hydrochlorothiazide [Olmesartan-Hctz 20-12.5 mg Tab] 1 each PO DAILY Fexofenadine HCl [Kim Allergy] 180 mg PO DAILY Vit D(Unk) 1 tab PO DAILY Discharge Medication List Aspirin EC [Ecotrin Low Dose] 81 mg PO DAILY 01/02/20 [History] Gabapentin [Neurontin] 600 mg PO HS 01/02/20 [History] Atorvastatin [Lipitor] 40 mg PO HS #90 tab 01/04/20 [Rx] Pantoprazole [Protonix] 40 mg PO DAILY PRN 05/03/21 [History] Tart [place] 1 tab PO DAILY 01/13/22 [History] Fexofenadine HCl [Kim Allergy] 180 mg PO DAILY 05/17/23 [History] Olmesartan/Hydrochlorothiazide [Olmesartan-Hctz 20-12.5 mg Tab] 1 each PO DAILY 05/17/23 [History] Vit D(Unk) 1 tab PO DAILY 05/17/23 [History] Aspirin 325 mg PO BID #60 tab 05/23/23 [Rx] HYDROcodone/APAP 7.5-325MG [Rison 7.5-325] 1 - 2 tab PO Q6H PRN #32 tab 05/23/23 [Rx] Sennosides [Senokot] 2 tab PO DAILY PRN #60 tablet 05/23/23 [Rx] Follow up Appointment(s)/Referral(s): [facility] [NON-STAFF] - 1 Week ([facility] will call you to arrange a visit) Liborio Garcia DO [Doctor of Osteopathic Medicine] - 2 Weeks Activity/Diet/Wound Care/Special Instructions: Weightbearing as tolerated with walker. Leave dressing intact. Dressing may be removed by home care nurse or by patient in 7 days. Then change dressing twice daily until follow up. May shower with initial dressing intact and after removal. If dressing become saturated, please remove. Please take aspirin 325mg twice daily for 30 days to prevent blood clots. Recommend use of compression stockings daily until follow up to help prevent swelling and blood clots. May remove at night before sleeping. Please follow-up with [facility] in 2 weeks and call with any questions or concerns, . Discharge Disposition: HOME WITH HOME HEALTH SERVICES
[2023-05-24 11:20] LABS: Basophils # (A) 0.01 X 10*3/uL (0.00-0.10); Basophils % (A) 0.1 %; Eosinophils # (A) 0 X 10*3/uL (0.04-0.35); Eosinophils % (A) 0 %; Lymphocytes # (A) 0.85 X 10*3/uL (0.90-5.00); Lymphocytes % (A) 7.4 %; Monocytes # (A) 1.71 X 10*3/uL (0.20-1.00); Monocytes % (A) 14.9 %; Neutrophils # (A) 8.86 X 10*3/uL (1.80-7.70); Neutrophils % (A) 77.2 %; RBC Morphology Normal (Normal)
--- NOTE | 2023-05-24 15:46 | P.PN ---
Subjective Progress Note Date: 05/24/23 Subjective: Seen and examined at bedside. No acute events overnight. Pertinent positives and negatives as discussed above, a complete review of systems was performed and all other systems are negative. Vitals Signs Reviewed. General: nontoxic, no distress, appears at stated age Derm: warm, dry, potassium clean, dry, intact Head: atraumatic, normocephalic, symmetric Eyes: EOMI, no lid lag, anicteric sclera Mouth: no lip lesion, mucus membranes moist Cardiovascular: S1S2 reg, no murmur Lungs: CTA bilateral, no rhonchi, no rales , no accessory muscle use Abdominal: soft, nontender to palpation, no guarding, no appreciable organomegaly Ext: no gross muscle atrophy, no edema, no contractures Neuro: CN II-XI grossly intact, no focal neuro deficits Psych: Alert, oriented, appropriate affect Data Reviewed Today: Pertinent Labs: WBC 11.48, hemoglobin 13, creatinine 0.74 Imaging: No new imaging Assessment and Plan: Status post right hip arthroplasty Leukocytosis, 90 surgery -Pain control with oral Teller as needed, IV Dilaudid as needed, monitor for sedation -Senna for bowel regimen -Aspirin 325 twice a day as DVT prophylaxis Hypertension Dyslipidemia GERD CAD status post stent -Continue home atorvastatin 40 mg, olmesartan/hydrochlorothiazide 20-12.5 milligrams, pantoprazole 40 as needed, gabapentin 600 mg at night Obese, BMI 34 -outpatient structured weight loss program Patient is medically optimized for discharge home Thank you for allowing us to participate in the care of this pleasant patient. Do not hesitate to contact us with questions. Someone can be reached from the [facility] hospitalist group all hours of the day at [phone] or via [employer]. Objective - Vital Signs Vital signs: Vital Signs Temp 97.3 F L 05/24/23 07:27 Pulse 70 05/24/23 07:27 Resp 18 05/24/23 07:27 BP 165/65 05/24/23 07:27 Pulse Ox 95 05/24/23 07:27 FiO2 Intake & Output 05/23/23 05/24/23 05/24/23 18:59 06:59 18:59 Intake Total 957 Output Total 200 Balance 757 Weight 109.6 kg Intake: IV 957 Output: Estimated Blood Loss 200 Other: # Voids 1 2 # Bowel Movements 1 - Labs CBC & Chem 7: 05/24/23 05:36 05/24/23 05:36 Labs: Abnormal Lab Results - Last 24 Hours (Table) 05/24/23 05/24/23 Range/Units 05:36 05:36 WBC 11.48 H (4.50-10.00) X 10*3/uL RBC 3.86 L (4.40-5.60) X 10*6/uL Hct 38.3 L (39.6-50.0) % MCV 99.2 H (80.0-97.0) FL MCH 33.7 H (27.0-32.0) pg Immature Gran # 0.05 H (0.00-0.04) X 10*3/uL Neutrophils # 8.86 H (1.80-7.70) X 10*3/uL Lymphocytes # 0.85 L (0.90-5.00) X 10*3/uL Monocytes # 1.71 H (0.20-1.00) X 10*3/uL Eosinophils # 0 L (0.04-0.35) X 10*3/uL Sodium 134 L (137-145) mmol/L Glucose 131 H (74-99) mg/dL
== END 2023-05-24 13:04 | disposition home health service (06) ==
LOC: OR 07:15 → 4SSUR 10:41 → OR 05-24 13:04
PROVIDERS: ATTEND Orthopaedic Surgery
DX: M16.11 Unilateral primary osteoarthritis, right hip (principal); G89.18 Other acute postprocedural pain; I11.9 Hypertensive heart disease without heart failure; Z95.5 Presence of coronary angioplasty implant and graft; K21.9 Gastro-esophageal reflux disease without esophagitis; E78.2 Mixed hyperlipidemia; J45.20 Mild intermittent asthma, uncomplicated; I25.10 Atherosclerotic heart disease of native coronary artery without angina pectoris; G62.9 Polyneuropathy, unspecified; E66.01 Morbid (severe) obesity due to excess calories; Z68.35 Body mass index [BMI] 35.0-35.9, adult; G47.33 Obstructive sleep apnea (adult) (pediatric); M10.9 Gout, unspecified; Z88.5 Allergy status to narcotic agent; Z91.09 Other allergy status, other than to drugs and biological substances; Z88.1 Allergy status to other antibiotic agents; Z79.82 Long term (current) use of aspirin; Z79.899 Other long term (current) drug therapy; Z87.891 Personal history of nicotine dependence; Z79.51 Long term (current) use of inhaled steroids
CPT/HCPCS: 97161; 97535; 97165; 64447; 80048; 85025; 73501; 27130; C1776; J2250; J1100; J0690 ×2; J2405; J2795; J1170

== ENCOUNTER → 2023-09-20 | Outpatient (CLI) | payer BC ==
--- NOTE | 2023-09-25 23:48 | XR ---
EXAMINATION TYPE: XR elbow complete RT DATE OF EXAM: 09/20/2023 COMPARISON: None HISTORY: 68-year-old male [id number] RT ELBOW PAIN TECHNIQUE: 3 views FINDINGS: There is a small chirag spur from the distal humeral shaft. Underlying elbow joint effusion which is n onspecific. Bony spurring at the lateral epicondyle. No acute fracture, subluxation, dislocation is s een. IMPRESSION: 1. Normal anatomic variation with an chirag spur from the distal humeral shaft. 2. Underlying elbow joint effusion which is nonspecific. If concern for internal derangement, MRI can be considered. If concern for occult osseous injury, consider follow-up in 10-14 days. 3. Bony spurring at the lateral epicondyle can be seen with common extensor origin tendinopathy.
== END | disposition home or self-care (01) ==
LOC: RADXRYALE 14:00
PROVIDERS: ATTEND Physician Assistant Medical
DX: M25.421 Effusion, right elbow (principal)

== ENCOUNTER → 2024-04-02 | Outpatient (CLI) | payer BC ==
[2024-04-02 17:30] LABS: INR 0.9 (<1.2); Prothrombin Time 10.2 sec (10.0-12.5)
[2024-04-02 17:40] LABS: Partial Thromboplastin Time 20.1 sec (22.0-30.0)
[2024-04-03 02:37] LABS: HCT 43.7 % (39.6-50.0); HGB 14.5 g/dL (13.0-17.0); MCH 32.8 pg (27.0-32.0); MCHC 33.2 g/dL (32.0-37.0); MCV 98.9 FL (80.0-97.0); Mean Platelet Volume 11.9 FL (9.5-12.2); NRBC Per 100 WBC 0 X 10*3/uL (0.00-0.01); Platelet Count 193 X 10*3/uL (140-440); RBC 4.42 X 10*6/uL (4.40-5.60); RDW 12.8 % (11.5-14.5); WBC 6.98 X 10*3/uL (4.50-10.00)
[2024-04-03 03:00] LABS: ALT 16 U/L (10-49); AST 18 U/L (14-35); Albumin 4.1 g/dL (3.8-4.9); Albumin/Globulin Ratio 1.64 Ratio (1.60-3.17); Alkaline Phosphatase 77 U/L (41-126); Calcium 9.8 mg/dL (8.7-10.3); Carbon Dioxide 24.7 mmol/L (21.6-31.8); Chloride 106 mmol/L (96-109); Globulin 2.5 g/dL (1.6-3.3); Glucose 124 mg/dL (70-110); Potassium 4.1 mmol/L (3.5-5.5); Sodium 143 mmol/L (135-145); Total Bilirubin 0.5 mg/dL (0.3-1.2); Total Protein 6.6 g/dL (6.2-8.2)
== END | disposition home or self-care (01) ==
LOC: LABWHC1 16:13
PROVIDERS: ATTEND Orthopaedic Surgery
DX: Z01.812 Encounter for preprocedural laboratory examination (principal); M16.12 Unilateral primary osteoarthritis, left hip; Z22.322 Carrier or suspected carrier of Methicillin resistant Staphylococcus aureus
CPT/HCPCS: 80053; 85027; 85610; 85730; 86850; 86900; 86901; 87070

== ENCOUNTER 2024-04-09 11:31 | Day surgery (SDC) | payer BC ==
[2024-04-02 13:32] VITALS: BMI 33.5
[~2024-04-09 11:31] MED LIST changes: -ACETAMINOPHEN TAB 500 MG TAB PO PRN; -DEXAMETHASONE SOD PHOSPHATE 4 MG/ML 1 ML VIAL IV ONE; -GABAPENTIN 300 MG CAP PO PRN; -MELOXICAM 7.5 MG TAB PO PRN; -ONDANSETRON 4 MG/2 ML VIAL IVP ONE
[2024-04-09] MEDS: IV FLUID CONTINUATION 1,000 ML IV ONE (11:57)
[2024-04-09] MEDS: ONDANSETRON 4 MG/2 ML VIAL IVP ONE (12:34)
[2024-04-09] MEDS: DEXAMETHASONE SOD PHOSPHATE 4 MG/ML 1 ML VIAL IV ONE (12:34)
[2024-04-09] MEDS: MELOXICAM 7.5 MG TAB PO PRN (12:34)
[2024-04-09] MEDS: ACETAMINOPHEN TAB 500 MG TAB PO PRN (12:35)
[2024-04-09] MEDS: GABAPENTIN 300 MG CAP PO PRN (12:35)
[2024-04-09] MEDS: LACTATED RINGERS 1,000 ML IV SCH (12:35)
[2024-04-09] MEDS: MIDAZOLAM 2 MG/2 ML VIAL IV ONE (12:45)
[2024-04-09 13:00] LABS: Glucose,Whole Blood 88 mg/dL (70-110)
[2024-04-09] MEDS ORDERED: NALOXONE 0.4 MG/ML 1 ML VIAL IV PRN (13:13)
[2024-04-09] MEDS ORDERED: ONDANSETRON 4 MG/2 ML VIAL IVP PRN (13:13)
[2024-04-09] MEDS ORDERED: HYDROmorphone 0.5 MG/0.5 ML SYRINGE IVP PRN ×3 (13:13)
[2024-04-09] MEDS ORDERED: MAGNESIUM HYDROXIDE 2,400 MG/30 ML CUP PO PRN (13:13)
[2024-04-09] MEDS ORDERED: HYDROcodone/APAP 7.5-325MG 1 EACH TAB PO PRN (13:15)
[2024-04-09] MEDS ORDERED: DEXAMETHASONE SOD PHOSPHATE 4 MG/ML 1 ML VIAL ONE (13:25)
[2024-04-09] MEDS ORDERED: TRANEXAMIC 1,000 MG/100ML-NACL PREMIX BAG ONE (13:25)
[2024-04-09] MEDS ORDERED: PROPOFOL 10 MG/ML 20 ML VIAL IV ONE (13:25)
[2024-04-09] MEDS ORDERED: PHENYLEPHRINE 10 MG/ML VIAL ONE (13:25)
[2024-04-09] MEDS ORDERED: MIDAZOLAM 2 MG/2 ML VIAL ONE (13:25)
[2024-04-09] MEDS ORDERED: ROPIVACAINE 5 MG/ML 30 ML VIAL ONE (13:25)
[2024-04-09] MEDS: ceFAZolin 1,000 MG in SODIUM CHLORIDE 0.9% 1,000 ML IRRIGATION ONE (13:30)
[2024-04-09] MEDS: ROPIVACAINE 5 MG/ML 30 ML VIAL MISCELLANE ONE ×2 (13:36→14:33)
--- NOTE | 2024-04-09 14:39 | P.OP ---
Date of Procedure: 04/09/24 Preoperative Diagnosis: Severe osteoarthritis left hip Postoperative Diagnosis: Severe osteoarthritis left hip Procedure(s) Performed: Left total hip arthroplasty with a direct anterior approach Implants: [employer]hew Polarstem standard size 5 with a collar [employer]hew R3, 3 hole hemispherical acetabular shell, 54 mm Fremin & Nephew Reflection 6.5 mm cancellus screws, 20 mm, 25 mm [employer]in [employer]hew R3, XLPE 20 acetabular liner [employer]hew Oxinium femoral head 36 mm, +4 All components were press-fit. The articulation is Oxinium on polyethylene. Anesthesia: spinal Surgeon: Liborio Garcia Sales Representative Raw Fibers #1: Erin Turner Estimated Blood Loss (ml): 150 Pathology: none sent Condition: stable Disposition: PACU Indications for Procedure: After failure of conservative treatment we discussed the surgical and no nsurgical treatment options at length. Patient wishes to proceed with a total hip arthroplasty with a direct anterior approach. Complications specific to this procedure were discussed at length, including but not limited to infection, leg length discrepancy, dislocation, nerve injury, and fracture. Covid-19 was also discussed at length with the patient, and they are aware of the current policies and procedures. The patient was given the option of delaying surgery, but they elect to proceed knowing these risks. Patient is aware of all these complications and informed consent was obtained Operative Findings: The operative findings are consistent with severe osteoarthritis of the left hip Description of Procedure: The patient was seen and evaluated in the preoperative area and the consent was reviewed. The operative site was marked with a skin marker. The patient verified the procedure and operative site. A XAVIER block was placed by anesthesia in the preoperative area. The patient was then brought to the operating room and given preoperative antibiotics intravenously. 1 g of Tranexamic acid was also given intravenously. A spinal anesthetic was administered by the anesthesia department. The patient was then placed on the Register table with the bony prominences well-padded. The hip area was then prepped with a ChloraPrep solution and draped in the usual sterile fashion. A universal timeout was then performed, which confirmed the patient's name, surgical site, ALLERGIES, and procedure being performed on the consent. Next the incision site was located at 1 cm distal and 4 cm lateral to the anterior superior iliac spine. The skin and subcutaneous tissues were sharply incised. Incision was carefully dissected down to the fascia overlying the tensor fascia juan muscle. This fascia was then incised in line with the muscle fibers. Care was taken to stay laterally in order to avoid injuring the lateral femoral cutaneous nerve. Next, using blunt finger dissection, the tensor fascia juan muscle was dissected off its investing fascia. The muscle was then carefully retracted laterally with a cobra retractor over the lateral neck of the femur. Next, the circumflex vessels were identified and cauterized using the Aquamantis device. The anterior hip capsule was then exposed. The capsule was then opened and an inverted T fashion. The retractors were then placed intracapsularly. The retractors were maintained intracapsular throughout the procedure. The proximal femur was then visualized. Fluoroscopic x-rays were then taken in order to evaluate the preoperative leg lengths. A small amount of traction was placed on the leg. The femoral neck was then osteotomized at the appropriate level above the lesser trochanter. A small wedge of bone was then removed from the remaining femoral head. Next, using a corkscrew the femoral head was removed from the acetabulum. On gross visual inspection, the femoral head had complete loss of articular cartilage and multiple periarticular osteophytes. The femoral head was then measured. Attention was then turned to the acetabulum. The acetabulum was exposed and any remaining labrum was excised. Sequential reaming of the acetabulum was performed using fluoroscopic guidance until there was a good bed of bleeding cancellus bone. When the appropriate size was reached, a trial was then placed. The position and fit of the trial was checked with fluoroscopy. The trial was then removed. Then, using fluoroscopic guidance, the final implant was impacted at 20 of anteversion and 40 of abduction, and fully seated in the acetabulum. 2 screws were then placed in the acetabulum. Again fluoroscopy was used to check position of the screws. Next, the liner was then impacted, with a 20 elevated liner located in the anterior superior quadrant. Component locking was confirmed. Attention was then directed to the femur. With the aid of the Register table, the femur was externally rotated to approximately 130, extended, and adducted under the opposite leg. A side hook was then placed under the proximal femur, and the side hook elevator was used to elevate the proximal femur while releasing the capsule. Retractors were then placed. A capsular release was performed, as well as a release of the conjoined tendon, which afforded excellent visualization of the proximal femur. Next, a box osteotome was used to lateralize the proximal femur. A mail handlers supervisor was then used to locate the femoral canal. Sequential broaching was then performed with appropriate size which afforded excellent fixation in the proximal femur. A trial was then placed with appropriate head and neck, and the hip was gently reduced with the aid of the Register table. Fluoroscopy was then used to check position of the components, as well as to evaluate the leg lengths and offset. The leg lengths and offset were measured as closely as possible to ensure stability of the hip. The hip was then gently dislocated and the trials were then removed. Final implants were then impacted and the hip was again reduced. Final fluoroscopic x-rays confirmed that the components were in anatomic position. The leg lengths and offset were measured and were found to coincide with the trial measurements. The hip was also taken through range of motion, and found to be stable. The hip was then copiously irrigated with antibiotic solution with pulsatile lavage. The hip was then irrigated with Irrisept solution. The soft tissues were then injected with a ropivacaine solution. A second dose of 1 g of Tranexamic acid was also given intravenously. The fascia was then closed with 2-0 strata fix suture. The subcutaneous tissue was closed with 3-0 Vicryl. The subcuticular tissue was closed with 3-0 moncryl suture. The skin was then closed with Exofin skin glue. After the glue and dried, and Optifoam silver impregnated dressing was applied. The patient was th en transferred to the recovery room in stable condition. The animal assistant SUKI Goldstein was required due to the complexity of surgery, and the need for skilled surgical rn for positioning, draping, exposure, retraction, and closure of the wound.
--- NOTE | 2024-04-09 14:57 | P.ANPRN ---
Procedure Note - Anesthesia - Nerve Block Performed Left Jermain Single Time Out Performed: Yes Date of Procedure: 04/09/24 Procedure Start Time: 12:45 Procedure Stop Time: 12:51 Location of Patient: PreOp Indication: Acute Post-Operative Pain, Requested by Surgeon Sedation Type: Sedate with meaningful contact maintained Preparation: Sterile Prep Position: Supine Needle Types: Pajunk Needle Gauge: 21 Ultrasound used to visualize needle placement: Yes Ultrasound used to observe medication spread: Yes Blood Aspirated: No Pain Paresthesia on Injection Noted: No Resistance on Injection: Normal Image Stored and Saved: Yes Events: Uneventful and Well Tolerated (Ropivacaine 0.5% 20 cc plus dexamethasone 4 mg)
--- NOTE | 2024-04-09 15:25 | FL ---
EXAMINATION TYPE: FL guidance operating room, XR Hip Limited LT DATE OF EXAM: 04/09/2024 2:57 PM COMPARISON: Chest radiographs from CLINICAL INDICATION: Male, 69 years old with history of LEFT ANTERIOR HIP, , FINDINGS: LT anterior hip with Heithoff 21.1 sec fluoro time 1.7456 DAP 3 images saved LC Images during left hip total arthroplasty. Hardware appears to be appropriately positioned. [facility], , 04/09/2024 3:01 PM
[2024-04-09] MEDS: LABETALOL SYRINGE 5 MG/ML (4 ML SYR) IVP STA (17:26)
[2024-04-09] MEDS: SODIUM CHLORIDE 0.9% 1,000 ML IV SCH (17:42)
[2024-04-09] MEDS: HYDROcodone/APAP 7.5-325MG 1 EACH TAB PO PRN (18:25)
[2024-04-09] MEDS: SENNOSIDES-DOCUSATE SODIUM 1 EACH TAB PO SCH (20:50)
[2024-04-09] MEDS: ASPIRIN 325 MG TAB PO SCH (20:51)
--- NOTE | 2024-04-09 22:30 | P.CONS ---
History of Present Illness - Reason for Consult Consult date: 04/09/24 Medical management - History of Present Illness Patient is a 69-year-old male with past medical history of asthma, hypertension, sleep apnea, osteoarthritis of left hip, coronary artery disease with history of 3 stents, hyperlipidemia, GERD is seen in the surgical floor for medical management status post left total hip arthroplasty with direct anterior approach on 04/09/2024. Per operative note, patient wished to proceed with a total hip arthroplasty with direct anterior approach after failure of conservative treatment. She underwent the arthroplasty earlier today with no obvious complications and was seen postoperatively on the surgical unit. Patient was seen at bedside with no acute complaints other than a dull achy pain in the lower back that started after surgery. Patient denies fever, chills, nausea, vomiting, constipation, diarrhea, chest pain, shortness of breath, belly pain, weakness in upper or lower extremity. Also reported a tingling sensation in bilateral feet but that has been going on for a while now as patient reported a long history of neuropathy. Patient's blood pressure is found to be elevated at 168/80. Patient reported that he usually takes half tablet of olmesartan/hydrochlorothiazide because the full tablet would drop his blood pressure too quickly. Vitals on admission pulse rate of 64, respiratory rate 16, blood pressure 168/80, saturating at 96% on room air X-ray of the hip showed left hip total arthroplasty, hardware appears to be appropriately positioned. Labs on admission show glucose of 88 Review of systems: Pertinent positives and negatives as discussed in HPI, a complete review of systems was performed and all other systems are negative. PMH: asthma, hypertension, sleep apnea, osteoarthritis of left hip, coronary artery disease with history of 3 stents last stent was in 2019, hyperlipidemia, GERD PSH: Cholecystectomy, ear surgery, heart catheterization with stent(last stent in 2019), joint replacement, left total hip arthroplasty in 2023 FMH: Mother has a history of congestive heart failure and osteoarthritis, father has a history of pancreatic cancer Allergies: Adhesive tape, cephalexin, hyaluronic acid, propoxyphene napsylate Social history: Tobacco: Not current smoker, quit smoking 17 years ago Alcohol: Occasional Recreational drugs: CBD oil use for pain Travel: No travel history Sick contacts: No recent sick contacts Physical examination: Vital signs reviewed General: nontoxic, no distress, appears at stated age, alert, well-appearing Derm: warm, dry, intact Head: atraumatic, normocephalic, symmetric Eyes: EOMI, anicteric sclera Mouth: no lip lesion, mucus membranes moist Cardiovascular: S1 S2 reg, no murmur Lungs: CTA bilateral, no rhonchi, no rales, no accessory muscle use Abdominal: soft, non-tender to palpation Extremities: No cyanosis, clubbing, or pedal edema, L anterior hip dressing clean and dry with no surrounding skin abnormalities noted Neuro: Gross neurological examination did not reveal any focal deficits. Intact upper and lower extremity muscle strength bilaterally 5 out of 5 except for proximal LLE due to postsurgical pain, Cranial nerves II through XII grossly intact. Psych: appropriate affect Assessment/Plan: 69-year-old male with past medical history of asthma, hypertension, sleep apnea, osteoarthritis of left hip, coronary artery disease with history of 3 stents, hyperlipidemia, GERD is seen for medical consultation status post left total hip arthroplasty on 04/09/2024. Patient has been admitted for monitoring by the primary surgical team and he is seen for a medical consultation for medical management. Active: #. Hypertension Continue home BP med olmesartan/hydrochlorothiazide 20-12.5 mg half tablet once daily Continue to monitor blood pressure #. Status post left total hip arthroplasty in 2023 Post surgery x-ray of the hip showed a left hip total arthroplasty, hardware appears to be appropriately positioned. Defer pain management and DVT prophylaxis to primary surgical team Chronic: #. Hyperlipidemia Continue home Lipitor 40 mg p.o. #. Peripheral neuropathy Continue gabapentin 900 mg p.o. DVT prophylaxis: Defer to primary surgical team Patient is consulted for medical management status post left total hip arthroplasty on 04/09/2024. CODE STATUS: Full code Discussed with: Dr. Nunn Past Medical History Past Medical History: Asthma, Coronary Artery Disease (CAD), Hyperlipidemia, Hypertension, Myocardial Infarction (MT), Osteoarthritis (OA), Sleep Apnea/CPAP/BIPAP Additional Past Medical History / Comment(s): neuropathy, Gout, occular migraines, , hx pancreatitis, kidney stone, "lung exacerbation"-03/2021, Last Myocardial Infarction Date:: 01/02/2020 History of Any Multi-Drug Resistant Organisms: None Reported Past Surgical History: Cholecystectomy, Ear Surgery, Heart Catheterization With Stent, Joint Replacement, Orthopedic Surgery Additional Past Surgical History / Comment(s): lumpectomy left chest wall, LEFT TYMPANOPLASTY x 2. 3 cardiac stents, rt knee replacement, rhinoplasty, arthroscopy rt knee x 2, RT BOONE, COLONOSCOPY, left ant hip Past Anesthesia/Blood Transfusion Reactions: Motion Sickness Date of Last Stent Placement:: 12/2019 Past Psychological History: No Psychological Hx Reported Smoking Status: Never smoker Past Alcohol Use History: Occasional Additional Past Alcohol Use History / Comment(s): QUIT SMOKING 17 YRS AGO ( 1999), FOR 7 YRS, UP TO 2 PPD. Past Drug Use History: Marijuana Additional Drug Use History / Comment(s): OCCASIONAL GUMMIES FOR PAIN-INSTRUCTED TO REFRAIN FROM USE FOR AT LEAST 24 HOURS PRIOR TO PROCEDURE - Past Family History Father Family Medical History: Cancer Additional Family Medical History / Comment(s): PANCREATIC CANCER Brother(s) Family Medical History: Cancer Additional Family Medical History / Comment(s): BLADDER CANCER Sister(s) Family Medical History: Cancer Additional Family Medical History / Comment(s): BREAST CANCER Mother Family Medical History: Congestive Heart Failure (CHF), Osteoarthritis (OA) Additional Family Medical History / Comment(s): Mother had internal bleeding, gout. Medications and Allergies Home Medications Medication Instructions Recorded Confirmed Type Aspirin EC [Ecotrin Low Dose] 81 mg PO DAILY 01/02/20 04/09/24 History Gabapentin [Neurontin] 900 mg PO HS 01/02/20 04/09/24 History Atorvastatin [Lipitor] 40 mg PO HS #90 tab 01/04/20 04/09/24 Rx Tart [place] 1 tab PO DAILY 01/13/22 04/09/24 History Fexofenadine HCl [Kim Allergy] 180 mg PO DAILY 05/17/23 04/09/24 History Olmesartan/Hydrochlorothiazide 0.5 - 1 each PO DAILY 05/17/23 04/09/24 History [Olmesartan-Hctz 20-12.5 mg Tab] Aspirin 325 mg PO BID #60 tab 04/09/24 Rx HYDROcodone/APAP 7.5-325MG [[place] 1 - 2 tab PO Q6H PRN #32 tab 04/09/24 Rx 7.5-325] Sennosides [Senokot] 2 tab PO DAILY PRN #60 tablet 04/09/24 Rx Allergies Allergy/AdvReac Type Severity Reaction Status Date / Time adhesive tape Allergy Unknown red, Verified 04/09/24 11:57 irritated skin cephalexin [From Keflex] Allergy Rash/Hives Verified 04/09/24 11:57 hyaluronic acid Allergy Rash/Hives Verified 04/09/24 11:57 propoxyphene napsylate Allergy Rash/Hives Verified 04/09/24 11:57 [From Darvocet-N] Physical Exam Vitals: Vital Signs Temp Pulse Resp BP BP Pulse Ox 04/09/24 17:37 64 16 168/80 04/09/24 17:32 60 16 172/82 96 04/09/24 17:15 70 16 200/86 98 04/09/24 16:15 60 16 163/75 96 04/09/24 15:45 58 L 16 153/74 97 04/09/24 15:30 64 16 158/76 98 04/09/24 15:15 70 16 163/83 100 04/09/24 15:00 97.1 F L 78 14 151/74 100 04/09/24 13:00 63 16 131/61 98 04/09/24 12:20 98.2 F 65 16 193/83 97 Intake and Output 04/09/24 04/09/24 04/09/24 06:59 14:59 22:59 Intake Total 851 50 Output Total 150 Balance 701 50 Intake: IV 851 50 Output: Estimated Blood Loss 150 Other: Weight 112.9 kg 112.9 kg
[2024-04-10 03:19] VITALS: TEMP 97.7
[2024-04-10 08:24] LABS: HCT 42.8 % (39.6-50.0); HGB 14.2 g/dL (13.0-17.0); MCH 32.9 pg (27.0-32.0); MCHC 33.2 g/dL (32.0-37.0); MCV 99.1 FL (80.0-97.0); NRBC Per 100 WBC 0 X 10*3/uL (0.00-0.01); Platelet Count 232 X 10*3/uL (140-440); RBC 4.32 X 10*6/uL (4.40-5.60); RDW 12.9 % (11.5-14.5); WBC 14.37 X 10*3/uL (4.50-10.00)
[2024-04-10] MEDS: hydroCHLOROthiazide 12.5 MG CAP PO SCH (08:47)
[2024-04-10] MEDS: LOSARTAN 50 MG TAB PO SCH (08:47)
[2024-04-10] MEDS: LORATADINE 10 MG TAB PO SCH (08:48)
[2024-04-10 08:52] VITALS: BP 178/68; PULSE 61; RESP 18
[2024-04-10 09:08] LABS: Basophils # (A) 0.02 X 10*3/uL (0.00-0.10); Basophils % (A) 0.1 %; Eosinophils # (A) 0 X 10*3/uL (0.04-0.35); Eosinophils % (A) 0 %; Lymphocytes # (A) 0.64 X 10*3/uL (0.90-5.00); Lymphocytes % (A) 4.5 %; Monocytes # (A) 1.53 X 10*3/uL (0.20-1.00); Monocytes % (A) 10.6 %; Neutrophils # (A) 12.11 X 10*3/uL (1.80-7.70); Neutrophils % (A) 84.3 %
[2024-04-10 09:33] LABS: African American GFR (CKD) >90 (>60 ml/min/1.73 sqM); Anion Gap 9 mmol/L; Blood Urea Nitrogen 21 mg/dL (9-20); Calcium 9.3 mg/dL (8.4-10.2); Carbon Dioxide 27 mmol/L (22-30); Chloride 102 mmol/L (98-107); Glucose 166 mg/dL (74-99); Magnesium 2.1 mg/dL (1.6-2.3); Non-African American GFR(CKD) 82 (>60 ml/min/1.73 sqM); Potassium 3.8 mmol/L (3.5-5.1); Sodium 138 mmol/L (137-145)
--- NOTE | 2024-04-10 10:13 | P.PN ---
Subjective Progress Note Date: 04/10/24 Hospital course: Patient is a very pleasant 69-year-old male with a past medical history of CAD status post stenting, hypertension, hyperlipidemia, GERD, asthma, and obstructive sleep apnea. He is currently admitted under orthopedic surgery team and is status post left total hip arthroplasty secondary to severe osteoarthritis of left hip. Surgical procedure was completed by Dr. Garcia. We were consulted for medical management throughout hospitalization. Physical exam: Patient seen and fully evaluated at bedside this morning. He is postoperative day 1 and appears to be doing well. Patient sitting up in chair and reports "minimal" postoperative pain in left hip. He reports he has been ambulating with walker without difficulties and stated he did well with physical therapy. Patient denies having any other complaints including headache, lightheadedness, dizziness, chest pain, palpitations, shortness of breath, or experiencing any numbness/tingling/weakness in his extremities. Patient reports he is tolerating oral intake and denies having any nausea or vomiting. Patient states he initially had slight difficulty initiating urination after surgery but states this is resolved and is urinating without any problems. Vital signs reviewed. General: Nontoxic, no distress and appears stated age. Derm: Skin warm and dry, normal coloration for ethnicity. Head: Atraumatic, normocephalic and symmetric. Eyes: EOM's intact, no lid lag, and anicteric sclera Mouth: no lip lesions, mucus membranes moist Cardiovascular: regular rate and rhythm with normal S1S2, no murmur, positive posterior tibial pulses bilaterally, and cap refill < 2 seconds. Lungs: Respirations even, regular, and unlabored on room air. Lungs CTA bilaterally, no rhonchi, no rales, no wheezing, and no accessory muscle usage. Abdominal: soft, nontender to palpation, no guarding, no appreciable organomegaly Ext: ROM intact. No gross muscle atrophy, no edema, no contractures Neuro: Speech clear, face symmetrical and CN II-XII grossly intact with no noted focal neuro deficits Psych: Alert and oriented to person, place, time, and situation. Appropriate and pleasant affect. Assessment and Plan of Care: Status post total hip arthroplasty -Management per primary admitting orthopedic surgery team including DVT prophylaxis, pain management, wound/dressing management, weightbearing, and PT/OT. -Currently DVT prophylaxis with aspirin 3 925 mg twice daily. Leukocytosis -Postoperative leukocytosis with WBC count of 14.37. This is an expected and stable finding. There is no signs of infection and no need for further intervention or testing at this time. Hypertension Monitor vital signs and continue daily medication regimen with- olmesartan/hydrochlorothiazide 20-12.5 mg tablets daily. Data reviewed: Postoperative labs reviewed. CBC showing leukocytosis with WBC count of 14.37 and mild macrocytosis with MCV of 99.1 and stable postoperative hemoglobin of 14.2. BMP unremarkable with exception of mild prerenal azotemia with BUN of 21 and elevated glucose of 166. Magnesium normal findings at 2.1. Vital signs reviewed. Blood pressure elevated this morning at 178/68, heart rate 61, respiratory rate 18, temp 97.7 F, and SpO2 of 97% on room air. Thank you for allowing us to participate in the care of this pleasant patient. Do not hesitate to contact us with questions. Someone can be reached from the [facility] hospitalist group all hours of the day at [phone] or via perfect serve. Patient was seen independently by Nurse Pracitioner. This document was prepared using [employer] dictation software. Please allow for errors in computing machine operator, while rare they do occur. Alex Castellanos NP rendered care for this patient independently, reviewed the findings and plan as documented in the note above and agree with plan. I did not physically speak with or examine the patient on this date. Objective - Vital Signs Vital signs: Vital Signs Temp 97.7 F 04/10/24 02:04 Pulse 77 04/10/24 02:04 Resp 16 04/10/24 02:04 BP 168/75 04/10/24 02:04 Pulse Ox 95 04/10/24 02:04 FiO2 Intake & Output 04/09/24 04/10/24 04/10/24 18:59 06:59 18:59 Intake Total 901 Output Total 150 Balance 751 Weight 112.9 kg 112.9 kg Intake: IV 901 Output: Estimated Blood Loss 150 Other: Voiding Method Toilet # Voids 3 - Labs CBC & Chem 7: 04/10/24 03:06 04/10/24 08:40 Labs: Abnormal Lab Results - Last 24 Hours (Table) 04/10/24 Range/Units 03:06 WBC 14.37 H (4.50-10.00) X 10*3/uL RBC 4.32 L (4.40-5.60) X 10*6/uL MCV 99.1 H (80.0-97.0) FL MCH 32.9 H (27.0-32.0) pg
--- NOTE | 2024-04-10 10:26 | P.DS ---
Providers Expected date of discharge: 04/10/24 Attending physician: iLborio Garcia Consults: 04/09/24 13:13 Consult Physician Routine Consulting Provider: Harvey Edward Consult Reason/Comments: medical management Do you want consulting provider notified?: Yes Primary care physician: Liborio Mane - Discharge Diagnosis(es) (1) Osteoarthritis of left hip Current Visit: Yes Status: Acute (2) S/P total left hip arthroplasty Current Visit: Yes Status: Acute Hospital Course: This is a 69-year-old male with known history of degenerative arthritis of the left hip. The patient presented for evaluation as an outpatient. After discussion and consideration patient elects to proceed with total hip arthroplasty. The patient is seen preoperatively by Dr. Garcia and medically cleared for surgery by their primary care physician. [facility] 04[facility]24 for total hip arthroplasty. The procedure is performed without complication or sequelae. The patient is doing well postoperatively. Labs and vital signs are stable on day of discharge. On day of discharge patient's hip incision is healing well. There is minimal erythema. There is no drainage noted at this time. There is minimal soft tissue swelling to the hip and thigh. Patient has full foot and ankle motion without difficulty or pain. Calf is soft and nontender to palpation. Neurovascular status to the left lower extremity is intact. Patient is discharged home in good condition. Please see med rec for accurate list of home medications. Plan - Discharge Summary Discharge Rx Participant: Yes New Discharge Prescriptions: New HYDROcodone/APAP 7.5-325MG [[place] 7.5-325] 1 - 2 tab PO Q6H PRN #32 tab PRN Reason: Pain Sennosides [Senokot] 2 tab PO DAILY PRN #60 tablet PRN Reason: Constipation Aspirin 325 mg PO BID #60 tab No Action Aspirin EC [Ecotrin Low Dose] 81 mg PO DAILY Gabapentin [Neurontin] 900 mg PO HS Atorvastatin [Lipitor] 40 mg PO HS #90 tab Tart [place] 1 tab PO DAILY Olmesartan/Hydrochlorothiazide [Olmesartan-Hctz 20-12.5 mg Tab] 0.5 - 1 each PO DAILY Fexofenadine HCl [Kim Allergy] 180 mg PO DAILY Discharge Medication List Aspirin EC [Ecotrin Low Dose] 81 mg PO DAILY 08/27/20 [History] Gabapentin [Neurontin] 900 mg PO HS 01/02/20 [History] Atorvastatin [Lipitor] 40 mg PO HS #90 tab 01/04/20 [Rx] Tart [place] 1 tab PO DAILY 01/13/22 [History] Fexofenadine HCl [Kim Allergy] 180 mg PO DAILY 05/17/23 [History] Olmesartan/Hydrochlorothiazide [Olmesartan-Hctz 20-12.5 mg Tab] 0.5 - 1 each PO DAILY 05/17/23 [History] Aspirin 325 mg PO BID #60 tab 04/09/24 [Rx] HYDROcodone/APAP 7.5-325MG [[place] 7.5-325] 1 - 2 tab PO Q6H PRN #32 tab 04/09/24 [Rx] Sennosides [Senokot] 2 tab PO DAILY PRN #60 tablet 04/09/24 [Rx] Follow up Appointment(s)/Referral(s): [facility] [[facility] - 1-2 Days ([facility] will call you to schedule your in home physical therapy visits. ) Liborio Garcia DO [Doctor of Osteopathic Medicine] - 2 Weeks Activity/Diet/Wound Care/Special Instructions: Weightbearing as tolerated with walker. Leave dressing intact. Dressing may be removed by home care nurse or by patient in 7 days. Then change dressing twice daily until follow up. May shower with initial dressing intact and after removal. If dressing become saturated, please remove. Please take aspirin 325mg twice daily for 30 days to prevent blood clots. Recommend use of compression stockings daily until follow up to help prevent swelling and blood clots. May remove at night before sleeping. Please follow-up with [facility] in 2 weeks and call with any questions or concerns, . Discharge Disposition: HOME WITH HOME HEALTH SERVICES
[2024-04-10] MEDS ORDERED: ATORVASTATIN 40 MG TAB PO SCH (21:00)
[2024-04-10] MEDS ORDERED: GABAPENTIN 300 MG CAP PO SCH (21:00)
== END 2024-04-10 11:46 | disposition home health service (06) ==
LOC: OR 11:31 → 4SSUR 14:55 → OR 04-10 11:46
PROVIDERS: ATTEND Orthopaedic Surgery
DX: M16.12 Unilateral primary osteoarthritis, left hip (principal); G89.18 Other acute postprocedural pain; E78.5 Hyperlipidemia, unspecified; G47.33 Obstructive sleep apnea (adult) (pediatric); I25.10 Atherosclerotic heart disease of native coronary artery without angina pectoris; I10 Essential (primary) hypertension; J45.909 Unspecified asthma, uncomplicated; K21.9 Gastro-esophageal reflux disease without esophagitis; I25.2 Old myocardial infarction; G62.9 Polyneuropathy, unspecified; M10.9 Gout, unspecified; D72.829 Elevated white blood cell count, unspecified; F10.90 Alcohol use, unspecified, uncomplicated; Z79.82 Long term (current) use of aspirin; Z79.899 Other long term (current) drug therapy; Z88.1 Allergy status to other antibiotic agents; Z95.5 Presence of coronary angioplasty implant and graft; Z90.49 Acquired absence of other specified parts of digestive tract; Z80.0 Family history of malignant neoplasm of digestive organs; Z87.442 Personal history of urinary calculi; Z87.891 Personal history of nicotine dependence; Z88.8 Allergy status to other drugs, medicaments and biological substances
CPT/HCPCS: 73501; 27130; 64447; J2250; J1100; J0690 ×2; J2405; J2795; J1920; 64999; 80048; 83735; 85025

== ENCOUNTER → 2024-05-16 | Outpatient (CLI) | payer BC | END | disposition home or self-care (01) | LOC: LABWHC1 14:35 | PROVIDERS: ATTEND Psychiatry & Neurology Neurology | DX: G60.9 Hereditary and idiopathic neuropathy, unspecified (principal) ==